=== PATIENT | female | born 1955 | race Caucasian/White ===

== ENCOUNTER → 2022-12-26 07:43 | Outpatient (REF) | payer MEDICARE, OTHER, SELFPAY | LOC: WOUND 07:43 | PROVIDERS: ATTENDING PHYSICIAN Surgery; REFERRING PHYSICIAN Student in an Organized Health Care Education/Training Program | DX: L97.822 Non-pressure chronic ulcer of other part of left lower leg with fat layer exposed (principal); I48.0 Paroxysmal atrial fibrillation; Z79.01 Long term (current) use of anticoagulants; F41.1 Generalized anxiety disorder; I10 Essential (primary) hypertension; I63.411 Cerebral infarction due to embolism of right middle cerebral artery; M17.0 Bilateral primary osteoarthritis of knee; J30.2 Other seasonal allergic rhinitis; K75.81 Nonalcoholic steatohepatitis (NASH) | CPT/HCPCS: 11042; 11045; 99204 ==

== ENCOUNTER → 2023-01-10 10:26 | Outpatient (REF) | payer MEDICARE, OTHER, SELFPAY | LOC: WOUND 10:26 | PROVIDERS: ATTENDING PHYSICIAN Surgery; REFERRING PHYSICIAN Student in an Organized Health Care Education/Training Program | DX: L97.822 Non-pressure chronic ulcer of other part of left lower leg with fat layer exposed (principal); I48.0 Paroxysmal atrial fibrillation; Z79.01 Long term (current) use of anticoagulants; F41.1 Generalized anxiety disorder; I10 Essential (primary) hypertension; I63.411 Cerebral infarction due to embolism of right middle cerebral artery; M17.0 Bilateral primary osteoarthritis of knee; J30.2 Other seasonal allergic rhinitis; K75.81 Nonalcoholic steatohepatitis (NASH) | CPT/HCPCS: 11042; 97597 ==

== ENCOUNTER 2023-02-06 12:35 | Outpatient (RCR) | payer MEDICARE, OTHER, SELFPAY | END 2023-02-06 23:59 | disposition home or self-care (01) | LOC: RPT 12:35 | PROVIDERS: ATTENDING PHYSICIAN Urology; PRIMARYCARE PHYSICIAN Student in an Organized Health Care Education/Training Program | DX: N30.10 Interstitial cystitis (chronic) without hematuria (principal); M62.89 Other specified disorders of muscle; N39.41 Urge incontinence; M62.838 Other muscle spasm; R10.2 Pelvic and perineal pain; M62.81 Muscle weakness (generalized) | CPT/HCPCS: 97140 ==

== ENCOUNTER 2023-03-29 09:29 | Outpatient (RCR) | payer MEDICARE, OTHER, SELFPAY | END 2023-03-29 23:59 | disposition home or self-care (01) | LOC: RPT 09:29 | PROVIDERS: ATTENDING PHYSICIAN Urology; PRIMARYCARE PHYSICIAN Student in an Organized Health Care Education/Training Program | DX: N30.10 Interstitial cystitis (chronic) without hematuria (principal); M62.89 Other specified disorders of muscle; N39.41 Urge incontinence; Z73.6 Limitation of activities due to disability; M62.838 Other muscle spasm; R10.2 Pelvic and perineal pain; M62.81 Muscle weakness (generalized) | CPT/HCPCS: 97140 ==

== ENCOUNTER 2023-04-30 09:35 | Outpatient (RCR) | payer MEDICARE, OTHER, SELFPAY | END 2023-04-30 23:59 | disposition home or self-care (01) | LOC: RPT 09:35 | PROVIDERS: ATTENDING PHYSICIAN Urology; PRIMARYCARE PHYSICIAN Student in an Organized Health Care Education/Training Program | DX: N30.10 Interstitial cystitis (chronic) without hematuria (principal); M62.89 Other specified disorders of muscle; N39.41 Urge incontinence; Z73.6 Limitation of activities due to disability; M62.838 Other muscle spasm; R10.2 Pelvic and perineal pain; M62.81 Muscle weakness (generalized) | CPT/HCPCS: 97140; 97530 ==

== ENCOUNTER → 2023-06-27 08:08 | Outpatient (REF) | payer MEDICARE, OTHER, SELFPAY ==
[2023-06-27 09:18] LABS: % Basophils 0.6 % (0-2); % Eosinophils 0.9 % (0-6); % Immature Granulocytes 0.2 % (0-0.5); % Lymphocytes 24.3 % (20.5-51.1); % Monocytes 9.9 % (1.7-9.3); % Neutrophils 64.1 % (42.2-75.2); Absolute Basophils 0.1 10^3/uL (0-0.2); Absolute Eosinophils 0.1 10^3/uL (0-0.7); Absolute Lymphocytes 2.3 10^3/uL (1.2-3.4); Absolute Monocytes 0.9 10^3/uL (0.1-0.6); Absolute Neutrophils 6.1 10^3/uL (1.4-6.5); Hematocrit 38.8 % (37.0-47.0); Hemoglobin 12.8 g/dL (12.0-16.0); Mean Corpuscular Hgb 28.4 pg (27.0-31.0); Nucleated Red Blood Cells % 0 %; Platelet Count 267 10^3/uL (130-400); Red Blood Cell Count 4.51 10^6/uL (4.20-5.40); Red Cell Dist. Width 17.3 % (11.5-14.5); White Blood Cell Count 9.5 10^3/uL (4.8-10.8)
[2023-06-27 09:27] LABS: INR 1.32; PT 16.4 Sec (11.4-14.6)
[2023-06-27 09:32] LABS: ALT (SGPT) 24 U/L (0-35); AST (SGOT) 27 U/L (14-36); Alkaline Phosphatase 87 U/L (38-126); Blood Urea Nitrogen 26 mg/dl (7-17); Calcium 9.4 mg/dl (8.4-10.2); Carbon Dioxide 29 mmol/L (22-30); Chloride 101 mmol/L (98-107); Glucose 118 mg/dl (70-99); Potassium 3.4 mmol/L (3.5-5.1); Sodium 137 mmol/L (135-145); Total Bilirubin 0.7 mg/dl (0.2-1.3); Total Protein 6.8 g/dl (6.3-8.2); eGFR 54.73
== END ==
LOC: SDSPAT 08:08
PROVIDERS: ATTENDING PHYSICIAN Internal Medicine Cardiovascular Disease; FAMILY PHYSICIAN Family Medicine; OTHER PHYSICIAN Internal Medicine Cardiovascular Disease
DX: Z01.818 Encounter for other preprocedural examination (principal); I48.19 Other persistent atrial fibrillation
CPT/HCPCS: 36415; 75572; 80053; 83735; 85025; 85610; 86850; 86900; 86901; 93005; Q9967

== ENCOUNTER 2023-07-05 05:54 | Day surgery (SDC) | payer MEDICARE, OTHER, SELFPAY ==
[2023-06-27 08:17] VITALS: BMI 39.4
--- NOTE | 2023-06-27 08:45 | W.SUR.PREOP ---
Pre-Operative Surgical Note
-
The pt was seen and examined pre-operatively on 06/27/2023.
While reviewing her medical history, the pt reported a recent UTI within the last 2 weeks.
The pt is a poor historian due to previous CVAs and known cognitive impairment.
Pt reported her UTI was being treated by Dr. Mtz of Urology.
I have reviewed Dr. Mtz's notes extensively from [facility].
The pt reported bloating and urinary burning on 06/17.
Dr. Mtz ordered a UA w/ culture and started the pt prophylactically on Cefuroxime 500 mg PO BID x5 days.
Her urine culture results were + for GBS. Dr. Mtz felt this was more of a contaminant rather than an indicator of infection.
The pt was advised to stop antibiotics, stay hydrated, and start AZO.
Pt requested Pyridium instead of AZO which Dr. Mtz was agreeable to.
She is no longer taking the Pyridium. She notes that her previous symptoms have significantly improved.
The pt was advised to call Dr. Florez's office should her symptoms return as her procedure may need to be postponed.
--- NOTE | 2023-06-27 09:15 | HPS.HSE ---
Family Physician
-
Family Physician: Lakisha William
Chief Complaint
-
Persistent atrial fibrillation.
History of Present Illness
The patient is a 68-year-old female presenting today for persistent atrial fibrillation. She notes significant fatigue and tiredness secondary to this diagnosis. The patient has undergone 4 failed cardioversions in the past for her
arrhythmia. She is on current pharmacological therapy with Amiodarone. She had a Watchman implantation in August [address] Shawn Florez due to an elevated HAS-BLED score. She has known ambulatory dysfunction with multiple previous falls for which
she uses a single point cane to walk. She also has previously experienced 3 strokes for which chronic anticoagulation was highly recommended. Eliquis for oral anticoagulation was initially stopped and switched to dual antiplatelet therapy after her
45 day post-procedural transesophageal echocardiogram in October 2022 demonstrated a well seated Watchman implant without leaks. She, however, was restarted on Eliquis per her primary section gang, Dr. Enrike Cabrera, after a April 2023
transesophageal echocardiogram noted a small leak. It is recommended she undergo pulmonary vein isolation at this time for further arrhythmia management. She denies any current complaints today such as chest pain, shortness of breath, palpitations,
nausea, vomiting, diarrhea, lightheadedness, dizziness, cough, sore throat, or fever.
Medical History
Past Medical History
Past Medical History: Reports Other
Additional Past Medical History:
1. Persistent atrial fibrillation, status post cardioversion x4 and Watchman implantation 08/15/2022; pharmacological therapy with Amiodarone, oral anticoagulation with Eliquis.
2. Hypertension.
3. Hyperlipidemia.
4. Chronic diastolic heart failure, preserved ejection fraction.
5. Mild mitral regurgitation.
6. Chronic lymphedema with venous insufficiency.
7. Obstructive sleep apnea, compliant with CPAP.
8. Chronic kidney disease stage 3.
9. Hiatal hernia.
10. Diverticulosis.
11. Hemorrhoids.
12. Nonalcoholic steatohepatitis with history of elevated transaminases.
13. 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
14. Remote migraines.
15. Mild cognitive impairment.
16. Ambulatory dysfunction with history of falls.
17. Interstitial cystitis with urinary frequency.
18. Neurogenic bladder.
19. Skin cancer, 11/2022, status post excision.
20. ADHD.
21. Anxiety.
22. Depression.
23. Claustrophobia.
24. Osteopenia.
25. History of recurrent COVID-19, last 11/30/2021.
26. Insomnia.
27. Obesity, BMI 39.4.
Past Surgical History: Reports Other
Additional Past Surgical History:
1. Watchman implantation.
2. Cardioversion x4.
3. Transesophageal echocardiogram x2.
4. Right knee arthroscopy.
5. Total abdominal hysterectomy and bilateral salpingo-oophorectomy.
6. Cholecystectomy.
7. .
8. Cysto-hydrodistention with bladder installation.
9. Breast augmentation.
10. Colonoscopy.
Social History
Tobacco: Non-smoker
Alcohol: None
Personal:
Living: Other (The patient lives in a one-story home with her .)
Family History
Family History: Not pertinent
Allergies / Home Medications
Allergy/Medication List:
MEDICATIONS:
1. Amiodarone 200 mg p.o. every evening.
2. Amitriptyline 50 mg p.o. at bedtime.
3. Aripiprazole 2 mg p.o. daily.
4. Hair, skin, nails 1 tablet p.o. daily.
5. Aspirin 81 mg p.o. daily.
6. Atorvastatin 40 mg p.o. at bedtime.
7. Cholecalciferol 50 mcg p.o. at bedtime.
8. Eliquis 5 mg p.o. twice a day.
9. Estradiol 1 application vaginal daily as needed.
10. Furosemide 40 mg p.o. twice a day.
11. Magnesium oxide 800 mg p.o. at bedtime.
12. Melatonin 20 mg p.o. at bedtime.
13. Myrbetriq 25 mg p.o. daily.
14. Prevagen 1 tablet p.o. daily.
15. Multivitamin 1 tablet p.o. daily.
16. Solifenacin 5 mg p.o. daily.
17. Zolpidem 7.5 mg p.o. at bedtime.
ALLERGIES: Nitrofurantoin. Sulfa.
Review of Systems
-
A 12 point ROS was completed and negative except as noted: Yes
Physical Exam
Vital Signs
Blood pressure 103/57. Heart rate 68. Respirations 18. Pulse ox 96% on room air.
Height 5 feet, 2 inches. BMI 97.6 kg. BMI 39.4.
Physical Exam
General: Well Developed, Well Nourished and No Apparent Distress
HEENT: NormoCephalic, Moist mucous membranes, Atraumatic and PERRLA
Respiratory: Clear
Cardiac: Irregular Rhythm
GI: Soft, Non Tender, Non Distended and Other (Obese. )
Musculoskeletal: Other (Patient walks with a single point cane. Chronic left sided weakness noted. )
Skin: Warm and Dry
Neuro: AO x 3 and Other (Mild cognitive deficits at baseline. )
Laboratory Results
-
DIAGNOSTIC STUDIES as of 06/27/2023: White blood cell count 9.5. Hemoglobin 12.8. Platelet count 267,000. PT 16.2. INR 1.34. Sodium 137. Potassium 3.4. BUN 26. Creatinine 1.1. Glucose 118. Calcium 9.4. AST 27. ALT 24. Albumin 4.0. Blood type A
positive.
EKG 06/27/2023: Atrial flutter with variable AV block.
Chest CT 06/27/2023: The left atrium is well opacified including the left atrial appendage with no evidence of left atrial thrombus.
Transesophageal echocardiogram 04/13/2023: Ejection fraction is 55-60%. There is a small area of likely flow around the MARI closure device but no thrombus was noted.
Impression/Plan
-
IMPRESSION/PLAN:
1. Persistent atrial fibrillation: The patient is in need of pulmonary vein isolation with Dr. Shawn Florez on 07/05/2023. The benefits and risks of the procedure have been explained to the patient. The patient understands these risks and wishes to
proceed. She is aware to hold her Eliquis the morning of her procedure unless she is otherwise directed by her surgeon. She will not take any of her medications the morning of her pulmonary vein isolation.
[2023-07-05] VITALS (13 sets, daily range): BP systolic 90–114; BP diastolic 48–82; BMI 38.3
[2023-07-05] MEDS: TYLENOL 1000 MG PO (07:06)
[2023-07-05 08:57] LABS: ACT-LR - POC 263 Seconds (116-155)
[2023-07-05 09:15] LABS: ACT-LR - POC 284 Seconds (116-155)
[2023-07-05 09:32] LABS: ACT-LR - POC 302 Seconds (116-155)
--- NOTE | 2023-07-05 10:24 | ITS.CL.ABL ---
Ground Control Approach Technician - Ablation
Ablation
Procedure Report:
ELECTROPHYSIOLOGY ABLATION STUDY
DATE:: July 05, 2023 REFERRING: Dr. Enrike Cabrera
INDICATION: Persistent supraventricular tachycardia in the form of atrial fibrillation. Prior watchman implantation
HISTORY: See H and P. As above
ANTIARRHYTHMIC DRUG: Amiodarone
PRE-PROCEDURE JUSTICE: No thrombus or leak noted on the Watchman device at intracardiac ultrasound prior to transseptal puncture
PRESENTING RHYTHM: Atrial fibrillation
'TIME-OUT': called and confirmed.
SEDATION/ANESTHESIA: provided via the anesthesia department using general anesthesia (LMA).
INTRAVENOUS/ARTERIAL ACCESS:
Right femoral venous - 8Fr
Left femoral venous - 8 Fr, 6 Fr
[id number] stitch was applied to each femoral vein
Ultrasound guidance for bilateral femoral vein access was utilized by me to obtain access with demonstration of normal anatomy
Inadvertent arterial puncture was noted on the right femoral artery x 1 and pressure was held for the duration of the case. The artery and vein were overlying with the RV underfilled. We did infuse 500 cc of normal saline and venous access was
accomplished in both left and right femoral veins.
CHADS-VASC Score:
HAS-Bled Score
PROCEDURE:
1. A decapolar CS catheter was placed within the CS for mapping and pacing. This was also used as the reference catheter for the 3-D map.
2. The intracardiac ultrasound catheter was positioned in the RA to identify the FO for targeting of transseptal puncture, assist in identification of the pulmonary vein ostia, monitoring pre and post ablation pulmonary vein flow velocities,
monitoring for 'bubble' formation during RF application as a sign of thermal injury, and to monitor for pericardial effusion during mapping and ablation procedure. Left atrial size, LV ejection fraction, and pulmonary vein flows were monitored
pre and post ablation procedure. The other valves were inspected and found to be free of significant regurgitation or stenosis. Direct imaging of the left atrial appendage closure device�watchman demonstrated no left atrial appendage leak or device
related thrombus
3. Half of the calculated heparin bolus was administered prior to the first transeptal puncture. The wire could easily cross in the left atrium across a PFO and this was not utilized for transseptal puncture given the high and anterior position.
We performed transseptal puncture more posterior and inferior for left atrial access. Transseptal puncture was performed to diagnose RA and LA pressure so that safety of LA mapping and ablation could be further assessed, and to access the left
atrium and pulmonary veins for mapping and ablation. This entailed advancing an 8 Fr SL-1 sheath with dilator into the superior vena cava and withdrawing both (monitoring intracardiac ultrasound, fluoroscopy and tip pressure) with the tip oriented
toward the atrial septum. The fossa ovalis was engaged (indicated by sudden displacement of the sheath tip as well as tenting of the fossa seen on intracardiac ultrasound). Left atrial access required a pass with the Brockenbrough needle extended.
Left atrial catheter position was confirmed by pressure monitoring (RA mean pressure 8 mm Hg and LA mean presure 14 mm Hg), LA saturation (99%), as well as fluoroscopy. The sheath was advanced over the dilator and positioned in the left atrium.
This procedure was repeated for the Agilis sheath. The remainder of the calculated heparin bolus was administered and heparin was
infused to maintain ACT at 300 -350 seconds throughout the case.
4. RA pacing was performed via the proximal decapolar poles and LA pacing was performed via the distal decapolar poles.
5. A quadrapolar catheter was first positioned at the His position for His Bundle recording which was tagged via the 3-D Navex sytem, and then passed to the RVA for RV pacing and recording.
6. The 28 mm cryoballoon and 15 mm octapolar G recording catheter placed in each of the LIPV, LSPV, RSPV and the RIPV.
7. Next, a 3-D map was created using Navex. A 3-D reconstructed CT image was compared to the 3-D Navex map to assist in anatomic interpretation, mapping and ablation. The CT image and the NavX image were fused.
8. Pulmonary vein and extrapulmonary vein lesions were given with a 2-minute extrapulmonary vein lesion to the posterior wall outside the left superior pulmonary vein and a 3-minute lesion given to the posterior wall and rafy outside the left
inferior pulmonary vein. Pulmonary vein lesions were 1 distinct unit freezing application to the left superior left inferior and right superior and 1 distinct 3 and 1 distinct 2-minute freezing application to the segmental faction to the right
inferior pulmonary vein. The patient was cardioverted to sinus rhythm and entrance next block was confirmed in all 4 pulm veins and the esophagus cooled down to 30.0 �C with ablation of the left and no loss of phrenic nerve capture was noted.
9. Normal sinus node and AV node function were noted.
TOTAL FLOURO TIME: 12.5 minutes 170 mGy
TOTAL RF DURATION: 0 minutes
REVERSAL OF HEPARIN: 35 mg of protamine, slow IV administration
COMPLICATIONS:
None
Intracardiac US shows no pericardial effusion post ablation.
SUMMARY:
Complex left atrial mapping and ablation.
Isolation of all 4 pulmonary veins as above and extrapulmonary lesions given to the roof and posterior wall outside the left veins.
RECOMMENDATIONS:
1. Admit to monitored bed.
2. Resume anticoagulation for minimum 3 months and given the left atrial appendage appears occluded without leak on today's intracardiac ultrasound if she remains in sinus rhythm we could consider discontinuation of oral anticoagulation at 3 months
3. Out of bed 4 hours
4. Consider discontinuing amiodarone in 1 month
Copy to: Dr. Enrike Cabrera
--- NOTE | 2023-07-05 13:41 | W.PN.UPDATE ---
Update Note
Progress Note Update
68 yo WF s/p PVI (same day). She feels good, no cp, sob, christiana diet, groins stable, EKG SR 1deg AVB. She will continue Eliquis for at least 3 mo, dose at 4pm at home. Continue Amiodarone and metoprolol. Activity restrictions reviewed. She will f/u
Rick in 2 mo. She did get Eliquis samples [address] Florez office prior to d/c. She is for d/c home after 230p.
SUMMARY:
Complex left atrial mapping and ablation.
Isolation of all 4 pulmonary veins as above and extrapulmonary lesions given to the roof and posterior wall outside the left veins.
RECOMMENDATIONS:
1. Admit to monitored bed.
2. Resume anticoagulation for minimum 3 months and given the left atrial appendage appears occluded without leak on today's intracardiac ultrasound if she remains in sinus rhythm we could consider discontinuation of oral anticoagulation at 3 months
3. Out of bed 4 hours
4. Consider discontinuing amiodarone in 1 month
Copy to: Dr. Enrike Cabrera
== END 2023-07-05 14:30 | disposition home or self-care (01) ==
LOC: CATH 05:54
PROVIDERS: ATTENDING PHYSICIAN Internal Medicine Cardiovascular Disease; FAMILY PHYSICIAN Family Medicine; OTHER PHYSICIAN Internal Medicine Cardiovascular Disease
DX: I48.19 Other persistent atrial fibrillation (principal); I13.0 Hypertensive heart and chronic kidney disease with heart failure and stage 1 through stage 4 chronic kidney disease, or unspecified chronic kidney disease; E78.5 Hyperlipidemia, unspecified; G47.33 Obstructive sleep apnea (adult) (pediatric); I34.0 Nonrheumatic mitral (valve) insufficiency; K44.9 Diaphragmatic hernia without obstruction or gangrene; K57.90 Diverticulosis of intestine, part unspecified, without perforation or abscess without bleeding; I89.0 Lymphedema, not elsewhere classified; I87.2 Venous insufficiency (chronic) (peripheral); Z87.19 Personal history of other diseases of the digestive system; K75.81 Nonalcoholic steatohepatitis (NASH); R74.01 Elevation of levels of liver transaminase levels; Z86.73 Personal history of transient ischemic attack (TIA), and cerebral infarction without residual deficits; G43.909 Migraine, unspecified, not intractable, without status migrainosus; G31.84 Mild cognitive impairment of uncertain or unknown etiology; R26.2 Difficulty in walking, not elsewhere classified; N30.10 Interstitial cystitis (chronic) without hematuria; R35.0 Frequency of micturition; N31.9 Neuromuscular dysfunction of bladder, unspecified; Z85.828 Personal history of other malignant neoplasm of skin; F41.9 Anxiety disorder, unspecified; F90.9 Attention-deficit hyperactivity disorder, unspecified type; F32.A Depression, unspecified; F40.240 Claustrophobia; M85.80 Other specified disorders of bone density and structure, unspecified site; Z86.16 Personal history of COVID-19; G47.00 Insomnia, unspecified; E66.9 Obesity, unspecified; Z68.39 Body mass index [BMI] 39.0-39.9, adult; Z79.82 Long term (current) use of aspirin; Z79.01 Long term (current) use of anticoagulants; Z79.899 Other long term (current) drug therapy; Z95.818 Presence of other cardiac implants and grafts
CPT/HCPCS: C1766; C1894; C1769; C1730; C1893; C1733; C1892; C1759; 85347; 93005; 93656; Q9967

== ENCOUNTER → 2024-01-09 10:27 | Outpatient (REF) | payer MEDICARE, OTHER, SELFPAY | LOC: HWRAD 10:27 | PROVIDERS: ATTENDING PHYSICIAN Nurse Practitioner; FAMILY PHYSICIAN Nurse Practitioner Family | DX: R05.1 Acute cough (principal); K59.00 Constipation, unspecified | CPT/HCPCS: 71046; 74018 ==

== ENCOUNTER 2024-01-28 06:51 | Inpatient (IN) | payer MEDICARE, OTHER, SELFPAY ==
[2024-01-03 10:16] VITALS: BMI 39.3
[2024-01-03 10:46] LABS: Hematocrit 40.2 % (37.0-47.0); Hemoglobin 13.2 g/dL (12.0-16.0); Mean Corp Hgb Conc. 32.8 g/dL (33.0-37.0); Mean Corpuscular Hgb 29.1 pg (27.0-31.0); Mean Corpuscular Volume 88.5 fL (81.0-99.0); Mean Platelet Volume 9.7 fL (7.4-10.4); Platelet Count 250 10^3/uL (130-400); Red Blood Cell Count 4.54 10^6/uL (4.20-5.40); Red Cell Dist. Width 13.8 % (11.5-14.5); White Blood Cell Count 6.2 10^3/uL (4.8-10.8)
[2024-01-03 11:11] LABS: ALT (SGPT) 29 U/L (0-35); AST (SGOT) 28 U/L (14-36); Albumin 3.8 g/dl (3.5-5.0); Alkaline Phosphatase 93 U/L (38-126); Blood Urea Nitrogen 16 mg/dl (7-17); Calcium 8.9 mg/dl (8.4-10.2); Carbon Dioxide 33 mmol/L (22-30); Chloride 98 mmol/L (98-107); Estimated Creatinine Clearance 65 ml/min; Glucose 91 mg/dl (70-99); Potassium 3.4 mmol/L (3.5-5.1); Sodium 143 mmol/L (135-145); Total Bilirubin 0.5 mg/dl (0.2-1.3); Total Protein 6.5 g/dl (6.3-8.2); eGFR > 60.00
[2024-01-03 13:13] LABS: Glycohemoglobin (HgbA1c) 5.9 % (4.0-5.6)
[2024-01-22 11:37] VITALS: BMI 39.3
--- NOTE | 2024-01-23 08:54 | PTCARENOTE ---
Jeniffer Bean made aware of CXR report from 01/09/24.
[2024-01-28] VITALS (15 sets, daily range): BP systolic 98–130; BP diastolic 53–90; PULSE 86; O2SAT 95; BMI 39.3
[2024-01-28] MEDS: TYLENOL 650 MG PO ×4 (07:45→20:46)
[2024-01-28] MEDS: MOBIC 15 MG PO (07:45)
[2024-01-28] MEDS: NORMOSOL-R/PLASMALYTE-A 1000 IV (11:43)
[2024-01-28] MEDS: ROXICODONE 5 MG PO ×2 (11:47→17:22)
--- NOTE | 2024-01-28 13:34 | W.PN.ORTHO ---
Today's Communication / Plan
-
D/c when medically stable.
Assessment
.
Distal Motor Intact: Yes
Dressing:
Small areas of bleeding along incision line.
Assessment:
R knee OA s/p R TKA w/ Dr Eisenberg 01/28/24
DVT prophylaxis - Eliquis at modified dosing, b/l venous foot pumps
- Will resume home Eliquis dosing POD 3 if hemodynamically stable
HTN - + parameters - monitor BP
Persistent atrial fibrillation, status post cardioversion x4, ablation 07/2023, and Watchman implantation 08/2022 - monitor on tele
- Continue Amiodarone, Metoprolol
- Eliquis as stated above
Chronic diastolic heart failure, preserved ejection fraction - reduce hourly IVF rate to prevent fluid overload
- Resume Lasix w/ BP parameters to prevent hypotension
Obstructive sleep apnea, compliant with CPAP - monitor O2
- IS
- Continue CPAP HS
CKD stage 3 - minimize nephrotoxins
Hiatal hernia - add Pepcid HS
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
Ambulatory dysfunction with history of falls
- On fall precautions
Mild cognitive impairment - minimize opioids as able
Obesity, BMI 39.2 - would benefit from prophylactic Cefadroxil upon d/c
HLD
Mild mitral regurgitation
Chronic lymphedema with venous insufficiency
Diverticulosis
Hemorrhoids
Nonalcoholic steatohepatitis with history of elevated transaminases
Remote migraines
Interstitial cystitis with urinary frequency
Neurogenic bladder
Skin cancer, 11/2022, status post excision
ADHD
Anxiety
Depression
Claustrophobia
Osteopenia
History of recurrent COVID-19, last 11/30/2021
Insomnia
Mild hypokalemia
Prediabetes, A1c 5.9
Plan
.
Surgery / Date: R TKA w/ Dr Eisenberg 01/28/24
DVT Prophylaxis: Other (Eliquis )
Activity:
Out of bed.
PT/OT
Discharge Plan: Home w/ Outpatient PT
Subjective
.
.:
Patient examined resting in bed.
R knee pain 'creeping up' - pain medications adjusted.
Denies any other new significant complaints.
Vital Signs and Labs
.
Vital Signs and Labs:
Lab Results
01/03/24 10:13
01/03/24 10:13
Temp Pulse Resp BP Pulse Ox
98.2 F 90 18 130/90 98
01/28/24 07:19 01/28/24 07:19 01/28/24 07:19 01/28/24 07:19 01/28/24 07:19
Physical Exam
-
HEENT: No pallor, cyanosis, or jaundice. Throat clear.
NECK: Supple. No JVD.
RESPIRATORY: Lungs clear to auscultation.
CVS: S1, S2 normal. RRR.�
ABDOMEN: Soft, non-tender. No distension. Obese.
EXTREMITIES: Strength equal, no calf pain with palpation/dorsiflexion. Calves soft.
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 Mild cognitive deficits at baseline. gunner's mate g grossly intact
[2024-01-28] MEDS: ROXICODONE 2.5 MG PO (13:59)
[2024-01-28] MEDS: NEURONTIN 200 MG PO ×2 (14:00→20:47)
--- NOTE | 2024-01-28 15:07 | RESPNOTE ---
Patient refused CPAP for HS at this time. States she doesn't use it at home either.
[2024-01-28] MEDS: ANCEF 5 IV (17:20)
[2024-01-28] MEDS: SENOKOT PO (20:14)
[2024-01-28] MEDS: TOPROL XL 50 MG PO (20:44)
[2024-01-28] MEDS: ELAVIL 50 MG PO (20:45)
[2024-01-28] MEDS: VITAMIN D3 (cholecalciferol) 50 MCG PO (20:45)
[2024-01-28] MEDS: SENOKOT 17.2 MG PO (20:45)
[2024-01-28] MEDS: PACERONE 200 MG PO (20:45)
[2024-01-28] MEDS: DECADRON 4 MG PO (20:46)
[2024-01-28] MEDS: PEPCID 20 MG PO (20:46)
[2024-01-28] MEDS: COLACE 100 MG PO (20:47)
[2024-01-28] MEDS: BACTROBAN 2% OINTMENT 1 APPLIC NASAL (20:47)
[2024-01-28] MEDS: AMBIEN 7.5 MG PO (20:47)
[2024-01-28] MEDS: ELIQUIS 2.5 MG PO (20:47)
[2024-01-28] MEDS: MELATONIN 5 MG PO (20:48)
[2024-01-28] MEDS: LIPITOR 40 MG PO (20:49)
[2024-01-28] MEDS: ROXICODONE 10 MG PO (21:54)
[2024-01-29] VITALS (8 sets, daily range): BP systolic 72–122; BP diastolic 51–77; PULSE 65–111; O2SAT 88–95; BMI 41.1
[2024-01-29] MEDS: TYLENOL PO (01:39)
[2024-01-29] MEDS: ANCEF 5 IV (01:45)
[2024-01-29] MEDS: TYLENOL 650 MG PO ×6 (03:19→23:35)
[2024-01-29] MEDS: ROXICODONE 10 MG PO ×2 (03:19→08:03)
[2024-01-29 05:37] LABS: Hematocrit 34.2 % (37.0-47.0); Hemoglobin 10.8 g/dL (12.0-16.0)
[2024-01-29 06:51] LABS: Hepatitis C Antibody Negative (Negative)
[2024-01-29] MEDS: VESICARE 10 MG PO (07:57)
[2024-01-29] MEDS: TOPROL XL 50 MG PO ×2 (07:58→20:51)
[2024-01-29] MEDS: COLACE 100 MG PO ×2 (07:58→20:52)
[2024-01-29] MEDS: ABILIFY 2 MG PO (07:59)
[2024-01-29] MEDS: ASPIR LOW (ENTERIC COATED) 81 MG PO (07:59)
[2024-01-29] MEDS: BACTROBAN 2% OINTMENT 1 APPLIC NASAL ×2 (07:59→20:50)
[2024-01-29] MEDS: DECADRON 4 MG PO ×2 (07:59→20:53)
[2024-01-29] MEDS: PACERONE 200 MG PO ×2 (07:59→20:53)
[2024-01-29] MEDS: NEURONTIN 200 MG PO ×2 (07:59→20:52)
[2024-01-29] MEDS: ELIQUIS 2.5 MG PO ×2 (08:00→20:53)
[2024-01-29] MEDS: SENOKOT 17.2 MG PO ×2 (08:00→20:53)
[2024-01-29] MEDS: ProAmatine 2.5 MG PO ×2 (09:40→17:15)
[2024-01-29] MEDS: NSS 250 IV (09:40)
--- NOTE | 2024-01-29 10:11 | CM ---
Patient seen at bedside with Loco KENT explained & signed.
IA completed. Case management consult completed.
Lives in a rancher with , 1 step to enter
DME: cane, walker, shower chair, commode, handrails toilet, grab bars, cpap
PLOF: ambulate with walker, was driving
Patient has outpatient PT set up for tomorrow at [facility]
therapy to re-eval as patient - patient low b/p, rec bolus fluid, dose midodrine
PCP: Lakisha Lane
Pharmacy: [facility], [facility], [place]
PLAN: Discharge when stable, outpatient therapy tomorrow
--- NOTE | 2024-01-29 11:09 | W.PN.ORTHO ---
Today's Communication / Plan
-
Monitor orthostatics and drowsiness.
Work w/ PT and OT as able.
Can d/c later today if clinically stable.
Assessment
.
Distal Motor Intact: Yes
Dressing:
Small areas of old bleeding along incision line. Larger area noted towards inferior portion of dressing.
Assessment:
R knee OA s/p R TKA w/ Dr Eisenberg 01/28/24
DVT prophylaxis - Eliquis at modified dosing, b/l venous foot pumps
- Will resume home Eliquis dosing POD 3 if remaining hemodynamically stable
Drowsiness POD 1 - likely 2* Oxycodone 10 mg today and underlying untreated KERI - reduce Oxycodone dosing (tolerated 5 mg yesterday), STRONGLY encouraged CPAP HS use
Symptomatic orthostasis w/ OT - IVF bolus, PO fluids encouraged, Midodrine, minimize opioids as able - will reassess orthostatic VS after bolus
HTN - + parameters - monitor BP
Persistent atrial fibrillation, status post cardioversion x4, ablation 07/2023, and Watchman implantation 08/2022 - maintaining rate controlled a fib on tele
- Continue Amiodarone, Metoprolol w/ SBP and HR parameters
- Eliquis as stated above
Chronic diastolic heart failure, preserved ejection fraction - reduced hourly IVF rate to prevent fluid overload
- Resumed Lasix w/ BP parameters to prevent hypotension
KERI, recent non-compliance w/ CPAP - encouraged CPAP HS use given low SpO2 overnight and current daytime somnolence
- IS
CKD stage 3 - minimized nephrotoxins
Hiatal hernia - added Pepcid HS
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
Ambulatory dysfunction with history of falls
- On fall precautions
Mild cognitive impairment - minimize opioids as able
Obesity, BMI 39.2 - would benefit from prophylactic Cefadroxil upon d/c
HLD
Mild mitral regurgitation
Chronic lymphedema with venous insufficiency
Diverticulosis
Hemorrhoids
Nonalcoholic steatohepatitis with history of elevated transaminases
Remote migraines
Interstitial cystitis with urinary frequency
Neurogenic bladder
Skin cancer, 11/2022, status post excision
ADHD
Anxiety
Depression
Claustrophobia
Osteopenia
History of recurrent COVID-19, last 11/30/2021
Insomnia
Mild hypokalemia
Prediabetes, A1c 5.9
Plan
.
Surgery / Date: R TKA w/ Dr Eisenberg 01/28/24
DVT Prophylaxis: Other (Eliquis )
Activity:
Out of bed.
PT/OT
Discharge Plan: Home w/ Outpatient PT
Subjective
.
.:
Patient examined resting in bed today.
Drowsiness noted, likely multifactorial.
Symptomatic orthostasis w/ OT this AM.
Vital Signs and Labs
.
Vital Signs and Labs:
Lab Results
01/29/24 05:24
01/03/24 10:13
Temp Pulse Resp BP Pulse Ox
98.3 F 94 20 101/55 93
01/29/24 03:05 01/29/24 07:58 01/29/24 03:05 01/29/24 07:58 01/29/24 03:18
Non-invasive Hgb result: 8.9
Physical Exam
-
HEENT: No pallor, cyanosis, or jaundice. Throat clear.
NECK: Supple. No JVD.
RESPIRATORY: Faint crackles in b/l bases.
CVS: Irregular irregular.
ABDOMEN: Soft, non-tender. No distension. Obese.
EXTREMITIES: Strength equal, no calf pain with palpation/dorsiflexion. Calves soft.
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 No focal deficits. mva operator grossly intact
--- NOTE | 2024-01-29 12:03 | PTCARENOTE ---
Addendum entered by Yady Marcial RN 01/29/24 12:49:
Bed alarm engaged. Care remains ongoing.
Original Note:
RN informed by Reginald Bean Pa-c that she heard a rolling walker being used within the room. When she went to check on the pt the pt was sitting up in the chair. Per the pt and the woke the pt from sleep and assisted her into the chair
to eat lunch, pt denying dizziness to Vanessa at that time. RN into room and found pt sitting the chair with no socks and the telemetry box hanging between her legs. RN applied blood pressure cuff and asked pt ' how are you feeling' pt responded ' I
almost fell getting out of bed, I am very unsteady and kept losing my balance'. Pt at this time c/o dizziness, drowsiness and pain, requesting to get back into bed due to not liking her lunch. BP 95/64. Reginald Bean made aware and BP re-cycled 87/51 pt
continuing to c/o dizziness, drowsiness and pain. Reginald Bean updated. Pt denies CP, SOB, nausea. Pt and instructed on calling for assistance, safe ambulation, and ongoing hypotension affecting safe ambulation. verbalized
understanding, pt with concerns regarding pain and need for pain medication as well as dissatisfaction with lunch. Zee from PT to bedside to evaluate pt. Care ongoing at this time.
--- NOTE | 2024-01-29 15:32 | W.PN.UPDATE ---
Update Note
Progress Note Update
Pt noted to be overly drowsy while working w/ OT this AM.
Of note, pt did receive multiple doses of Oxycodone 10 mg overnight and had one shortly before her OT session.
AM OT session further complicated by symptomatic orthostasis - IVF bolus, Midodrine ordered.
Per PT and OT, BPs now relatively stable during afternoon session.
Drowsiness and slow processing, however, still continue to be issues. She does have mild cognitive issues at baseline. Symptoms reportedly better than this AM but still limiting her progression with therapy.
I have decreased Oxycodone as follows: 2.5 mg PO q4hprn for moderate pain, 5 mg PO q4hprn for severe pain.
Will continue with Tylenol, Decadron, and Gabapentin for post-surgical pain.
Did also advise strict CPAP compliance as untreated KERI can also be attributing to her daytime somnolence.
Will monitor further overnight. Hopeful things will continue to improve w/ time.
[2024-01-29] MEDS: ELAVIL 50 MG PO (22:30)
[2024-01-29] MEDS: AMBIEN PO (22:30)
[2024-01-29] MEDS: VITAMIN D3 (cholecalciferol) 50 MCG PO (22:30)
[2024-01-29] MEDS: LIPITOR 40 MG PO (22:30)
[2024-01-29] MEDS: PEPCID 20 MG PO (22:30)
[2024-01-30 02:55] VITALS: BP 119/80
[2024-01-30] MEDS: TYLENOL 650 MG PO ×3 (04:49→11:54)
--- NOTE | 2024-01-30 05:28 | DOWNTIME ---
There was a [employer] Client [employer] Downtime on 01/30/2024 from 0100 to 01/30/2024 at 0350. Downtime documentation of patient's care, including medication administrations, has been reconciled in the electronic record per guidelines. Refer to the
patient's paper chart under the miscellaneous tab to see printed paper medication records and downtime forms.
[2024-01-30 06:00] VITALS: BMI 41.3
[2024-01-30 08:11] VITALS: BP 124/75
[2024-01-30] MEDS: ABILIFY 2 MG PO (08:12)
[2024-01-30] MEDS: VESICARE 10 MG PO (08:12)
[2024-01-30] MEDS: TOPROL XL 50 MG PO (08:13)
[2024-01-30] MEDS: ELIQUIS 2.5 MG PO (08:13)
[2024-01-30] MEDS: ASPIR LOW (ENTERIC COATED) 81 MG PO (08:13)
[2024-01-30] MEDS: NEURONTIN 200 MG PO (08:13)
[2024-01-30] MEDS: PACERONE 200 MG PO (08:14)
[2024-01-30] MEDS: DECADRON 4 MG PO (08:14)
[2024-01-30] MEDS: ProAmatine PO (08:14)
[2024-01-30] MEDS: SENOKOT 17.2 MG PO (08:15)
[2024-01-30] MEDS: COLACE 100 MG PO (08:15)
[2024-01-30 09:00] VITALS: BP 116/77; BP 128/94; PULSE 73; O2SAT 94
--- NOTE | 2024-01-30 09:02 | W.PN.ORTHO ---
Addendum entered and electronically signed by Jeniffer Bean PA-C 01/30/24 11:02:
BMI incorrect. BMI 41.3.
Original Note:
Today's Communication / Plan
-
Await PT recs. Pt did well w/ OT this AM.
D/c later today if remaining clinically stable.
Assessment
.
Distal Motor Intact: Yes
Dressing:
Small areas of old bleeding along incision line. Larger area noted towards inferior portion of dressing. Unchanged since yesterday but will change prior to d/c.
Assessment:
R knee OA s/p R TKA w/ Dr Eisenberg 01/28/24
DVT prophylaxis - Eliquis at modified dosing, b/l venous foot pumps
- Will resume home Eliquis dosing POD 3 since hemodynamically stable
Drowsiness POD 1 2* Oxycodone (revealed POD 2 shes had problems with this previously) and underlying untreated KERI
- Stop Oxycodone altogether in favor of Tylenol #3; pt has tolerated well previously.
- Advised strict CPAP compliance
- Hold Melatonin while on Ambien and post-surgical narcotic
- Drowsiness improved by POD 2
Symptomatic orthostasis w/ OT POD 1- s/p IVF bolus, encouraged PO fluids, Midodrine x2, minimized opioids as able
- Orthostatic VS improved
HTN - + parameters - BPs now stable
Persistent atrial fibrillation, status post cardioversion x4, ablation 07/2023, and Watchman implantation 08/2022 - maintaining rate controlled a fib/flutter on tele
- Continue Amiodarone, Metoprolol w/ SBP and HR parameters
- Eliquis as stated above
Chronic diastolic heart failure, preserved ejection fraction - reduced hourly IVF rate to prevent fluid overload
- Weight up in comparison to yesterday -> Normal weight around 220 lbs per cardio clearance. Will give IV Lasix 20 mg this morning. Can resume home PO Lasix BID tonight w/ smaller BP parameters. Was held initially due to orthostasis yesterday.
Apparently pt also held Lasix prior to surgery as well. Pt denies SOB and lungs overall CTA. VSS. Is aware to follow low sodium diet, fluid restriction, and to weigh herself daily. Aware to contact her poultry cutter for further concerning weight
gains. Advised to f/u w/ cardio in near future given CV hx
KERI, recent non-compliance w/ CPAP - advised restarting CPAP
- IS
CKD stage 3 - minimized nephrotoxins
Hiatal hernia - added Pepcid HS
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
Ambulatory dysfunction with history of falls
- On fall precautions
Mild cognitive impairment - continue to minimize opioids as able
Anemia 2* acute blood loss - pt asymptomatic, hemodynamically stable
Obesity, BMI 39.2 - would benefit from prophylactic Cefadroxil upon d/c
HLD
Mild mitral regurgitation
Chronic lymphedema with venous insufficiency
Diverticulosis
Hemorrhoids
Nonalcoholic steatohepatitis with history of elevated transaminases
Remote migraines
Interstitial cystitis with urinary frequency
Neurogenic bladder
Skin cancer, 11/2022, status post excision
ADHD
Anxiety
Depression
Claustrophobia
Osteopenia
History of recurrent COVID-19, last 11/30/2021
Insomnia
Mild hypokalemia - will supplement today w/ reintroduction of Lasix
Prediabetes, A1c 5.9
Plan
.
Surgery / Date: R TKA w/ Dr Eisenberg 01/28/24
DVT Prophylaxis: Other (Eliquis )
Activity:
Out of bed.
PT/OT
Discharge Plan: Home w/ Outpatient PT
Subjective
.
.:
Patient resting comfortably in her bed.
Pt appears less drowsy then yesterday. Conversant and reportedly feeling well.
Denies any new significant complaints.
Eager for potential d/c today.
Vital Signs and Labs
.
Vital Signs and Labs:
Lab Results
01/29/24 05:24
01/03/24 10:13
Temp Pulse Resp BP Pulse Ox
98 F 98 20 124/75 94
01/30/24 08:11 01/30/24 08:13 01/30/24 08:11 01/30/24 08:14 01/30/24 08:11
Non-invasive Hgb result: 9.7
Physical Exam
-
HEENT: No pallor, cyanosis, or jaundice. Throat clear.
NECK: Supple. No JVD.
RESPIRATORY: Lungs clear to auscultation.
CVS: Irregular irregular.
ABDOMEN: Soft, non-tender. Obese.
EXTREMITIES: Post-surgical R knee edema. Strength equal, no calf pain with palpation/dorsiflexion. Calves soft.
CASH CONTROL SPECIALIST: AOx3. No focal deficits. blockmason grossly intact
[2024-01-30] MEDS: KCL 20 MEQ PO (09:25)
[2024-01-30] MEDS: LASIX 20 MG IV (09:25)
[2024-01-30 10:37] VITALS: BP 114/87; BP 126/70; PULSE 98
--- NOTE | 2024-01-30 10:50 | W.DS.TRANS ---
DC Summary - Layout Designer
-
Discharge Instructions:
Discharge Diagnosis/Procedures R knee OA s/p R TKA w/ Dr Eisenberg 01/28/24
Diet 2 Gram Sodium,Restrict fluids to 48 oz
Activity As tolerated,With Walker
Driving Restrictions Not until seen by your Dr
Bathing Restrictions OK to Shower
Other Services PT
Wound Care Dressing to be removed 1 week post-surgery.
Specialty Instructions Weigh Daily
Instructions:
Stand-Alone Forms: Total Hip/Knee Replacement D/C
Changes to Home Medications: Yes
Discharge Medications:
DC Medications w/original date entered in [employer]
amiodarone 200 mg tablet (Pacerone) 200 mg PO BID Arrhythmia 06/04/20
estradiol 0.01% (0.1 mg/gram) vaginal cream 1 applic vaginal DIRECTED HORMONE 06/04/20
aripiprazole 2 mg tablet 2 mg PO DAILY Mental Health/Anxiety 03/29/22
cholecalciferol (vitamin D3) 25 mcg (1,000 unit) capsule (Vitamin D3) 50 mcg PO HS Supplement 03/29/22
atorvastatin 40 mg tablet 40 mg PO HS High Cholesterol 04/03/22
zolpidem 10 mg tablet (Ambien) 7.5 mg PO HS Sleep 04/03/22
amitriptyline 50 mg tablet 50 mg PO HS Mental Health/Anxiety 08/01/22
Prevagen 1 tab PO DAILY Supplement 08/15/22
aspirin 81 mg tablet,delayed release 81 mg PO DAILY #1 tab 08/15/22
solifenacin 5 mg tablet 10 mg PO DAILY OAB 08/15/22
Hair, Skin and Nails (biotin) 1 tab PO HS Supplement 06/25/23
apixaban 5 mg tablet (Eliquis) 5 mg PO BID Blood Clot Prevention/Tx 06/25/23
multivitamin 1 tab PO DAILY Supplement 06/25/23
metoprolol succinate 25 mg tablet,extended release 24 hr 50 mg PO BID Blood Pressure 07/05/23
magnesium 200 mg tablet 400 mg PO HS Supplement 01/22/24
Saccharomyces boulardii 250 mg capsule (Florastor) 250 mg PO BID #14 caps 01/28/24
apixaban 2.5 mg tablet (Eliquis) 2.5 mg PO ONCE@1999 #1 tab 01/28/24
cefadroxil 500 mg capsule 500 mg PO BID #14 caps 01/28/24
dexamethasone 4 mg tablet 4 mg PO Q12H Anti-inflammatory #6 tabs 01/28/24
docusate sodium 100 mg capsule 100 mg PO BID #30 caps 01/28/24
gabapentin 100 mg capsule 200 mg (2 x 100 mg) PO BID neuropathic pain #20 caps 01/28/24
mupirocin 2 % topical ointment 1 applic topical BID Infection 01/28/24
ondansetron HCl 4 mg tablet 4 mg PO Q6H PRN nausea and vomiting #30 tabs 01/28/24
sennosides 8.6 mg tablet (Senna Laxative) 17.2 mg (2 x 8.6 mg) PO BID #30 tabs 01/28/24
acetaminophen 300 mg-codeine 30 mg tablet 1 - 2 tab PO Q6H PRN moderate-severe pain #30 tabs 01/30/24
acetaminophen 325 mg tablet (Tylenol) 650 mg (2 x 325 mg) PO Q6H PRN mild pain #60 tabs 01/30/24
furosemide 20 mg tablet 40 mg (2 x 20 mg) PO BID Fluid retention/Swelling #1 tab 01/30/24
polyethylene glycol 3350 17 gram oral powder packet (Miralax) 17 g PO DAILY #14 ea 01/30/24
Home Medication Changes
Saccharomyces boulardii 250 mg capsule (Florastor) 250 mg PO BID #14 caps 01/28/24
apixaban 2.5 mg tablet (Eliquis) 2.5 mg PO ONCE@1999 #1 tab 01/28/24
cefadroxil 500 mg capsule 500 mg PO BID #14 caps 01/28/24
dexamethasone 4 mg tablet 4 mg PO Q12H Anti-inflammatory #6 tabs 01/28/24
docusate sodium 100 mg capsule 100 mg PO BID #30 caps 01/28/24
gabapentin 100 mg capsule 200 mg (2 x 100 mg) PO BID neuropathic pain #20 caps 01/28/24
mupirocin 2 % topical ointment 1 applic topical BID Infection 01/28/24
ondansetron HCl 4 mg tablet 4 mg PO Q6H PRN nausea and vomiting #30 tabs 01/28/24
sennosides 8.6 mg tablet (Senna Laxative) 17.2 mg (2 x 8.6 mg) PO BID #30 tabs 01/28/24
acetaminophen 300 mg-codeine 30 mg tablet 1 - 2 tab PO Q6H PRN moderate-severe pain #30 tabs 01/30/24
acetaminophen 325 mg tablet (Tylenol) 650 mg (2 x 325 mg) PO Q6H PRN mild pain #60 tabs 01/30/24
polyethylene glycol 3350 17 gram oral powder packet (Miralax) 17 g PO DAILY #14 ea 01/30/24
Pending Results: No
--- NOTE | 2024-01-30 11:16 | CM ---
Patient seen at bedside with .
IMM explained & signed. In chart.
Has outpatient PT scheduled with [facility] on Sunday
PLAN: Home, outpatient therapy set up
to transport
[2024-01-30] MEDS: PREVNAR 20 0.5 ML IM (11:54)
[2024-01-30] MEDS: FLUAD (65 yr+) 2024-2025 FORMULA 0.5 ML IM (11:55)
[2024-01-30 12:10] VITALS: BP 108/60
== END 2024-01-30 12:53 | disposition home or self-care (01) | DRG 470 ==
LOC: 2 SOUTH 06:51
PROVIDERS: Internal Medicine Cardiovascular Disease; ADMITTING PHYSICIAN Specialist; FAMILY PHYSICIAN Family Medicine; REFERRING PHYSICIAN Internal Medicine Cardiovascular Disease
PROC: 0SRC069 Replacement of Right Knee Joint with Oxidized Zirconium on Polyethylene Synthetic Substitute, Cemented, Open Approach (ICD-10-PCS; 2024-01-28)
DX: M17.11 Unilateral primary osteoarthritis, right knee (principal); I48.19 Other persistent atrial fibrillation; Z68.41 Body mass index [BMI] 40.0-44.9, adult; I13.0 Hypertensive heart and chronic kidney disease with heart failure and stage 1 through stage 4 chronic kidney disease, or unspecified chronic kidney disease; I50.32 Chronic diastolic (congestive) heart failure; D62 Acute posthemorrhagic anemia; E66.9 Obesity, unspecified; N18.30 Chronic kidney disease, stage 3 unspecified
CPT/HCPCS: 36415; 73560; 80053; 83036; 85014; 85018; 85027; 86803; 87070; 90662; 90677; 97110; 97116; 97162; 97166; 97530; 97535; C1713; C1776; G0008; G0009

== ENCOUNTER 2024-04-07 07:52 | Inpatient (IN) | payer MEDICARE, OTHER, SELFPAY ==
[2024-04-01 13:30] VITALS: BMI 36.1
[2024-04-01 14:08] LABS: Hematocrit 39.2 % (37.0-47.0); Hemoglobin 12.4 g/dL (12.0-16.0); Mean Corp Hgb Conc. 31.6 g/dL (33.0-37.0); Mean Corpuscular Hgb 29.3 pg (27.0-31.0); Mean Corpuscular Volume 92.7 fL (81.0-99.0); Mean Platelet Volume 10.5 fL (7.4-10.4); Platelet Count 261 10^3/uL (130-400); Red Blood Cell Count 4.23 10^6/uL (4.20-5.40); Red Cell Dist. Width 14.6 % (11.5-14.5); White Blood Cell Count 6.8 10^3/uL (4.8-10.8)
[2024-04-01 14:33] LABS: Glycohemoglobin (HgbA1c) 5.6 % (4.0-5.6)
[2024-04-01 14:34] LABS: ALT (SGPT) 17 U/L (0-35); AST (SGOT) 22 U/L (14-36); Albumin 3.8 g/dl (3.5-5.0); Alkaline Phosphatase 96 U/L (38-126); Blood Urea Nitrogen 16 mg/dl (7-17); Calcium 8.9 mg/dl (8.4-10.2); Carbon Dioxide 34 mmol/L (22-30); Chloride 96 mmol/L (98-107); Estimated Creatinine Clearance 66 ml/min; Glucose 99 mg/dl (70-99); Potassium 3.9 mmol/L (3.5-5.1); Sodium 138 mmol/L (135-145); Total Bilirubin 0.4 mg/dl (0.2-1.3); Total Protein 6.5 g/dl (6.3-8.2); eGFR > 60.00
[2024-04-02 14:45] VITALS: BMI 36.1
[2024-04-07] VITALS (18 sets, daily range): BP systolic 83–132; BP diastolic 48–96; PULSE 91–121; BMI 36.1
[2024-04-07] MEDS: TYLENOL 650 MG PO (08:35)
[2024-04-07] MEDS: NORMOSOL-R/PLASMALYTE-A 1000 IV ×2 (08:36→15:58)
[2024-04-07] MEDS: MOBIC 15 MG PO (08:36)
[2024-04-07] MEDS: TYLENOL #3 1 TABLET PO (12:31)
[2024-04-07] MEDS: NEURONTIN 200 MG PO ×2 (13:49→20:52)
[2024-04-07] MEDS: SUBLIMAZE 50 MCG IV (13:52)
--- NOTE | 2024-04-07 14:40 | W.PN.UPDATE ---
Update Note
Progress Note Update
L knee OA s/p L TKA w/ Dr Eisenberg 04/07/24
- s/p R TKA w/ Dr Eisenberg 01/28/24
DVT prophylaxis - Aspirin at 325 mg dosing x4 weeks, b/l venous foot pumps
HTN - + parameters - monitor BP
Orthostasis after R TKA - monitor orthostatic VS q8h
- BP meds w/ added SBP parameters
- IVF running
- Midodrine as indicated
Persistent atrial fibrillation, status post cardioversion x4, ablation 07/2023, and Watchman implantation 08/2022 - monitor on tele
- Continue Amiodarone, Metoprolol w/ SBP and HR parameters
- Previous Eliquis d/c due to Watchman. On ASA indefinitely.
Chronic diastolic heart failure, preserved ejection fraction - reduced hourly IVF rate to prevent fluid overload
- Monitor weights, I&Os
- 2 gram sodium diet
- Resume Lasix but w/ SBP parameters
KERI - continue CPAP HS
- IS
- Monitor O2
CKD stage 3 - minimize nephrotoxins
Hiatal hernia - add Pepcid HS
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
Ambulatory dysfunction with history of falls
- On fall precautions
- Monitor BP closely
Mild cognitive impairment - minimize opioids as able
Obesity, BMI 36.1 - would benefit from prophylactic Cefadroxil upon d/c
HLD
Mild mitral regurgitation
Chronic lymphedema with venous insufficiency
Diverticulosis
Hemorrhoids
Nonalcoholic steatohepatitis with history of elevated transaminases
Remote migraines
Interstitial cystitis with urinary frequency
Neurogenic bladder
Skin cancer, 11/2022, status post excision
ADHD
Anxiety
Depression
Claustrophobia
Osteopenia
History of recurrent COVID-19, last 11/30/2021
Insomnia
[2024-04-07] MEDS: PACERONE 200 MG PO ×2 (15:11→20:52)
[2024-04-07] MEDS: PACERONE PO (15:13)
[2024-04-07] MEDS: ProAmatine 2.5 MG PO ×2 (15:15→17:14)
[2024-04-07] MEDS: TYLENOL #3 2 TABLET PO (16:00)
--- NOTE | 2024-04-07 16:12 | RESPNOTE ---
04/07/24 1600 Pt is ordered for CPAP HS, she did not bring in her own unit and states she has not worn it 'for months'. I asked her if she would like to use one of ours and she said she would not wear it. Message sent to PA and RN aware.
--- NOTE | 2024-04-07 16:30 | PTCARENOTE ---
pt admitted to room 2117 at 1600 from PACU. pt arrived awake and alert. admission database and assessment completed as documented. pt oriented to room, bed controls and plan of care with verbalized understanding. telemetry placed and reading
Atrial fib 100's. pt c/o pain and medicated per MAY. care ongoing.
[2024-04-07] MEDS: ANCEF 5 IV (17:14)
[2024-04-07] MEDS: ASPIRIN 325 MG PO (17:14)
[2024-04-07] MEDS: COLACE 100 MG PO (20:52)
[2024-04-07] MEDS: SENOKOT 17.2 MG PO (20:52)
[2024-04-07] MEDS: TOPROL XL 100 MG PO (20:55)
[2024-04-07] MEDS: DECADRON 4 MG PO (20:55)
[2024-04-07] MEDS: BACTROBAN 2% OINTMENT 1 APPLIC NASAL (20:55)
[2024-04-07] MEDS: MELATONIN 5 MG PO (21:05)
[2024-04-07] MEDS: LIPITOR 40 MG PO (21:05)
[2024-04-07] MEDS: AMBIEN 7.5 MG PO (21:17)
[2024-04-07] MEDS: ELAVIL 50 MG PO (21:18)
[2024-04-07] MEDS: PEPCID 20 MG PO (21:38)
[2024-04-07] MEDS: VITAMIN D3 (cholecalciferol) 50 MCG PO (21:39)
[2024-04-08] VITALS (11 sets, daily range): BP systolic 91–116; BP diastolic 58–78; PULSE 67–119; O2SAT 94–99; BMI 34.2
[2024-04-08] MEDS: ANCEF 5 IV (01:23)
[2024-04-08] MEDS: TYLENOL #3 2 TABLET PO ×2 (06:13→13:08)
[2024-04-08] MEDS: SENOKOT 17.2 MG PO ×2 (09:28→21:11)
[2024-04-08] MEDS: ASPIRIN 325 MG PO (09:28)
[2024-04-08] MEDS: NEURONTIN 200 MG PO ×2 (09:28→21:10)
[2024-04-08] MEDS: ProAmatine 2.5 MG PO ×3 (09:28→21:11)
[2024-04-08] MEDS: VESICARE 10 MG PO (09:28)
[2024-04-08] MEDS: ABILIFY 2 MG PO (09:28)
[2024-04-08] MEDS: PACERONE 200 MG PO ×2 (09:29→21:11)
[2024-04-08] MEDS: BACTROBAN 2% OINTMENT 1 APPLIC NASAL ×2 (09:30→21:09)
[2024-04-08] MEDS: COLACE 100 MG PO ×2 (09:30→21:11)
[2024-04-08] MEDS: TOPROL XL PO ×2 (09:33→23:33)
[2024-04-08] MEDS: DECADRON 4 MG PO ×2 (09:34→21:11)
[2024-04-08] MEDS: TORADOL 15 MG IV (10:30)
[2024-04-08] MEDS: TOPROL XL 100 MG PO (10:33)
--- NOTE | 2024-04-08 11:32 | CM ---
Reviewed the chart notes and spoke with the patient at the bedside. Patient is s/p Left Total Knee Arthroplasty 2. The patient resides with her spouse in a one story home with a ramp to enter. The patient has in home a rolling walker, shower
chair, toilet rails, shower rails, bsc, and CPAP. The patient has had VN in the past, but could not recall the name of the agency. No SNF. The patient confirmed her pharmacy of choice is the [facility] [address] [facility] and PCP is Lakisha William. Patient
is to start outpatient PT at [facility] on . CM continues to be available to patient/family and is monitoring medical plan for needs at discharge.
Plan: Discharge to home when medically stable.
--- NOTE | 2024-04-08 11:57 | W.PN.ORTHO ---
Today's Communication / Plan
-
Await therapy recs.
Continue to monitor BP.
D/c later today if clinically stable.
Assessment
.
Distal Motor Intact: Yes
Dressing:
Scant incisional bleeding on ABDs. ABDs in place w/ supportive LILY hose stocking.
Assessment:
L knee OA s/p L TKA w/ Dr Eisenberg 04/07/24
- s/p R TKA w/ Dr Eisenberg 01/28/24
DVT prophylaxis - Aspirin at 325 mg dosing x4 weeks, b/l venous foot pumps
HTN - + parameters - BP currently stable
Orthostasis after R TKA - orthostatic VS q8h
- BP meds w/ added SBP parameters
- s/p IVF
- Midodrine as indicated
- Orthostatics stable w/ measures above
Persistent atrial fibrillation, status post cardioversion x4, ablation 07/2023, and Watchman implantation 08/2022 - a fib on tele w/ HRs in low 100s (stable)
- Continue Amiodarone, Metoprolol w/ SBP and HR parameters
- Previous Eliquis d/c due to Watchman. On ASA indefinitely.
Chronic diastolic heart failure, preserved ejection fraction - reduced hourly IVF rate to prevent fluid overload
- 2 gram sodium diet
- Resumed Lasix but w/ SBP parameters
- Daily weight, I&Os stable
KERI, non-compliant w/ CPAP - stressed CPAP compliance arrhythmia/CVA hx
- O2 currently stable on RA
CKD stage 3; BUN/Cr stable pre-op however - minimize nephrotoxins as able
Hiatal hernia - added Pepcid HS
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
Ambulatory dysfunction with history of falls
- On fall precautions
- BPs stable currently
Mild cognitive impairment - minimize opioids as able
Obesity, BMI 36.1 - would benefit from prophylactic Cefadroxil upon d/c
HLD
Mild mitral regurgitation
Chronic lymphedema with venous insufficiency
Diverticulosis
Hemorrhoids
Nonalcoholic steatohepatitis with history of elevated transaminases
Remote migraines
Interstitial cystitis with urinary frequency
Neurogenic bladder
Skin cancer, 11/2022, status post excision
ADHD
Anxiety
Depression
Claustrophobia
Osteopenia
History of recurrent COVID-19, last 11/30/2021
Insomnia
Plan
.
Surgery / Date: L TKA w/ Dr Eisenberg 04/07/24
DVT Prophylaxis: Aspirin
Activity:
Out of bed.
PT/OT
Subjective
.
.:
Patient examined early this AM w/o significant complaints.
Orthostatic VS stable w/ therapy.
L knee pain reported during therapy; however, pt was due for Tylenol #3.
Vital Signs and Labs
.
Vital Signs and Labs:
Lab Results
04/01/24 12:46
04/01/24 12:46
Temp Pulse Resp BP Pulse Ox
99.6 F 115 20 91/69 92
04/08/24 07:15 04/08/24 07:15 04/08/24 07:15 04/08/24 07:15 04/08/24 07:15
Non-invasive Hgb result: 12.6
Physical Exam
-
HEENT: No pallor, cyanosis, or jaundice. Throat clear.
NECK: Supple. No JVD.
RESPIRATORY: Lungs clear to auscultation.
CVS: Irregular irregular. �
ABDOMEN: Soft, non-tender. No distension. Obese.
EXTREMITIES: Expected post-surgical L knee edema. Strength equal, no calf pain with palpation/dorsiflexion. Calves soft.
MANIPULATOR OPERATOR: AOx3. No focal deficits. cook house laborer grossly intact
[2024-04-08] MEDS: NEURONTIN PO (19:32)
[2024-04-08] MEDS: LIPITOR 40 MG PO (21:10)
[2024-04-08] MEDS: ELAVIL 50 MG PO (21:11)
[2024-04-08] MEDS: VITAMIN D3 (cholecalciferol) 50 MCG PO (21:12)
[2024-04-08] MEDS: PEPCID 20 MG PO (21:12)
[2024-04-08] MEDS: MELATONIN 5 MG PO (21:16)
[2024-04-08] MEDS: AMBIEN 7.5 MG PO (21:16)
[2024-04-09 02:30] VITALS: BP 129/90
[2024-04-09 05:58] VITALS: BMI 36.7
[2024-04-09 06:46] LABS: Hematocrit 28.8 % (37.0-47.0); Hemoglobin 9.5 g/dL (12.0-16.0); Mean Corpuscular Hgb 29.1 pg (27.0-31.0); Mean Corpuscular Volume 88.1 fL (81.0-99.0); Mean Platelet Volume 10.3 fL (7.4-10.4); Platelet Count 194 10^3/uL (130-400); Red Blood Cell Count 3.27 10^6/uL (4.20-5.40); Red Cell Dist. Width 14.1 % (11.5-14.5); White Blood Cell Count 10.8 10^3/uL (4.8-10.8)
[2024-04-09 07:11] LABS: Blood Urea Nitrogen 13 mg/dl (7-17); Calcium 8.3 mg/dl (8.4-10.2); Carbon Dioxide 30 mmol/L (22-30); Chloride 93 mmol/L (98-107); Estimated Creatinine Clearance 86 ml/min; Glucose 123 mg/dl (70-99); Magnesium 2.3 mg/dl (1.6-2.3); Potassium 3.8 mmol/L (3.5-5.1); Sodium 132 mmol/L (135-145); eGFR > 60.00
[2024-04-09 07:50] VITALS: BP 90/57
[2024-04-09] MEDS: TYLENOL #3 1 TABLET PO ×2 (09:09→13:06)
[2024-04-09] MEDS: VESICARE 10 MG PO (09:10)
[2024-04-09] MEDS: NEURONTIN 200 MG PO (09:10)
[2024-04-09] MEDS: SENOKOT 17.2 MG PO (09:10)
[2024-04-09] MEDS: ABILIFY 2 MG PO (09:10)
[2024-04-09] MEDS: MOBIC 7.5 MG PO (09:10)
[2024-04-09] MEDS: ProAmatine 2.5 MG PO ×2 (09:11→13:06)
[2024-04-09] MEDS: COLACE 100 MG PO (09:11)
[2024-04-09] MEDS: PACERONE 200 MG PO (09:11)
[2024-04-09] MEDS: DECADRON 4 MG PO (09:11)
[2024-04-09] MEDS: TOPROL XL PO ×2 (09:11→09:17)
[2024-04-09] MEDS: ASPIRIN 325 MG PO (09:11)
[2024-04-09 09:30] VITALS: BMI 34.7
--- NOTE | 2024-04-09 09:59 | W.PN.ORTHO ---
Today's Communication / Plan
-
Await further PT/OT recs.
Continue to monitor BP/orthostatics while inpatient.
D/c today if remaining clinically stable.
Assessment
.
Distal Motor Intact: Yes
Dressing:
Scant old incisional bleeding on ABDs w/ LILY hose - unchanged since yesterday.
Assessment:
L knee OA s/p L TKA w/ Dr Eisenberg 04/07/24
- s/p R TKA w/ Dr Eisenberg 01/28/24
DVT prophylaxis - Aspirin at 325 mg dosing x4 weeks, b/l venous foot pumps
Drowsiness, fogginess POD 1 - improved w/ adjustment of Tylenol w/ Codeine from 1-2 to 1 tab q4hprn
- Pt highly sensative to opioids
HTN - + parameters - hypotensive but reportedly asymptomatic this AM
- Encouraged oral hydration
Orthostasis after R TKA - orthostatic VS q8h
- BP meds w/ added SBP parameters
- s/p IVF
- Midodrine as indicated
- Orthostatics stable w/ measures above
Persistent atrial fibrillation, status post cardioversion x4, ablation 07/2023, and Watchman implantation 08/2022 - a fib on tele w/ HRs in low 100s (stable)
- Continue Amiodarone, Metoprolol w/ SBP and HR parameters
- Previous Eliquis d/c due to Watchman. On ASA indefinitely.
Chronic diastolic heart failure, preserved ejection fraction - reduced hourly IVF rate to prevent fluid overload
- 2 gram sodium diet
- Resumed Lasix but w/ SBP parameters
- Corrected daily weight (see documentation), I&Os stable
KERI, non-compliant w/ CPAP - stressed CPAP compliance arrhythmia/CVA hx
- O2 currently stable on RA
CKD stage 3; BUN/Cr stable pre- and post-op however - will add low dose Meloxicam x1 week to accommodate for pain
Hiatal hernia - added Pepcid HS
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
Ambulatory dysfunction with history of falls
- On fall precautions
- BPs stable currently
Mild cognitive impairment - minimize opioids as able
Obesity, BMI 36.1 - would benefit from prophylactic Cefadroxil upon d/c
HLD
Mild mitral regurgitation
Chronic lymphedema with venous insufficiency
Diverticulosis
Hemorrhoids
Nonalcoholic steatohepatitis with history of elevated transaminases
Remote migraines
Interstitial cystitis with urinary frequency
Neurogenic bladder
Skin cancer, 11/2022, status post excision
ADHD
Anxiety
Depression
Claustrophobia
Osteopenia
History of recurrent COVID-19, last 11/30/2021
Insomnia
Mild hyponatremia - asymptomatic
Plan
.
Surgery / Date: L TKA w/ Dr Eisenberg 04/07/24
DVT Prophylaxis: Aspirin
Activity:
Out of bed.
PT/OT
Discharge Plan: Home w/ Outpatient PT (vs home w/ VN)
Subjective
.
.:
Patient examined resting in bed this AM.
6/10 L knee pain but was getting pain meds.
Drowsiness, fogginess reported yesterday - pain meds adjusted further.
Vital Signs and Labs
.
Vital Signs and Labs:
Lab Results
04/09/24 05:45
04/09/24 05:45
Temp Pulse Resp BP Pulse Ox
98.5 F 113 18 90/57 91
04/09/24 07:50 04/09/24 07:50 04/09/24 07:50 04/09/24 07:50 04/09/24 07:50
Non-invasive Hgb result: 12.6
Physical Exam
-
HEENT: No pallor, cyanosis, or jaundice. Throat clear.
NECK: Supple. No JVD.
RESPIRATORY: Lungs clear to auscultation.
CVS: Irregular irregular.
ABDOMEN: Soft, non-tender. No distension. Obese.
EXTREMITIES: Expected post-surgical L knee edema. Strength equal, no calf pain with palpation/dorsiflexion. Calves soft.
CONSTRUCTION ADMINISTRATOR: AOx3. No focal deficits. care management assistant grossly intact
[2024-04-09] MEDS: DULCOLAX 5 MG PO (10:00)
[2024-04-09 10:36] VITALS: BP 107/70; PULSE 111; O2SAT 97
[2024-04-09 11:03] VITALS: BP 100/67
--- NOTE | 2024-04-09 12:02 | W.DS.TRANS ---
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
-
Discharge Instructions:
Discharge Diagnosis/Procedures L knee OA s/p L TKA w/ Dr Eisenberg 04/07/24
Diet Low Sodium,Low Cholesterol
Activity As tolerated,With Walker
Driving Restrictions Not until seen by your Dr
Bathing Restrictions After seen by .
Other Services PT
Wound Care Leave surgical dressing on until seen by surgeon
's office for follow--up.
Abimbola to be removed at 2 week follow-up
appointment with surgeon's office.
Specialty Instructions Weigh Daily
Instructions:
Stand-Alone Forms: Total Hip/Knee Replacement D/C
Changes to Home Medications: Yes
Discharge Medications:
DC Medications w/original date entered in [employer]
amiodarone 200 mg tablet (Pacerone) 200 mg PO BID Arrhythmia 06/04/20
aripiprazole 2 mg tablet 2 mg PO DAILY Mental Health/Anxiety 03/29/22
cholecalciferol (vitamin D3) 25 mcg (1,000 unit) capsule (Vitamin D3) 50 mcg PO HS Supplement 03/29/22
atorvastatin 40 mg tablet 40 mg PO HS High Cholesterol 04/03/22
zolpidem 10 mg tablet (Ambien) 7.5 mg PO HS Sleep 04/03/22
amitriptyline 50 mg tablet 50 mg PO HS Mental Health/Anxiety 08/01/22
Prevagen 1 tab PO DAILY Supplement 08/15/22
solifenacin 5 mg tablet 10 mg PO DAILY OAB 08/15/22
multivitamin 1 tab PO DAILY Supplement 06/25/23
magnesium 200 mg tablet 400 mg PO HS Supplement 01/22/24
biotin 10,000 mcg chewable tablet (Hair, Skin and Nails (biotin)) 10,000 mcg PO HS Supplement 03/31/24
mupirocin 2 % topical ointment 1 applic topical BID infection prevention #1 tube 04/01/24
Saccharomyces boulardii 250 mg capsule (Florastor) 250 mg PO BID #14 caps 04/08/24
acetaminophen 300 mg-codeine 30 mg tablet 1 - 2 tab PO Q6H PRN moderate-severe pain #30 tabs 04/08/24
acetaminophen 325 mg tablet 650 mg (2 x 325 mg) PO Q4HPRN PRN mild pain #60 tabs 04/08/24
aspirin 325 mg tablet 325 mg PO DAILY #30 tabs 04/08/24
cefadroxil 500 mg capsule 500 mg PO BID #14 caps 04/08/24
dexamethasone 4 mg tablet 4 mg PO BID Anti-inflammatory #5 tabs 04/08/24
docusate sodium 100 mg capsule 100 mg PO BID #30 caps 04/08/24
famotidine 20 mg tablet 20 mg PO HS #30 tabs 04/08/24
furosemide 40 mg tablet 40 mg PO DAILY Fluid Retention/Swelling #0 tabs 04/08/24
gabapentin 100 mg capsule 200 mg (2 x 100 mg) PO BID neuropathic pain #14 caps 04/08/24
melatonin 10 mg tablet 10 mg PO HS Sleep #0 tabs 04/08/24
meloxicam 7.5 mg tablet 7.5 mg PO DAILY PRN breakthrough pain #7 tabs 04/08/24
ondansetron HCl 4 mg tablet 4 mg PO Q6H PRN nausea and vomiting #30 tabs 04/08/24
sennosides 8.6 mg tablet (Neva-giorgi) 17.2 mg (2 x 8.6 mg) PO BID #30 tabs 04/08/24
magnesium hydroxide 400 mg/5 mL oral suspension (Dulcolax (magnesium hydroxide)) 5 ml PO DAILY PRN constipation #355 mL 04/09/24
metoprolol succinate 25 mg tablet,extended release 24 hr 100 mg (4 x 25 mg) PO BID Blood Pressure #1 tab 04/09/24
Home Medication Changes
Saccharomyces boulardii 250 mg capsule (Florastor) 250 mg PO BID #14 caps 04/08/24
acetaminophen 300 mg-codeine 30 mg tablet 1 - 2 tab PO Q6H PRN moderate-severe pain #30 tabs 04/08/24
acetaminophen 325 mg tablet 650 mg (2 x 325 mg) PO Q4HPRN PRN mild pain #60 tabs 04/08/24
aspirin 325 mg tablet 325 mg PO DAILY #30 tabs 04/08/24
cefadroxil 500 mg capsule 500 mg PO BID #14 caps 04/08/24
dexamethasone 4 mg tablet 4 mg PO BID Anti-inflammatory #5 tabs 04/08/24
docusate sodium 100 mg capsule 100 mg PO BID #30 caps 04/08/24
famotidine 20 mg tablet 20 mg PO HS #30 tabs 04/08/24
gabapentin 100 mg capsule 200 mg (2 x 100 mg) PO BID neuropathic pain #14 caps 04/08/24
melatonin 10 mg tablet 10 mg PO HS Sleep #0 tabs 04/08/24
meloxicam 7.5 mg tablet 7.5 mg PO DAILY PRN breakthrough pain #7 tabs 04/08/24
ondansetron HCl 4 mg tablet 4 mg PO Q6H PRN nausea and vomiting #30 tabs 04/08/24
sennosides 8.6 mg tablet (Neva-giorgi) 17.2 mg (2 x 8.6 mg) PO BID #30 tabs 04/08/24
magnesium hydroxide 400 mg/5 mL oral suspension (Dulcolax (magnesium hydroxide)) 5 ml PO DAILY PRN constipation #355 mL 04/09/24
Pending Results: No
[2024-04-09 13:10] VITALS: BP 113/69
--- NOTE | 2024-04-09 13:14 | CM ---
JESSE met with Idania to confirm discharge plan. She will return home and resume outpatient therapy at [facility] which she utilized when she had her Right TKA.
Plan: Discharge to home with outpatient therapy.
== END 2024-04-09 15:50 | disposition home or self-care (01) | DRG 470 ==
LOC: 2 SOUTH 07:52
PROVIDERS: Nurse Practitioner Family; ADMITTING PHYSICIAN Specialist; FAMILY PHYSICIAN Family Medicine
PROC: 0SRD0J9 Replacement of Left Knee Joint with Synthetic Substitute, Cemented, Open Approach (ICD-10-PCS; 2024-04-07)
DX: M17.12 Unilateral primary osteoarthritis, left knee (principal); I48.19 Other persistent atrial fibrillation; I69.354 Hemiplegia and hemiparesis following cerebral infarction affecting left non-dominant side; I50.32 Chronic diastolic (congestive) heart failure; I13.0 Hypertensive heart and chronic kidney disease with heart failure and stage 1 through stage 4 chronic kidney disease, or unspecified chronic kidney disease; R47.01 Aphasia; E66.9 Obesity, unspecified; Z68.34 Body mass index [BMI] 34.0-34.9, adult; Z79.01 Long term (current) use of anticoagulants; F32.A Depression, unspecified; F40.240 Claustrophobia; K59.1 Functional diarrhea; F90.9 Attention-deficit hyperactivity disorder, unspecified type; N30.10 Interstitial cystitis (chronic) without hematuria; N31.9 Neuromuscular dysfunction of bladder, unspecified; M85.80 Other specified disorders of bone density and structure, unspecified site; I89.0 Lymphedema, not elsewhere classified; N18.30 Chronic kidney disease, stage 3 unspecified; E78.5 Hyperlipidemia, unspecified; I87.2 Venous insufficiency (chronic) (peripheral); G47.33 Obstructive sleep apnea (adult) (pediatric); Z91.81 History of falling; G47.00 Insomnia, unspecified; Z90.710 Acquired absence of both cervix and uterus; Z91.199 Patient's noncompliance with other medical treatment and regimen due to unspecified reason; Z95.818 Presence of other cardiac implants and grafts; Z96.651 Presence of right artificial knee joint; K46.9 Unspecified abdominal hernia without obstruction or gangrene; K57.90 Diverticulosis of intestine, part unspecified, without perforation or abscess without bleeding; I34.0 Nonrheumatic mitral (valve) insufficiency; K75.81 Nonalcoholic steatohepatitis (NASH); Z86.16 Personal history of COVID-19
CPT/HCPCS: 36415; 73560; 80048; 80053; 83036; 83735; 85027; 87070; 97110; 97116; 97162; 97166; 97530; 97535; C1713; C1776

== ENCOUNTER → 2024-11-07 09:22 | Outpatient (REF) | payer MEDICARE, OTHER, SELFPAY ==
[2024-11-07 11:50] LABS: INR 1.21; PT 15.6 Sec (11.4-14.6)
[2024-11-07 11:59] LABS: ALT (SGPT) 45 U/L (0-35); AST (SGOT) 35 U/L (14-36); Albumin 3.8 g/dl (3.5-5.0); Alkaline Phosphatase 112 U/L (38-126); Blood Urea Nitrogen 18 mg/dl (7-17); Calcium 9.0 mg/dl (8.4-10.2); Carbon Dioxide 32 mmol/L (22-30); Chloride 101 mmol/L (98-107); Glucose 98 mg/dl (70-99); Magnesium 2.0 mg/dl (1.6-2.3); Potassium 4.0 mmol/L (3.5-5.1); Sodium 137 mmol/L (135-145); Total Protein 6.5 g/dl (6.3-8.2); eGFR > 60.00
== END ==
LOC: SDSPAT 09:22
PROVIDERS: ATTENDING PHYSICIAN Internal Medicine Cardiovascular Disease; FAMILY PHYSICIAN Family Medicine; OTHER PHYSICIAN Internal Medicine Cardiovascular Disease
DX: I48.19 Other persistent atrial fibrillation (principal)
CPT/HCPCS: 36415; 80053; 83735; 85610; 86850; 86900; 86901; 93005

== ENCOUNTER 2024-11-17 06:51 | Day surgery (SDC) | payer MEDICARE, OTHER, SELFPAY ==
--- NOTE | 2024-11-10 13:07 | HPS.HSE ---
Family Physician
-
Family Physician: NO INTERVIEW UNKNOWN
Chief Complaint
-
Persistent atrial fibrillation. Atypical atrial flutter.
History of Present Illness
The patient is a 69 year old female presenting today for persistent atrial fibrillation and atypical atrial flutter. She reports a history of minor chest discomfort, fatigue, and lightheadedness associated with her atrial arrhythmias. She
has previously undergone 4 cardioversions and pulmonary vein isolation in July 2023. She is on current pharmacological therapy with Amiodarone and Metoprolol Succinate. Oral anticoagulation was discontinued months after her Watchman implant in August
2022. She notes that her current symptoms associated with her atrial arrhythmias greatly interfere with her activities of daily living and overall impact her quality of life. She is interested in pursuing with pulmonary vein isolation and atrial
flutter ablation for more definitive arrhythmia management. In preparation for her procedure, she has been restarted on Eliquis 1 month prior. She will continue this medication for 2 months post-ablation. She will also undergo a transesophageal
echocardiogram prior to definitively rule out a left atrial appendage thrombus. She denies any current complaints today such as chest pain, shortness of breath at rest, nausea, vomiting, diarrhea, dizziness, cough, sore throat, or fever.
Medical History
Past Medical History
Past Medical History: Reports Other
Additional Past Medical History:
1. Persistent atrial fibrillation and atypical atrial flutter, status post cardioversion x4, pulmonary vein isolation 07/2023, and Watchman implant 08/2022; pharmacological therapy with Amiodarone and Metoprolol Succinate, oral anticoagulation with
Eliquis.
2. Hypertension.
3. Hyperlipidemia.
4. Chronic diastolic heart failure, preserved ejection fraction.
5. Chronic lymphedema with venous insufficiency.
6. Obstructive sleep apnea, compliant with CPAP.
7. Chronic kidney disease stage 3.
8. Hiatal hernia.
9. Diverticulosis.
10. Hemorrhoids.
11. Nonalcoholic steatohepatitis with mildly elevated transaminases.
12. 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
13. Remote migraines.
14. Mild cognitive impairment.
15. Ambulatory dysfunction with history of falls.
16. Osteoarthritis, status post bilateral total knee arthroplasty.
17. Interstitial cystitis with urinary frequency.
18. Neurogenic bladder.
19. Skin cancer, 11/2022, status post excision.
20. TMJ dysfunction.
21. 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
22. ADHD.
23. Anxiety.
24. Depression.
25. Claustrophobia.
26. Osteopenia.
27. Alopecia.
28. Insomnia.
29. Obesity, BMI 39.6.
Past Surgical History: Reports Other
Additional Past Surgical History:
1. Pulmonary vein isolation.
2. Watchman implantation.
3. Cardioversion x4.
4. Transesophageal echocardiogram x2.
5. Left total knee arthroplasty.
6. Right total knee arthroplasty.
7. Right knee arthroscopy.
8. Total abdominal hysterectomy and bilateral salpingo-oophorectomy.
9. Cholecystectomy.
10. .
11. Cysto-hydrodistention with bladder installation.
12. Breast augmentation.
13. Colonoscopy.
Social History
Tobacco: Non-smoker
Alcohol: None
Personal:
Living: Other (She lives with her in a ranch style home. )
Family History
Family History: Not pertinent
Allergies / Home Medications
Allergy/Medication List:
MEDICATIONS:
1. Amiodarone 200 mg p.o. twice a day.
2. Amitriptyline 50 mg p.o. at bedtime.
3. Aripiprazole 2 mg p.o. daily.
4. Eliquis 5 mg p.o. twice a day.
5. Atorvastatin 40 mg p.o. at bedtime.
6. Cholecalciferol 250 mcg p.o. daily.
7. Prozac 10 mg p.o. daily.
8. Furosemide 40 mg p.o. daily.
9. Furosemide 40 mg p.o. daily as needed.
10. Magnesium oxide 500 mg p.o. at bedtime.
11. Melatonin 20 mg p.o. at bedtime.
12. Iron 28 mg p.o. Sundays, Wednesdays, and Fridays.
13. Metoprolol Succinate 100 mg p.o. twice a day.
14. Multivitamin 1 tablet p.o. daily.
15. Solifenacin 10 mg p.o. daily.
16. Zolpidem 10 mg p.o. at bedtime.
ALLERGIES: Nitrofurantoin. Sulfa. Oxycodone. Adhesive.
Review of Systems
-
A 12 point ROS was completed and negative except as noted: Yes
Physical Exam
Vital Signs
Blood pressure 135/71. Heart rate 98. Respirations 18. Pulse ox 95% on room air.
Height 5 feet, 2.5 inches. Weight 99.9 kg. BMI 39.6.
Physical Exam
General: Well Developed, Well Nourished and No Apparent Distress
HEENT: NormoCephalic, Moist mucous membranes, Atraumatic and PERRLA
Respiratory: Clear
Cardiac: Irregular Rhythm
GI: Soft, Non Tender, Non Distended and Other (Obese. )
Musculoskeletal: Edema, Left Lower Extremity, Edema, Right Lower Extremity and Other (The patient ambulates with a single point cane. Mild right sided weakness noted.)
Skin: Warm and Dry
Neuro: AO x 3 and Other (Expressive aphasia noted.)
Laboratory Results
-
DIAGNOSTIC STUDIES as of 11/07/2024: PT 15.6. INR 1.21. Sodium 137. Potassium 4.0. BUN 18. Creatinine 0.9. Glucose 98. Calcium 9.0. Magnesium 2.0. AST 35. ALT 45. Albumin 3.8. Type and screen A positive.
EKG 11/07/2024: Atrial flutter with variable AV block. Can not rule out anterior infarct, age undetermined.
Transesophageal echocardiogram 10/04/2022: Normal left ventricular systolic function. Left ventricular ejection fraction is 55%. No significant valve abnormalities. Normal 24 mm Watchman FLX.
Impression/Plan
-
IMPRESSION/PLAN:
1. Persistent atrial fibrillation and atypical atrial flutter: The patient is in need of pulmonary vein isolation and an atrial flutter ablation. Prior to undergoing this, however, she will proceed with a transesophageal echocardiogram on 11/17/[address] Anum Kumar to definitively rule out a left atrial appendage thrombus. The benefits and risks of the procedure have been explained to the patient. The patient understands these risks and wishes to proceed. She is aware to continue her
Eliquis uninterrupted prior to her procedure.
2. CBC testing: The patient will under a CBC prior to her procedures. Should her results be relatively stable, she can proceed as planned.
== END 2024-11-17 09:44 | disposition home or self-care (01) ==
LOC: CATH 06:51
PROVIDERS: ATTENDING PHYSICIAN Internal Medicine Cardiovascular Disease; FAMILY PHYSICIAN Family Medicine; OTHER PHYSICIAN Internal Medicine Cardiovascular Disease
DX: I48.4 Atypical atrial flutter (principal); I08.3 Combined rheumatic disorders of mitral, aortic and tricuspid valves; Q24.8 Other specified congenital malformations of heart; E66.9 Obesity, unspecified; E78.5 Hyperlipidemia, unspecified; F32.A Depression, unspecified; F40.240 Claustrophobia; G47.33 Obstructive sleep apnea (adult) (pediatric); I13.0 Hypertensive heart and chronic kidney disease with heart failure and stage 1 through stage 4 chronic kidney disease, or unspecified chronic kidney disease; I48.19 Other persistent atrial fibrillation; I50.32 Chronic diastolic (congestive) heart failure; I87.2 Venous insufficiency (chronic) (peripheral); K75.81 Nonalcoholic steatohepatitis (NASH); M19.90 Unspecified osteoarthritis, unspecified site; M85.80 Other specified disorders of bone density and structure, unspecified site; N18.30 Chronic kidney disease, stage 3 unspecified; N30.10 Interstitial cystitis (chronic) without hematuria; N31.9 Neuromuscular dysfunction of bladder, unspecified; I69.320 Aphasia following cerebral infarction; I69.354 Hemiplegia and hemiparesis following cerebral infarction affecting left non-dominant side; Z68.39 Body mass index [BMI] 39.0-39.9, adult; Z79.01 Long term (current) use of anticoagulants; Z79.899 Other long term (current) drug therapy; Z85.828 Personal history of other malignant neoplasm of skin; Z87.19 Personal history of other diseases of the digestive system; Z88.1 Allergy status to other antibiotic agents; Z88.2 Allergy status to sulfonamides; Z88.5 Allergy status to narcotic agent; Z91.048 Other nonmedicinal substance allergy status; Z90.49 Acquired absence of other specified parts of digestive tract; Z90.710 Acquired absence of both cervix and uterus; Z90.722 Acquired absence of ovaries, bilateral; Z91.81 History of falling; Z96.653 Presence of artificial knee joint, bilateral
CPT/HCPCS: 93312; 93320; 93325

== ENCOUNTER 2024-11-26 06:05 | Day surgery (SDC) | payer MEDICARE, OTHER, SELFPAY ==
[2024-11-07 11:03] VITALS: BMI 39.7
--- NOTE | 2024-11-07 12:14 | HPS.HSE ---
Family Physician
-
Family Physician: NO INTERVIEW UNKNOWN
Chief Complaint
-
Persistent atrial fibrillation. Atypical atrial flutter.
History of Present Illness
The patient is a 69 year old female presenting today for persistent atrial fibrillation and atypical atrial flutter. She reports a history of minor chest discomfort, fatigue, and lightheadedness associated with her atrial arrhythmias. She
has previously undergone 4 cardioversions and pulmonary vein isolation in July 2023. She is on current pharmacological therapy with Amiodarone and Metoprolol Succinate. Oral anticoagulation was discontinued months after her Watchman implant in August
2022. She notes that her current symptoms associated with her atrial arrhythmias greatly interfere with her activities of daily living and overall impact her quality of life. She is interested in pursuing with pulmonary vein isolation and atrial
flutter ablation for more definitive arrhythmia management. In preparation for these procedures, she has been restarted on Eliquis 1 month prior. She will continue this medication for 2 months post-ablation. She denies any current complaints today
such as chest pain, shortness of breath at rest, nausea, vomiting, diarrhea, dizziness, cough, sore throat, or fever.
Medical History
Past Medical History
Past Medical History: Reports Other
Additional Past Medical History:
1. Persistent atrial fibrillation and atypical atrial flutter, status post cardioversion x4, pulmonary vein isolation 07/2023, and Watchman implant 08/2022; pharmacological therapy with Amiodarone and Metoprolol Succinate, oral anticoagulation with
Eliquis.
2. Hypertension.
3. Hyperlipidemia.
4. Chronic diastolic heart failure, preserved ejection fraction.
5. Chronic lymphedema with venous insufficiency.
6. Obstructive sleep apnea, compliant with CPAP.
7. Chronic kidney disease stage 3.
8. Hiatal hernia.
9. Diverticulosis.
10. Hemorrhoids.
11. Nonalcoholic steatohepatitis with mildly elevated transaminases.
12. 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
13. Remote migraines.
14. Mild cognitive impairment.
15. Ambulatory dysfunction with history of falls.
16. Osteoarthritis, status post bilateral total knee arthroplasty.
17. Interstitial cystitis with urinary frequency.
18. Neurogenic bladder.
19. Skin cancer, 11/2022, status post excision.
20. TMJ dysfunction.
21. 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
22. ADHD.
23. Anxiety.
24. Depression.
25. Claustrophobia.
26. Osteopenia.
27. Alopecia.
28. Insomnia.
29. Obesity, BMI 39.6.
Past Surgical History: Reports Other
Additional Past Surgical History:
1. Pulmonary vein isolation.
2. Watchman implantation.
3. Cardioversion x4.
4. Transesophageal echocardiogram x2.
5. Left total knee arthroplasty.
6. Right total knee arthroplasty.
7. Right knee arthroscopy.
8. Total abdominal hysterectomy and bilateral salpingo-oophorectomy.
9. Cholecystectomy.
10. .
11. Cysto-hydrodistention with bladder installation.
12. Breast augmentation.
13. Colonoscopy.
Social History
Tobacco: Non-smoker
Alcohol: None
Personal:
Living: Other (She lives with her in a ranch style home. )
Family History
Family History: Not pertinent
Allergies / Home Medications
Allergy/Medication List:
MEDICATIONS:
1. Amiodarone 200 mg p.o. twice a day.
2. Amitriptyline 50 mg p.o. at bedtime.
3. Aripiprazole 2 mg p.o. daily.
4. Eliquis 5 mg p.o. twice a day.
5. Atorvastatin 40 mg p.o. at bedtime.
6. Cholecalciferol 250 mcg p.o. daily.
7. Prozac 10 mg p.o. daily.
8. Furosemide 40 mg p.o. daily.
9. Furosemide 40 mg p.o. daily as needed.
10. Magnesium oxide 500 mg p.o. at bedtime.
11. Melatonin 20 mg p.o. at bedtime.
12. Iron 28 mg p.o. Sundays, Wednesdays, and Fridays.
13. Metoprolol Succinate 100 mg p.o. twice a day.
14. Multivitamin 1 tablet p.o. daily.
15. Solifenacin 10 mg p.o. daily.
16. Zolpidem 10 mg p.o. at bedtime.
ALLERGIES: Nitrofurantoin. Sulfa. Oxycodone. Adhesive.
Review of Systems
-
A 12 point ROS was completed and negative except as noted: Yes
Physical Exam
Vital Signs
Blood pressure 135/71. Heart rate 98. Respirations 18. Pulse ox 95% on room air.
Height 5 feet, 2.5 inches. Weight 99.9 kg. BMI 39.6.
Physical Exam
General: Well Developed, Well Nourished and No Apparent Distress
HEENT: NormoCephalic, Moist mucous membranes, Atraumatic and PERRLA
Respiratory: Clear
Cardiac: Irregular Rhythm
GI: Soft, Non Tender, Non Distended and Other (Obese. )
Musculoskeletal: Edema, Left Lower Extremity, Edema, Right Lower Extremity and Other (The patient ambulates with a single point cane. Mild right sided weakness noted. )
Skin: Warm and Dry
Neuro: AO x 3 and Other (Expressive aphasia noted. )
Laboratory Results
-
DIAGNOSTIC STUDIES as of 11/07/2024: PT 15.6. INR 1.21. Sodium 137. Potassium 4.0. BUN 18. Creatinine 0.9. Glucose 98. Calcium 9.0. Magnesium 2.0. AST 35. ALT 45. Albumin 3.8. Type and screen A positive.
EKG 11/07/2024: Atrial flutter with variable AV block. Can not rule out anterior infarct, age undetermined.
Transesophageal echocardiogram 10/04/2022: Normal left ventricular systolic function. Left ventricular ejection fraction is 55%. No significant valve abnormalities. Normal 24 mm Watchman FLX.
Impression/Plan
-
IMPRESSION/PLAN:
1. Persistent atrial fibrillation and atypical atrial flutter: The patient is in need of pulmonary vein isolation and atrial flutter ablation with Dr. Shawn Florez on 11/26/2024. The benefits and risks of the procedure have been explained to the
patient. The patient understands these risks and wishes to proceed. Given she has been newly started on Eliquis in preparation for this procedure, she will undergo a pre-procedural transesophageal echocardiogram first to definitively rule out a left
atrial appendage thrombus. This is scheduled for 11/17/[address] Anum Kumar. She is aware to continue her Eliquis uninterrupted prior to her procedure. She will take no medications the morning of her ablation.
2. CBC testing: The patient will under a CBC prior to her procedures. Should her results be relatively stable, she can proceed as planned.
[2024-11-26] VITALS (12 sets, daily range): BP systolic 105–125; BP diastolic 52–111
[2024-11-26] MEDS: TYLENOL 1000 MG PO (07:15)
[2024-11-26 08:44] LABS: ACT-LR - POC 311 Seconds (116-155)
[2024-11-26 09:00] LABS: ACT-LR - POC 274 Seconds (116-155)
[2024-11-26 09:18] LABS: ACT-LR - POC 289 Seconds (116-155)
--- NOTE | 2024-11-26 10:01 | ITS.CL.ABL ---
Filling Station Attendant - Ablation
Ablation
Procedure Report:
ELECTROPHYSIOLOGY ABLATION STUDY
DATE:: November 26, 2024�����������������������������REFERRING: Dr. Enrike Cabrera
INDICATION: Persistent supraventricular tachycardia in the form of atypical atrial flutter. Prior cryoballoon in July 2023 and watchman implantation now presents with a flutter waves which is positive across precordium and inferiorly directed
suggesting left atrial flutter.
HISTORY: See H and P.� As above
ANTIARRHYTHMIC DRUG: Amiodarone
PRE-PROCEDURE JUSTICE: No leak seen on intracardiac ultrasound from the Watchman
PRESENTING RHYTHM: Left atrial posterior wall atrial flutter 310 ms
'TIME-OUT':��called and confirmed.
SEDATION/ANESTHESIA:��provided via the anesthesia department using general anesthesia (LMA).
INTRAVENOUS/ARTERIAL ACCESS:
Right femoral venous - 8Fr
Left femoral venous - 8 Fr, 6 Fr
Ultrasound guidance for bilateral femoral vein access was utilized by me to obtain access with demonstration of normal anatomy
CHADS-VASC Score:
HAS-Bled Score
PROCEDURE:
1.��A decapolar CS catheter was placed within the CS for mapping and pacing.��This was also used as the reference catheter for the 3-D map. At baseline CS activation was eccentric. Distal to proximal CS activation cycle length 310 ms entrainment
demonstrating that the right atrium was out of the circuit. Transseptal puncture was performed as below which demonstrated a left atrial posterior wall macro reentrant atrial flutter 310 ms by activation mapping and entrainment mapping. The mitral
isthmus was activating passively with a 30 to 50 ms PPI greater than tachycardia cycle length and from the coronary sinus catheter and 90 ms PPI greater than tachycardia cycle length. The interatrial septum was also out of the circuit. Multiple
entrainment points from the floor posterior wall proper and roof of the left atrium demonstrated PPI equal to tachycardia cycle length. The pulmonary veins were isolated baseline except for the septal aspect of the right superior pulmonary vein
which was out of the circuit. Additionally the electroanatomic voltage map demonstrated patchy scarring in the roof and the posterior wall and areas which were not ablated at the prior procedure with the cryoballoon suggesting progressive
pathologic substrate remodeling and dilation of the left atrium. After 2 lesions with the Penta spline catheter in basket and flower pose the tachycardia transitioned and slowed. 360 ms with the posterior wall not out of the circuit and the mitral
isthmus now in the circuit suggesting transition to clockwise mitral annular flutter. Prior to addressing the mitral annular flutter we isolated the remainder of the posterior wall including a roofline and posterior wall line and floor line yet
tachycardia persisted. We also addressed the right side pulmonary vein septal aspect and flower pose leading to entrance block in the right superior pulmonary vein yet tachycardia persisted. We gave 300 mcg of nitroglycerin prior to ablation and
performing ablation from the posterior wall below the left inferior pulmonary vein down across the mitral isthmus down to approximately 3:00 on the mitral valve annulus the tachycardia then transitioned into multifocal and multi cycle length atrial
tachycardia ranging from 230 ms to 410 ms and as such we then cardioverted the patient. We then assessed our ablation lines demonstrating persistent bidirectional block across the mitral isthmus intra isthmus conduction time of 170 ms. Additional
lesions were given at the valve charting any electrograms available. Bidirectional block was then achieved and there was entrance and exit block confirmed at the roof posterior wall and floor of the left atrium. Entrance exit block was reconfirmed
in all 4 pulmonary veins. EP study postconversion demonstrated the patient was noninducible for any tach arrhythmias with burst pacing and atrial extrastimuli. There was no regional wall motion abnormality in the LV after ablation at the mitral
isthmus with the Penta spline catheter and flower post.
2. The intracardiac ultrasound catheter was positioned in the RA to identify the FO for targeting of transseptal puncture, assist��in identification of the pulmonary vein ostia, monitoring pre and post ablation pulmonary vein flow velocities,
monitoring for 'bubble' formation during RF application as a sign of thermal injury,��and to monitor for pericardial effusion during mapping and ablation procedure.���Left atrial size, LV ejection fraction, and pulmonary vein flows were monitored
pre and post ablation procedure. The other valves were inspected and found to be free of significant regurgitation or stenosis.
3.��Half of the calculated heparin bolus was administered prior to the first transeptal puncture.��Transseptal puncture was performed to diagnose RA and LA pressure so that safety of LA mapping and ablation could be further assessed, and to access
the left atrium and pulmonary veins for mapping and ablation.��This entailed advancing an 16.8 Brazilian sheath with dilator into the superior vena cava and withdrawing both (monitoring intracardiac ultrasound, fluoroscopy and tip pressure) with the
tip oriented toward the atrial septum.��The fossa ovalis was engaged (indicated by sudden displacement of the sheath tip as well as tenting of the fossa seen on intracardiac ultrasound).��Left atrial access required a pass with the [place]
needle extended.��Left atrial catheter position was confirmed by pressure monitoring (RA mean pressure 8 mm Hg and LA mean presure 14 mm Hg), LA saturation (99%),��as well as fluoroscopy.��The sheath was advanced over the dilator and positioned in
the left atrium.��This procedure was repeated for the Agilis sheath.��The remainder of the calculated heparin bolus was administered and heparin was
infused to maintain ACT at 300 -350 seconds throughout the case.
4.��RA pacing was performed via the proximal decapolar poles and LA pacing was performed via the distal decapolar poles.
5. A quadrapolar catheter was first positioned at the His position for His Bundle recording which was tagged via the 3-D Navex sytem, and then passed to the RVA for RV pacing and recording.
6. The Penta spline and grid catheter placed in each of the LIPV, LSPV, RSPV and the RIPV.��
7.��Next, a 3-D map was created using Navex.���A 3-D reconstructed CT image was compared to the 3-D Navex map to assist in anatomic interpretation, mapping and ablation.��The CT image and the NavX image were fused.
8. A total of 47 lesions were given to address the left atrial posterior wall flutter, mitral annular flutter, and focal reisolation of the right superior pulmonary vein.
9. Bidirectional block cross the mitral isthmus as above and electrical silence of the posterior wall for the clinical left atrial posterior wall flutter.
TOTAL FLOURO TIME: 16.0 minutes 163 mGy
TOTAL RF DURATION: 0 minutes
REVERSAL OF HEPARIN: 35 mg of protamine, slow IV administration
COMPLICATIONS:
None
Intracardiac US shows no pericardial effusion post ablation.
SUMMARY:��
Complex left atrial mapping and ablation.
Reisolation risk pulm vein, left atrial posterior wall atrial flutter 3 to milliseconds which is the clinical arrhythmia, clockwise mitral annular flutter was also addressed as the clinical arrhythmia transition to this arrhythmia after ablation of
the posterior wall.
RECOMMENDATIONS:
1. Consider same-day discharge
2. Resume anticoagulation for 6 weeks given that she has a watchman in place
3.��IV Lasix
4.��Can consider same-day discharge if she is stable from a respiratory perspective
Copy to: Dr. Enrike Cabrera
[2024-11-26] MEDS: LASIX 40 MG IV (10:25)
--- NOTE | 2024-11-26 14:12 | W.PN.UPDATE ---
Update Note
Progress Note Update
pt seen post PFA. Bilat groin sites without ht/bleeding, non tender. Post EKG NSR 1/st deg AVB, no acute changes. Received approx 1500cc fluids during case with some desaturation during extubation. Given 40mg IV lasix post procedure with good
diuresis, O2 sat >92% on room air, non labored breathing. Resume eliquis tonight. Decrease amiodarone to 200mg daily. Followup with Dr. Cabrera as scheduled. Home today if groin sites/tele remain stable.
== END 2024-11-26 14:30 | disposition home or self-care (01) ==
LOC: CATH 06:05
PROVIDERS: ATTENDING PHYSICIAN Internal Medicine Cardiovascular Disease; FAMILY PHYSICIAN Student in an Organized Health Care Education/Training Program; OTHER PHYSICIAN Internal Medicine Cardiovascular Disease
DX: I48.19 Other persistent atrial fibrillation (principal); I48.4 Atypical atrial flutter; I47.10 Supraventricular tachycardia, unspecified; E66.9 Obesity, unspecified; E78.5 Hyperlipidemia, unspecified; F32.A Depression, unspecified; F40.240 Claustrophobia; Z95.818 Presence of other cardiac implants and grafts; G47.33 Obstructive sleep apnea (adult) (pediatric); I13.0 Hypertensive heart and chronic kidney disease with heart failure and stage 1 through stage 4 chronic kidney disease, or unspecified chronic kidney disease; I44.0 Atrioventricular block, first degree; I50.32 Chronic diastolic (congestive) heart failure; I87.2 Venous insufficiency (chronic) (peripheral); K75.81 Nonalcoholic steatohepatitis (NASH); M19.90 Unspecified osteoarthritis, unspecified site; M85.80 Other specified disorders of bone density and structure, unspecified site; N18.30 Chronic kidney disease, stage 3 unspecified; N30.10 Interstitial cystitis (chronic) without hematuria; N31.9 Neuromuscular dysfunction of bladder, unspecified; R47.01 Aphasia; Z68.39 Body mass index [BMI] 39.0-39.9, adult; Z79.01 Long term (current) use of anticoagulants; Z79.899 Other long term (current) drug therapy; Z85.828 Personal history of other malignant neoplasm of skin; Z86.73 Personal history of transient ischemic attack (TIA), and cerebral infarction without residual deficits; Z87.19 Personal history of other diseases of the digestive system; Z88.1 Allergy status to other antibiotic agents; Z88.2 Allergy status to sulfonamides; Z88.5 Allergy status to narcotic agent; Z90.49 Acquired absence of other specified parts of digestive tract; Z90.710 Acquired absence of both cervix and uterus; Z90.722 Acquired absence of ovaries, bilateral; Z91.81 History of falling; Z96.653 Presence of artificial knee joint, bilateral
CPT/HCPCS: C1732; C1894; C1730; C1769; C1892; C1759; 85347; 93005; 93655; 93656; 93657; C1733; C1766

== ENCOUNTER 2024-12-20 16:39 | Inpatient (IN) | payer MEDICARE, OTHER, SELFPAY ==
[2024-12-20] VITALS (28 sets, daily range): BP systolic 103–153; BP diastolic 51–133; BMI 42.2; BMI 41.1
[2024-12-20 10:55] LABS: Hematocrit 37.2 % (37.0-47.0); Hemoglobin 12.2 g/dL (12.0-16.0); Mean Corp Hgb Conc. 32.8 g/dL (33.0-37.0); Mean Corpuscular Volume 88.4 fL (81.0-99.0); Nucleated Red Blood Cells % 0 %; Platelet Count 204 10^3/uL (130-400); Red Cell Dist. Width 15.7 % (11.5-14.5)
[2024-12-20 11:19] LABS: ALT (SGPT) 60 U/L (0-35); AST (SGOT) 51 U/L (14-36); Albumin 3.9 g/dl (3.5-5.0); Alkaline Phosphatase 129 U/L (38-126); Blood Urea Nitrogen 18 mg/dl (7-17); Calcium 8.8 mg/dl (8.4-10.2); Carbon Dioxide 27 mmol/L (22-30); Chloride 103 mmol/L (98-107); Glucose 150 mg/dl (70-99); Potassium 4.6 mmol/L (3.5-5.1); Sodium 136 mmol/L (135-145); Total Protein 6.9 g/dl (6.3-8.2); Troponin I 0.097 ng/ml; eGFR > 60.00
[2024-12-20] MEDS: TYLENOL 650 MG PO (11:22)
[2024-12-20] MEDS: MORPHINE SULFATE 4 MG IV ×2 (12:17→14:13)
[2024-12-20 14:02] LABS: Troponin I 1.030 ng/ml
--- NOTE | 2024-12-20 14:06 | ED.GENMED ---
History of Present Illness
General
Chief Complaint: Chest Pain
Source: patient and spouse
Time Seen by Provider: 12/20/24 10:52
History of Present Illness
History of Present Illness:
Note:
CHIEF COMPLAINT(S)
Chest and back pain.
HISTORY OF PRESENT ILLNESS
The patient is a 69-year-old female who presented with chest and back pain. She reported that the pain began this morning around 8:45 AM. The pain is described as tight and constant, radiating across the chest and towards the back, as well as
extending to the left arm down to the fingertips. The patient denied experiencing similar pain before, noting that previously any pain was localized to one breast only. There was no associated shortness of breath, coughing, belching, nausea, or
vomiting. She reported the pain does not worsen with movement or breathing.
The patient has a history of atrial fibrillation, for which she has undergone a cardioversion about one month ago, and a Watchman procedure previously. She is currently on apixaban (Eliquis) for anticoagulation. The patient noted taking the
medication around the same time as the onset of pain but does not believe it is related.
PAST MEDICAL AND SURGICAL HISTORY
The patient has a history of atrial fibrillation, treated with a Watchman procedure and recent cardioversion.
CHRONIC MEDICAL CONDITIONS SIGNIFICANTLY AFFECTING CARE
Atrial fibrillation.
MEDICATIONS
Apixaban (Eliquis).
REVIEW OF SYSTEMS
- Cardiovascular: Chest pain described as tight and constant, radiating to the back and left arm. No history of heart troubles was provided beyond current medication.
- Respiratory: Denied shortness of breath and coughing.
- Gastrointestinal: No belching, nausea, or vomiting.
PHYSICAL EXAM
General: Alert, no acute distress.
Skin: Warm, dry.
Head: Normocephalic, atraumatic.
Neck: Supple, trachea midline.
Eye Ears, Nose, Mouth, and Throat: Oral mucosa moist.
Cardiovascular: Heart rate regular at 62 bpm, no edema. Blood pressure 119/70 mmHg. No signs of cardiac distress.
Respiratory: Clear lung sounds.
Gastrointestinal: Abdomen non-tender.
Back: Normal range of motion, normal alignment.
Musculoskeletal: Tenderness across the chest wall; no outward signs of bruising. Normal range of motion, normal strength.
Neurological: Alert and oriented to person, place, time, and situation. No focal neurological deficit observed.
Psychiatric: Cooperative, appropriate mood & affect.
PROBLEM LIST
- Acute chest and back pain
- Atrial fibrillation on anticoagulation (chronic)
PLAN
- Check cardiac enzyme levels to assess for heart damage.
- Obtain a chest X-ray to evaluate for other potential causes of pain.
- Administer Tylenol for headache relief.
- Monitor the patient in the emergency department and consider rechecking lab work if necessary.
DIFFERENTIAL DIAGNOSIS
The Differential Diagnosis includes, in no particular order and is not limited to:
1. Musculoskeletal chest pain
2. Acute coronary syndrome
3. Pulmonary embolism
4. Costochondritis
5. Aortic dissection
6. Gastroesophageal reflux disease (GERD)
7. Pericarditis
8. Pneumonia
9. Panic disorder
10. Peptic ulcer disease
CARE-UPDATE
12/20/24 - 11:55
The patients EKG remains stable and unchanged from previous findings, which is reassuring. However, the heart enzyme levels are slightly elevated, suggesting a possible cardiac concern that requires further evaluation. The patients chest pain
persists at a level of 7 out of 10, and it has not been alleviated by nitroglycerin. The patient has taken aspirin and Eloquent as prescribed. It is recommended that a financial internship, potentially Dr. Johnson partner, be consulted to assess the
patients condition further. Morphine will be administered to address the patients significant pain.
CARE-UPDATE
12/20/24 - 12:11
Consulted with cardiology, who will perform an evaluation of the patient. Morphine dosage has been ordered.
CARE-UPDATE
12/20/24 - 14:08
The patients pain is rated at 4 out of 7, described as a solid sensation. The patient received aspirin from EMS and has continued with their morning dose of Eliquis. awaiting Cardiology consultation. Troponin levels increased to 1.03. Plan to repeat
morphine administration as nitroglycerin was ineffective earlier. Admission for further monitoring is advised, with consideration for initiating IV heparin therapy.
Disposition:
SUMMARY OF ENCOUNTER
The patient, a 69-year-old female, presented to the emergency department with chest and back pain that began this morning. She recently initiated steroid treatment, but the pain preceded this medication. Emergency Medical Services administered
aspirin and nitroglycerin, which did not alleviate the pain and resulted in a headache. Upon arrival at the hospital, the patient was given morphine, which reduced her pain levels from 7 to 4 out of 10. Her initial EKGs, including the one taken by
EMS, were non-ischemic.
DISPOSITION
Admit for unstable angina and consider cardiac catheterization.
ASSESSMENT
The patient has chest pain consistent with unstable angina, persisting despite nitroglycerin, with an elevated heart enzyme level, suggesting possible cardiac-related issues.
EMERGENCY TREATMENTS ADMINISTERED
Morphine was administered in the emergency department to alleviate pain.
MANAGEMENT OF THE PATIENTS CARE WAS DISCUSSED WITH
The case was discussed with cardiology, who will evaluate the patient further.
PLAN
The patient will be admitted for further monitoring and evaluation of unstable angina. Cardiology will assess the need for cardiac catheterization and consider the usage of heparin in view of the recent intake of apixaban (Eliquis).
INDEPENDENT REVIEW OF LABS AND INTERPRETATION OF TESTS
My independent review of cardiac enzyme levels indicates slight elevation, suggesting potential cardiac issues that require further evaluation.
MEDICATION RECONCILIATION
The patient received aspirin and nitroglycerin pre-hospital. Morphine was administered in the emergency department.
MEDICAL DECISION MAKING
- Number and Complexity of Problems Addressed: Chronic conditions affecting care: Atrial fibrillation. DDx List: Musculoskeletal chest pain, Acute coronary syndrome, Pulmonary embolism, Costochondritis, Aortic dissection, Gastroesophageal reflux
disease (GERD), Pericarditis, Pneumonia, Panic disorder, Peptic ulcer disease.
- Data:
- Category 1: Independent review of cardiac enzyme levels confirms slight elevation.
- Category 3: Discussion of management with cardiology, who agreed with maintaining the current management approach and assessing the possibility of cardiac catheterization.
- Risk: The consideration of admission reflects the complexity and potential risk of complications due to the patients chest pain and its persistence despite initial treatment. Proactive measures for evaluation and potential intervention, including
possible cardiac catheterization, highlight the risk management strategy.
DIAGNOSIS
Unstable Angina (I20.0)
Old records reviewed and patient actually had an ablation in November 2024.
1536 patient seen by cardiology bedside echo performed. Cardiology recommends hold heparin for now and he will trend troponin. Admit
Case discussed with hospitalist
Past History
Past History
ED Past Medical History: Arrthythmia (Paroxysmal atrial fibrillation), CHF, CVA ( X2 with left sided weakness), HTN, Hypercholesterolemia, Psychiatric (Anxiety, depression) and Other (Chronic headaches, PNA, UTI); Negative Asthma or NIDDM
ED Past Surgical History: Cholecystectomy, and Gynecological (Hysterectomy)
Social History
Tobacco: Non-smoker
Alcohol: None
Drug: None
Personal:
Living: with family
Employment: Retired
Family History
Family History: Hypertension
Phy Exam
Physical Exam
Physical Exam:
.
Scores
Heart Score for Chest Pain Patients
STEMI patient?: No
History: Highly Suspicious
ECG: Normal
Age: >/= 65 years
Risk Factors: >/= 3 Risk Factors or History of CAD
Troponin: >/= 3 x Normal Limit
Heart Score for Chest Pain Patients: 8
Heart Score Risk: 72.7 % MACE over next 6 weeks
Course
Orders/Labs/Results
Orders:
Orders
12/20/24 10:43
Electrocardiogram (*1) Urgent
Reason for Study: Chest Pain
Cardiac Monitoring- Treatment ONCE
EKG- Treatment ONCE
IV Insert/Care/Rem.- Treatment PRN
O2 Therapy [RESP] Urgent
Titrate/Wean O2 to maintain O2 sat greater than (%): 90
Special Instructions: Maintain sats >/=90%
Pulse Ox/spot Check [RESP] Urgent
Quantity: 1
Special Instructions: ON ROOM AIR
12/20/24 10:48
Complete Blood Count/With Diff Urgent
Comprehensive Metabolic Panel Urgent
Troponin I Urgent
12/20/24 11:19
Acetaminophen [Tylenol] 1,000 mg PO NOW STA
Acetaminophen [Tylenol] 650 mg .ROUTE .STK-MED ONE
12/20/24 11:20
Acetaminophen [Tylenol] 650 mg PO NOW STA
12/20/24 11:30
Electrocardiogram (*1) Urgent
Reason for Study: Chest Pain
12/20/24 11:31
Morphine Sulfate 4 mg IV NOW STA
12/20/24 11:34
CR Chest Portable - 1 View Urgent
Comment:
Reason For Exam: cp
Reason Study Needs to be Portable: Patient Unstable
12/20/24 12:30
Electrocardiogram (*1) Urgent
Reason for Study: Chest Pain
12/20/24 13:33
Troponin I Urgent
12/20/24 14:06
Morphine Sulfate 4 mg IV NOW STA
12/20/24 14:25
Echo 2D MMode Color/Doppler Urgent
Reason for Study: MO
12/20/24 Dinner
Cholesterol Lowering
At Your Request: Full Participation
Cholesterol Lowering: Sodium, 2 Gram
12/20/24 15:48
CT Chest/abd/pelvis Angio W/wo Urgent
Comment:
Reason For Exam: cp, back pain
12/20/24 15:53
Admit/Transfer Patient As Directed
Co-Sign Provider:
Level of Care: Inpatient admission
Assign to:: IVU
Physician / Group: dori
Diagnosis: nstemi
Reason for Hospitalization: nstemi
Expected length of stay greater than two midnights?: Yes
ELOS- Estimated Length of Stay in days: 2
I certify the patient meets the requirements for IP care: Yes
Code Status As Directed
Resuscitation Status: Full Code
PRN Pain Medication Management As Directed
May give lesser potent ordered pain med per pt: Yes
preference::
Protocol:: Medication orders for pain may be administered in a
manner that supports deferring to patient preference
when the pt is:
- Requesting an ordered lesser potent pain medication.
Least to most potent pain medications are defined
as: acetaminophen < NSAID < tramadol < opioids
(morphine, oxycodone, hydromorphone).
- Requesting a lesser dose of the same medication IF
ORDERED.
- Requesting a less intrusive route of administration
if both routes are prescribed by the provider (PO <
IV).
12/20/24 16:28
Troponin I Q6H
12/20/24 18:26
VTE Contraindication Routine
VTE Mechanical Device Contraindication: Medical Contraindication
Pharmocologic Contraindication: Medical Contraindication
Activity As Directed
Activity Level: As Tolerated
Vital Signs As Directed
Frequency: Per unit guidelines
12/20/24 20:00
Apixaban [Eliquis] 5 mg PO BID
12/20/24 22:54
Troponin I Q6H
12/21/24 03:27
Complete Blood Count/With Diff IN AM
Comprehensive Metabolic Panel IN AM
Troponin I Q6H
Abnormal Lab Results
12/20/24 12/20/24 12/20/24
10:48 13:33 16:28
MCHC 32.8 L g/dL
(33.0-37.0)
RDW 15.7 H %
(11.5-14.5)
Absolute Lymphs (auto) 0.8 L 10^3/uL
(1.2-3.4)
Neutrophils % 83.0 H %
(42.2-75.2)
Lymphocytes % 13.3 L %
(20.5-51.1)
BUN 18 H mg/dl
(7-17)
Glucose 150 H mg/dl
(70-99)
AST 51 H U/L
(14-36)
ALT 60 H U/L
(0-35)
Alkaline Phosphatase 129 H U/L
(38-126)
Troponin I 0.097 H* ng/ml 1.030 H* D ng/ml 5.530 H* D ng/ml
12/20/24 10:48
12/20/24 10:48
Vital Signs
Initial and Last Documented VS:
Initial Vital Signs
Pulse Resp Pulse Ox
58 18 92
12/20/24 10:46 12/20/24 10:46 12/20/24 10:46
Last Documented Vital Signs
Temp Pulse Resp BP Pulse Ox
98.1 F 48 16 109/62 91
12/21/24 07:19 12/21/24 07:19 12/21/24 07:19 12/21/24 06:00 12/21/24 07:19
*Pulse Oximetry
SaO2: 94
Oxygen Mode of Delivery: Room air
Patient hypoxic: no
*Ad Operations Intern Interpretation
Rate: normal
Interpretation: normal
Rhythm: sinus
*Critical Care Note
Total Time (30-74mins, 75-104mins- exclusive of procedures): 50 minutes
Data Reviewed
Review of Other/Old Records Reveals: Records (Recent cardioversion reviewed from November 2024)
Source: patient and spouse
ED Attending Note
-
Portions of this chart may have been created with voice recognition software.� Occasional wrong word or��sound alike� substitutions may have occurred due to the inherent limitations of voice recognition software.
Discharge Plan
Departure
Patient Disposition: Admit
Date of Disposition: 12/20/24
Time of Disposition: 14:09
Admit to: IVU
Presentation/result/management discussed w/ accepting MD/DO: Hospitalist
Discharge Problem:
Acute non-ST elevation myocardial infarction (NSTEMI)
Interventions
Interventions:
*Risk Screen - Suicide Last Done: 12/20/24 10:49
*General Assessment Last Done: 12/20/24 10:49
*Neglect/Abuse Screening Last Done: 12/20/24 10:49
*ED- Fall Risk Assessment Last Done: 12/20/24 18:05
*ED COVID-19 Vaccine History Last Done: 12/20/24 10:58
*ED Influenza Vaccine History Last Done: 12/20/24 10:58
*Nursing Disposition Last Done: 12/20/24 18:05
ED- Cardiac Assessment Last Done: 12/20/24 10:58
Discharge Date and Time
Discharge Date/Time: 12/20/24 18:05
--- NOTE | 2024-12-20 15:55 | HPS.HSE ---
Family Physician
-
Family Physician: Jus Hewitt DO
Chief Complaint
-
chest pain
History of Present Illness
69-year-old female past medical history of persistent atrial fibrillation status post cardioversion x 4 and ablation 1 month ago, pulmonary vein isolation, watchman on Eliquis,, chronic diastolic heart failure, obstructive sleep apnea, CKD 3,
advanced arthritis, hypertension, hyperlipidemia, right middle cerebral artery CVA, mild cognitive impairment, obesity, chronic lymphedema, hiatal hernia, migraines, interstitial cystitis, neurogenic bladder, skin cancer status post excision,
positive AVIS, ADHD, anxiety/depression, osteopenia, alopecia, insomnia, obesity, presenting with chest starting this morning.. Pain is described as tight and constant rating across the chest and towards the back as well extending into the left arm
down to her fingertips. She denies having similar symptoms before. Denies any associate shortness of with, cough, belching, nausea or vomiting. Pain is not worse with movement or breathing not worse with exertion.
Denies any lower extremity edema. Denies any weight gain or weight loss.
Denies smoking or alcohol use.
Medical History
Past Medical History
Past Medical History: Reports Other (persistent atrial fibrillation status post cardioversion x 4 and ablation 1 month ago, pulmonary vein isolation, watchman on Eliquis,, chronic diastolic heart failure, obstructive sleep apnea, CKD 3, advanced
arthritis, hypertension, hyperlipidemia, right middle cerebral artery CVA, mild cognitive i)
Past Surgical History: Reports Other (1. Pulmonary vein isolation. 2. Watchman implantation. 3. Cardioversion x4. 4. Transesophageal echocardiogram x2. 5. Left total knee arthroplasty. 6. Right total knee arthroplasty. 7. Right knee arthroscopy.
8. Total abdominal hysterectomy and bilateral salpingo-oophorectomy. 9. Cholecystectomy.)
Social History
Tobacco: Non-smoker
Alcohol: None
Drug: None
Family History
Family History: Not pertinent
Allergies / Home Medications
Allergies reflects when Allergies were last updated in [facility].
Home Medications with original date entered in [facility]
Allergy/Medication List:
Allergies
Allergy/AdvReac Type Severity Reaction Status Date / Time
adhesive Allergy RASH, Verified 12/20/24 11:22
ERYTHEMA
nitrofurantoin Allergy rash, Verified 12/20/24 11:22
swelling
nitrofurantoin Allergy Rash/SWELLI Verified 12/20/24 11:22
macrocrystalline (From NG
Macrodantin)
Sulfa (Sulfonamide Allergy rash, Verified 12/20/24 11:22
Antibiotics) swelling
oxycodone AdvReac drowsiness, Uncoded 12/20/24 11:22
disorientation
Home Medications
aripiprazole 2 mg tablet 2 mg PO DAILY Mental Health/Anxiety 03/29/22
atorvastatin 40 mg tablet 40 mg PO HS High Cholesterol 04/03/22
zolpidem 10 mg tablet (Ambien) 10 mg PO HS Sleep 04/03/22
amitriptyline 50 mg tablet 50 mg PO HS Mental Health/Anxiety 08/01/22
solifenacin 5 mg tablet 10 mg PO DAILY OAB 08/15/22
furosemide 40 mg tablet 40 mg PO DAILY Fluid Retention/Swelling #0 tabs 04/08/24
apixaban 5 mg tablet (Eliquis) 5 mg PO BID 11/05/24
cholecalciferol (vitamin D3) 125 mcg (5,000 unit) tablet (Vitamin D3) 250 mcg PO DAILY 11/05/24
fluoxetine 10 mg tablet 10 mg PO DAILY 11/05/24
furosemide 40 mg tablet (Lasix) 40 mg PO PRN PRN Edema 11/05/24
iron 28 mg PO SUWEFR 11/05/24
magnesium 250 mg tablet 500 mg PO HS 11/05/24
melatonin 10 mg tablet 20 mg PO HS Sleep 11/05/24
metoprolol succinate 100 mg tablet,extended release 24 hr 100 mg PO BID 11/05/24
multivitamin-ferrous fumarate-folic acid 18 mg-400 mcg tablet (Women's Daily Multivitamin) 1 tab PO HS 11/05/24
amiodarone 200 mg tablet 200 mg PO DAILY #0 tabs 11/26/24
Review of Systems
-
History Source: Patient
A 12 point ROS was completed and negative except as noted: Yes
Constitutional: Reports No Symptoms
EENT: Reports No Symptoms
Respiratory: Reports No Symptoms
Cardiac: Reports See HPI
Abdomen/GI: Reports No Symptoms
: Reports No Symptoms
Musculoskeletal: Reports No Symptoms
Skin: Reports No Symptoms
Neurological: Reports No Symptoms
Endocrine: Reports No Symptoms
Hematologic/Lymphatic: Reports No Symptoms
Psych: Reports No Symptoms
Physical Exam
Vital Signs
Vital Signs
Temp Pulse Resp BP Pulse Ox
98.2 F 59 15 144/76 96
12/20/24 10:49 12/20/24 15:00 12/20/24 15:00 12/20/24 15:00 12/20/24 15:27
Physical Exam
General: Well Developed, Well Nourished and No Apparent Distress
HEENT: NormoCephalic, Moist mucous membranes and Atraumatic
Respiratory: Clear
Cardiac: S1/S2 and Regular Rhythm; No Murmur or Rub
GI: Soft, Non Tender, Non Distended and Normal Bowel Sounds; No Organomegaly
Rectal: Deferred by Provider
Musculoskeletal: No Clubbing, No Cyanosis and No Edema
Skin: No Rash
Neuro: Nonfocal/grossly intact
Laboratory Results
-
12/20/24 10:48
12/20/24 10:48
Laboratory Results
Total Bilirubin 1.1 mg/dl (0.2-1.3) 12/20/24 10:48
AST 51 U/L (14-36) H 12/20/24 10:48
ALT 60 U/L (0-35) H 12/20/24 10:48
Alkaline Phosphatase 129 U/L (38-126) H 12/20/24 10:48
Troponin I 1.030 ng/ml H* D 12/20/24 13:33
Data Reviewed
-
Lab Data: Labs Reviewed by me
Old Records: Reviewed
Impression/Plan
-
IMPRESSION:
PLAN:
# Chest pain concerning for NSTEMI
- Troponin 0.097, increased to 1.03
-EKG shows sinus bradycardia heart rate 51
- Bedside echocardiogram without any acute abnormality
-CT angio chest abdomen pelvis pending to rule out aortic dissection
-Continue to trend troponin
- Cardiology recommending against heparin and continuing Eliquis
Persistent atrial fibrillation status post cardioversion x 4, ablation 1 month ago, and prior Watchman
- Continue Eliquis
- Continue amiodarone
- Continue metoprolol
Chronic diastolic heart failure
- Continue Lasix
Obstructive sleep
CKD 3
- Renal function at baseline
Advanced arthritis
Essential hypertension
Hyperlipidemia
- Continue statin
History of right middle cerebral artery CVA
Mild cognitive impairment
Obesity
Chronic lymphedema
Hiatal hernia
Interstitial cystitis
Neurogenic bladder
Skin cancer status post excision
History of positive AVIS
- Has appointment with rheumatology next week
ADHD
Anxiety/depression
- Continue amitriptyline, aripiprazole
Osteopenia
Alopecia
Insomnia
Full code
DVT prophylaxis�Eliquis
Cardiac diet
[2024-12-20 17:08] LABS: Troponin I 5.530 ng/ml
--- NOTE | 2024-12-20 19:13 | CON.CAR ---
Consultation
Consultation Request
Date/Time Consultation Requested: 12/20/24 3:00PM
Date/Time Consultation Performed: 12/20/24 6:00PM
Requesting Provider: Dr Matias
Performing Provider: Dr Hampton
Reason for Consultation: chest pain
Medical History
-
Chief Complaint: chest pains
History of Present Illness:
69-year-old female with complex past medical history including paroxysmal atrial fibrillation status post ablation November 2024, CVA, status post Watchman, hypertension, hyperlipidemia, obesity, and mild cognitive impairment presents with chest
pain. The pain is an ache in the center and right side of her chest. She also noticed some back pain with this. She woke up with the pain and it was moderate to severe. She was given sublingual nitroglycerin with little improvement. She was
given morphine and it did significantly improve. The pain continues to wax and wane. She has never had this pain before. She had an ablation about 4 weeks ago and had no symptoms related to that. She denies any shortness of breath. She denies
any sweats or nausea. She denies any orthopnea, PND, or edema. She currently has approximately 2 out of 10 pain.
PMH
Persistent atrial fibrillation and atypical atrial flutter, status post cardioversion x4, pulmonary vein isolation 07/2023 and 11/27, and Watchman implant 08/2022; pharmacological therapy with Amiodarone and Metoprolol Succinate, oral anticoagulation
with Eliquis.
Hypertension.
Hyperlipidemia.
Chronic diastolic heart failure, preserved ejection fraction.
Chronic lymphedema with venous insufficiency.
Obstructive sleep apnea, compliant with CPAP.
Chronic kidney disease stage 3.
Hiatal hernia.
Diverticulosis.
Hemorrhoids.
Nonalcoholic steatohepatitis with mildly elevated transaminases.
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
Remote migraines.
Mild cognitive impairment.
Ambulatory dysfunction with history of falls.
Osteoarthritis, status post bilateral total knee arthroplasty.
Interstitial cystitis with urinary frequency.
Neurogenic bladder.
Skin cancer, 11/2022, status post excision.
TMJ dysfunction.
Positive AVIS
ADHD.
Anxiety.
Depression.
Claustrophobia.
Osteopenia.
Alopecia.
Insomnia.
Obesity, BMI 39.6.
Past Medical History
Past Surgical History: Cholecystectomy and Gynecological
Social History
Tobacco: Non-Smoker
Alcohol: None
Living: With Family
Family History
Family History: Hypertension
Allergies / Home Medications
Allergy/AdvReac Type Severity Reaction Status Date / Time
adhesive Allergy RASH, Verified 12/20/24 11:22
ERYTHEMA
nitrofurantoin Allergy rash, Verified 12/20/24 11:22
swelling
nitrofurantoin Allergy Rash/SWELLI Verified 12/20/24 11:22
macrocrystalline (From NG
Macrodantin)
Sulfa (Sulfonamide Allergy rash, Verified 12/20/24 11:22
Antibiotics) swelling
oxycodone AdvReac drowsiness, Uncoded 12/20/24 11:22
disorientation
�Medication �Instructions �Recorded �Confirmed �Type
atorvastatin 40 mg tablet 40 mg PO HS High Cholesterol 04/03/22 12/20/24 History
zolpidem 10 mg tablet (Ambien) 10 mg PO HS Sleep 04/03/22 12/20/24 History
amitriptyline 50 mg tablet 50 mg PO HS Mental Health/Anxiety 08/01/22 12/20/24 History
apixaban 5 mg tablet (Eliquis) 5 mg PO BID 11/05/24 12/20/24 History
cholecalciferol (vitamin D3) 125 250 mcg PO DAILY 11/05/24 12/20/24 History
mcg (5,000 unit) tablet (Vitamin
D3)
fluoxetine 10 mg tablet 10 mg PO DAILY 11/05/24 12/20/24 History
furosemide 40 mg tablet (Lasix) 40 mg PO BID 11/05/24 12/20/24 History
metoprolol succinate 100 mg 100 mg PO BID 11/05/24 12/20/24 History
tablet,extended release 24 hr
amiodarone 200 mg tablet 200 mg PO DAILY #0 tabs 11/26/24 12/20/24 Rx
aripiprazole 5 mg tablet 5 mg PO DAILY 12/20/24 12/20/24 History
ferrous sulfate 325 mg (65 mg 325 mg PO SUWEFR 12/20/24 12/20/24 History
iron) tablet
gabapentin 100 mg capsule 100 mg PO BID 12/20/24 12/20/24 History
magnesium oxide 500 mg PO HS 12/20/24 12/20/24 History
prednisone 10 mg tablet 10 mg PO DIRECTED 12/20/24 12/20/24 History
solifenacin 10 mg tablet 10 mg PO DAILY 12/20/24 12/20/24 History
therapeutic multivitamin 1 tab PO DAILY 12/20/24 12/20/24 History
Review of Systems
-
History Source: Patient
Constitutional: No Symptoms
EENT: No Symptoms
Respiratory: No Symptoms
Cardiac: Chest Pain
Abdomen/GI: No Symptoms
: No Symptoms
Musculoskeletal: Muscle Stiffness
Skin: No Symptoms
Neurological: No Symptoms
Endocrine: No Symptoms
Hematologic/Lymphatic: No Symptoms
Physical Exam
Vital Signs
Temp Pulse Resp BP Pulse Ox
98.2 F 62 19 146/62 94
12/20/24 10:49 12/20/24 18:16 12/20/24 18:00 12/20/24 18:16 12/20/24 16:45
Lab Results
12/20/24 10:48
Troponin I 5.530 ng/ml H* D 12/20/24 16:28
Physical Exam
General: Well Developed, Well Nourished and No Apparent Distress
HEENT: Normocephalic and Anicteric
Respiratory: Clear and Non Labored Respirations
Cardiac: S1/S2, Regular Rhythm and Murmur (03/10 syst LSB)
GI: Soft and Non Tender
Musculoskeletal: No Edema
Skin: Warm and Dry
Neuro: AO x 3
Psych: Calm
Impression / Plan
-
Assess:
chest pain/NSTEMI
Paroxysmal atrial fibrillation status post PVI x 2 2023, 11/27
Status post Watchman 2022,
History of CVA
Hypertension
Hyperlipidemia
Chronic diastolic heart failure, preserved ejection fraction.
Chronic lymphedema with venous insufficiency.
Obstructive sleep apnea, compliant with CPAP.
Chronic kidney disease stage 3.
Hiatal hernia.
Diverticulosis.
Hemorrhoids.
Nonalcoholic steatohepatitis with mildly elevated transaminases.
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
Remote migraines.
Mild cognitive impairment.
Ambulatory dysfunction with history of falls.
Positive AVIS.
Echo 12/20/24: EF 60 to 65%, stage II diastolic dysfunction, mild to moderate MR, mild to moderate TR, PA pressure 51
CTA chest with no evidence for dissection aneurysm or hematoma.
Plan:
She presents with evidence of a likely non-STEMI. She continues to have mild chest pains. Will start IV heparin. Last dose of Eliquis was this morning. Start IV nitroglycerin and will use morphine for pain.
ECG with mild nonspecific ST abnormalities but no ST elevation.
Echocardiogram with a preserved ejection fraction no clear wall motion abnormality. CT scan of the chest reviewed with no aortic dissection. Patient was on Eliquis prior to procedure. No pericardial effusion.
Plan will be for likely cardiac catheterization this admission. Goal will be to get her pain-free.
Troponin at 5. Will continue to trend. Add aspirin 81 mg daily. Continue Toprol and amiodarone. She remains in sinus rhythm.
Creatinine currently normal at 0.9.
Transaminases are mildly abnormal. Continue to trend. Okay to continue atorvastatin 40 mg daily for now.
Patient currently on prednisone. Will review records as to why on prednisone. Continue for now
Data Reviewed
-
EKG: Tracing Personally Visualized and interpreted
Radiology: Report Reviewed by me
Ultrasound: Image Personally Visualized and interpreted
Medical Tests (Nuc Med, Echo etc): Image Personally Visualized and interpreted
Labs: Labs Reviewed by me
Old Records: Reviewed
[2024-12-20] MEDS: HEPARIN 25000 UNITS/250 ML IV ×2 (19:19→20:24)
[2024-12-20] MEDS: NITROGLYCERIN PREMIX 250 IV (19:22)
[2024-12-20] MEDS: MORPHINE SULFATE 2 MG IV ×2 (19:22→23:24)
[2024-12-20 20:01] LABS: APTT 28.9 Sec (23.4-35.0)
[2024-12-20] MEDS: LASIX PO (21:14)
[2024-12-20] MEDS: LIPITOR 40 MG PO (21:21)
[2024-12-20] MEDS: ELAVIL 50 MG PO (21:22)
[2024-12-20] MEDS: AMBIEN 10 MG PO (21:22)
[2024-12-20] MEDS: MAGNESIUM OXIDE 400 MG PO (21:22)
[2024-12-20] MEDS: NEURONTIN 100 MG PO (21:24)
[2024-12-20 23:02] LABS: Hematocrit 34.4 % (37.0-47.0); Hemoglobin 11.4 g/dL (12.0-16.0); Mean Corp Hgb Conc. 33.1 g/dL (33.0-37.0); Mean Corpuscular Volume 88.2 fL (81.0-99.0); Platelet Count 203 10^3/uL (130-400); Red Cell Dist. Width 15.8 % (11.5-14.5)
[2024-12-20 23:37] LABS: Troponin I 4.720 ng/ml
[2024-12-21] VITALS (47 sets, daily range): BP systolic 85–148; BP diastolic 54–132; BMI 41.0
--- NOTE | 2024-12-21 01:25 | PTCARENOTE ---
Received pt at change of shift resting in bed. SB-SR on tele, HR 40's-50's. Reached out to Dr. Hampton, instructed RN to hold both Toprol XL and PO Lasix. Heparin and Nitro gtt initiated and infusing per protocol. PRN IV Morphine administered per
pt request for CP--see MAY. 2LO2 applied to pt, sating mid 90's. pt ambulating to BSC with assistance of RN and cane. Fall risk precautions maintained, pt calls appropriately. Call he within reach.
[2024-12-21 04:01] LABS: Hematocrit 35.1 % (37.0-47.0); Hemoglobin 11.5 g/dL (12.0-16.0); Mean Corp Hgb Conc. 32.8 g/dL (33.0-37.0); Mean Corpuscular Volume 90.0 fL (81.0-99.0); Nucleated Red Blood Cells % 0 %; Platelet Count 221 10^3/uL (130-400); Red Cell Dist. Width 15.8 % (11.5-14.5)
[2024-12-21 04:10] LABS: APTT 46.9 Sec (23.4-35.0)
[2024-12-21 04:23] LABS: ALT (SGPT) 216 U/L (0-35); AST (SGOT) 269 U/L (14-36); Albumin 3.6 g/dl (3.5-5.0); Alkaline Phosphatase 189 U/L (38-126); Blood Urea Nitrogen 17 mg/dl (7-17); Calcium 8.9 mg/dl (8.4-10.2); Carbon Dioxide 31 mmol/L (22-30); Chloride 101 mmol/L (98-107); Estimated Creatinine Clearance 66 ml/min; Glucose 119 mg/dl (70-99); Sodium 136 mmol/L (135-145); Total Protein 6.3 g/dl (6.3-8.2); eGFR > 60.00
[2024-12-21 04:28] LABS: Potassium 4.4 mmol/L (3.5-5.1)
[2024-12-21] MEDS: TYLENOL 1000 MG PO (04:29)
[2024-12-21 04:36] LABS: Troponin I 6.480 ng/ml
[2024-12-21 06:19] LABS: Hepatitis C Antibody Negative (Negative)
[2024-12-21] MEDS: DETROL LA 4 MG PO (08:22)
[2024-12-21] MEDS: ASPIR LOW (ENTERIC COATED) 81 MG PO (08:22)
[2024-12-21] MEDS: NEURONTIN 100 MG PO ×2 (08:23→21:17)
[2024-12-21] MEDS: DELTASONE 40 MG PO (08:23)
[2024-12-21] MEDS: ABILIFY 5 MG PO (08:23)
[2024-12-21] MEDS: PACERONE 200 MG PO (08:23)
[2024-12-21] MEDS: THERAGRAN 1 TABLET PO (08:23)
[2024-12-21] MEDS: VITAMIN D3 (cholecalciferol) 250 MCG PO (08:24)
[2024-12-21] MEDS: FEOSOL 325 MG PO (08:26)
[2024-12-21] MEDS: PROZAC 10 MG PO (08:26)
--- NOTE | 2024-12-21 09:23 | W.PN.HOSP.TC ---
Today's Communication/Plan
-
Planning cath this week
Assessment / Plan
Assessment / Plan
69F with PAF on eliquis, CHF, KERI, CKD3, h/o CVA p/w chest pain, found to have NSTEMI.
NSTEMI
- Troponin still climbing to 6.55
- EKG shows sinus bradycardia no PATTI
- Echo EF 60-65% G2DD, mod LVH no RWMA,
- CT angio c/a/p neg for dissection
- Cardiology consulted. Cath in AM. ASA ordered by cards
- IV heparin drip
- Pain control with nitro and IV morphine
Persistent atrial fibrillation
s/p cardioversion x 4, ablation/PVI 1 month ago, and prior Watchman 2022
- hold Eliquis
- Continue amiodarone
- hold metoprolol for bradycardia
Chronic diastolic heart failure
Chronic lymphedema
- Continue Lasix
Essential hypertension
BP controlled
Hyperlipidemia
- Continue statin
History of right middle cerebral artery CVA
History of positive AVIS
- Has appointment with rheumatology next week
pt on prednisone
ADHD
Anxiety/depression
- Continue amitriptyline, aripiprazole
Full code
DVT prophylaxis� hep gtt
Anticipated Discharge: > 48 hours
Subjective/Interval History
-
Date of Service: December 21, 2024
Pt having intermittent sharp and dull chest pain in lower chest wrapping around back, relieved by nitro and morphine, some wooziness. No SOB.
Objective Data
-
Labs:
Laboratory Results
12/20/24 12/21/24 12/21/24
22:54 03:27 10:20
WBC 8.5 8.4
Hgb 11.4 L 11.5 L
Hct 34.4 L 35.1 L
Plt Count 203 221
APTT 46.9 H Pending
Sodium 136
Potassium 4.4
Chloride 101
Carbon Dioxide 31 H
BUN 17
Creatinine 0.9
Glucose 119 H
Calcium 8.9
Total Bilirubin 1.1
AST 269 H
ALT 216 H
Alkaline Phosphatase 189 H
Vital Signs:
Vital Signs
Temp Pulse Resp BP Pulse Ox
98.1 F 54 16 97/59 91
12/21/24 07:19 12/21/24 08:36 12/21/24 07:19 12/21/24 08:36 12/21/24 07:19
I&O
12/20/24 12/21/24 12/22/24
06:59 06:59 06:59
Intake Total 960 / 960
Output Total 200 / 200
Balance 760 / 760
Review of Systems
-
All other systems: Reviewed and negative
Physical Exam
-
General: No Apparent Distress
HEENT: Moist Mucous Membranes, Anicteric and PERRLA
Respiratory: Clear to Auscultation; Negative Wheezes, Rales or Rhonchi
Cardiac: Regular Rhythm and S1/S2; Negative Murmur, Rub or Gallop
GI: Soft, Nontender, Nondistended and Normal Bowel Sounds
Musculoskeletal: No Edema
Skin: Warm and Dry; Negative Rash, Ulcers or Lesions
Neuro: Awake and AO x 3
Hematologic / Lymphatic: No Lymphadenopathy
Psych: Calm
--- NOTE | 2024-12-21 10:40 | W.PN.CARDCBS ---
Today's Communication / Plan
-
Continue IV heparin, IV nitro, aspirin.
Continue morphine for pain control.
Plan will be for cardiac cath in AM.
Hold Toprol for now with bradycardia
We will hold atorvastatin with abnormal liver function test. Continue to trend
Okay to continue amiodarone. She remains in sinus. Hold Eliquis
Impression / Plan
-
Assess:
chest pain/NSTEMI
Paroxysmal atrial fibrillation status post PVI x 2 2023, 11/27
Status post Watchman 2022,
History of CVA
Hypertension
Hyperlipidemia
Chronic diastolic heart failure, preserved ejection fraction.
Chronic lymphedema with venous insufficiency.
Obstructive sleep apnea, compliant with CPAP.
Chronic kidney disease stage 3.
Hiatal hernia.
Diverticulosis.
Hemorrhoids.
Nonalcoholic steatohepatitis with mildly elevated transaminases.
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
Remote migraines.
Mild cognitive impairment.
Ambulatory dysfunction with history of falls.
Positive AVIS.
Echo 12/20/24: EF 60 to 65%, stage II diastolic dysfunction, mild to moderate MR, mild to moderate TR, PA pressure 51
CTA chest with no evidence for dissection aneurysm or hematoma.
Plan:
She presents with evidence of a likely non-STEMI. She continues to have intermittent episodes of chest pain but is currently pain-free. Continue IV heparin, IV nitroglycerin and morphine.
ECG with mild nonspecific ST abnormalities but no ST elevation.
Plan will be for cardiac cath in AM. Will trend troponin. Initially they were decreasing but last troponin was up slightly. Continue to follow.
Echocardiogram with a preserved ejection fraction no clear wall motion abnormality. CT scan of the chest reviewed with no aortic dissection. Patient was on Eliquis prior to procedure. No pericardial effusion.
Plan will be for cardiac catheterization in AM
She has marked sinus bradycardia. Will hold Toprol. Continue amiodarone. Continue to hold Eliquis for cardiac cath while on IV heparin.
Creatinine currently normal at 0.9.
Transaminases are worse. Continue to trend. Hold Atorvastatin and follow.
Patient currently on prednisone. Will discuss with hospitalist. Continue for now
Progress Note - Art Installer
Subjective
Date of Service: December 21, 2024
Still having intermittent episodes of chest pain. Currently pain-free. Slept okay overnight. Has a mild headache from the nitroglycerin.
Objective
Labs:
12/21/24 03:27
12/21/24 03:27
Labs
Hgb 11.5 g/dL (12.0-16.0) L 12/21/24 03:27
Hct 35.1 % (37.0-47.0) L 12/21/24 03:27
Plt Count 221 10^3/uL (130-400) 12/21/24 03:27
APTT 46.9 Sec (23.4-35.0) H 12/21/24 03:27
Sodium 136 mmol/L (135-145) 12/21/24 03:27
Potassium 4.4 mmol/L (3.5-5.1) 12/21/24 03:27
BUN 17 mg/dl (7-17) 12/21/24 03:27
Creatinine 0.9 mg/dL (0.6-1.0) 12/21/24 03:27
Glucose 119 mg/dl (70-99) H 12/21/24 03:27
Troponins
12/20/24 12/20/24 12/20/24
10:48 13:33 16:28
Troponin I 0.097 H* 1.030 H* D 5.530 H* D
12/20/24 12/21/24
22:54 03:27
Troponin I 4.720 H* 6.480 H* D
Vital Signs and I&O:
Vital Signs
Temp Pulse Resp BP Pulse Ox
98.1 F 53 16 98/54 91
12/21/24 07:19 12/21/24 10:00 12/21/24 07:19 12/21/24 10:00 12/21/24 07:19
Vital Signs
Temp Pulse Resp BP Pulse Ox
98.1 F 53 16 98/54 91
12/21/24 07:19 12/21/24 10:00 12/21/24 07:19 12/21/24 10:00 12/21/24 07:19
Intake & Output
12/19/24 12/20/24 12/21/24 12/22/24
06:59 06:59 06:59 06:59
Intake Total 960 / 960
Output Total 200 / 200
Balance 760 / 760
Physical Exam
Physical Exam
GEN: No distress, awake, Ox3
HEENT: supple, anicteric, mmm
LUNGS: CTA, no wheezes/rales
CV: Reg, S1/S2, 1/6 syst LSB, no gallop
ABD: soft, BS+, NT/ND
EXT: No edema
NEURO: Gross non-focal
SKIN: No rash
[2024-12-21] MEDS: LASIX 40 MG PO ×2 (10:41→21:17)
--- NOTE | 2024-12-21 10:57 | PTCARENOTE ---
Pt is AOx3, complains of CP 2/. Nitro gtt infusing per orders. Heparin gtt infusing per protocol. SB on tele monitor. Assist x1 OOB with cane. Call he within reach.
[2024-12-21 11:02] LABS: APTT 66.1 Sec (23.4-35.0)
[2024-12-21 11:16] LABS: Troponin I 6.550 ng/ml
[2024-12-21] MEDS: MORPHINE SULFATE 2 MG IV ×2 (15:37→23:09)
--- NOTE | 2024-12-21 16:06 | PTCARENOTE ---
@8870 pt complains of 4/10 chest pain, radiating from middle to left side. Dr Hampton made aware. EKG obtained. Per Dr Hampton, give PRN morphine as ordered. VSS. Will continue to monitor. Call he within reach.
[2024-12-21 17:24] LABS: Troponin I 4.760 ng/ml
[2024-12-21] MEDS: HEPARIN 25000 UNITS/250 ML IV (18:27)
[2024-12-21] MEDS: TYLENOL 650 MG PO (18:30)
[2024-12-21] MEDS: SENOKOT-S 1 TABLET PO (18:30)
[2024-12-21] MEDS: MIRALAX 17 GRAMS PO (18:30)
[2024-12-21 19:45] LABS: APTT 71.9 Sec (23.4-35.0)
[2024-12-21] MEDS: MAGNESIUM OXIDE 400 MG PO (21:18)
[2024-12-21] MEDS: ELAVIL 50 MG PO (22:14)
[2024-12-21] MEDS: AMBIEN 10 MG PO (22:14)
[2024-12-22] VITALS (30 sets, daily range): BP systolic 78–139; BP diastolic 59–85; BMI 41.0; BMI 40.8
--- NOTE | 2024-12-22 00:40 | PTCARENOTE ---
Pt c/o left side chest pain 4/10 and nausea. EKG done no changes. Nitro gtt increased, Morphine IV PRN and Compazine Iv given. Pt stated that pain getting easier. Rechecked with pt in 10 min., pt asleep at that time.
[2024-12-22] MEDS: TYLENOL 650 MG PO (01:13)
[2024-12-22 02:18] LABS: Hematocrit 34.6 % (37.0-47.0); Hemoglobin 11.0 g/dL (12.0-16.0); Mean Corp Hgb Conc. 31.8 g/dL (33.0-37.0); Mean Corpuscular Volume 92.8 fL (81.0-99.0); Platelet Count 190 10^3/uL (130-400); Red Cell Dist. Width 15.9 % (11.5-14.5)
[2024-12-22 02:25] LABS: APTT 106.7 Sec (23.4-35.0)
[2024-12-22 02:57] LABS: Blood Urea Nitrogen 15 mg/dl (7-17); Calcium 8.7 mg/dl (8.4-10.2); Carbon Dioxide 27 mmol/L (22-30); Chloride 103 mmol/L (98-107); Estimated Creatinine Clearance 85 ml/min; Glucose 124 mg/dl (70-99); Potassium 3.6 mmol/L (3.5-5.1); Sodium 136 mmol/L (135-145); eGFR > 60.00
[2024-12-22] MEDS: DETROL LA 4 MG PO (08:49)
[2024-12-22] MEDS: PACERONE 200 MG PO (08:49)
[2024-12-22] MEDS: PROZAC 10 MG PO (08:49)
[2024-12-22] MEDS: ASPIR LOW (ENTERIC COATED) 81 MG PO (08:49)
[2024-12-22] MEDS: NEURONTIN 100 MG PO ×2 (08:49→19:41)
[2024-12-22] MEDS: THERAGRAN 1 TABLET PO (08:49)
[2024-12-22] MEDS: LASIX 40 MG PO (08:49)
[2024-12-22] MEDS: ABILIFY 5 MG PO (08:49)
[2024-12-22] MEDS: VITAMIN D3 (cholecalciferol) 250 MCG PO (08:49)
[2024-12-22] MEDS: DELTASONE 40 MG PO (08:50)
[2024-12-22 09:05] LABS: APTT 107.7 Sec (23.4-35.0)
--- NOTE | 2024-12-22 10:20 | PTCARENOTE ---
sent to greens laborer in bed with nitro running at ordered rate by greens laborer RNs. in room.
--- NOTE | 2024-12-22 12:15 | PTCARENOTE ---
Received pt back from lab support service tech. Right radial site CDI. TR band in place. 95% on RA. Pt educated on restrictions and expected OOB time. at bedside. Call he within reach.
[2024-12-22 13:25] LABS: Troponin I 2.800 ng/ml
[2024-12-22 13:44] LABS: HDL Cholesterol 83 mg/dl; LDL Cholesterol, Calculated 40 mg/dl; Very Low Density Lipoprotein 10 mg/dl (0-30)
--- NOTE | 2024-12-22 14:36 | CM ---
spoke to pt in room, she is previndep, lives withher husb in a ranch home with no steps to enter. she has a cpap she uses at night. she denies any dc planning needs. plan is for dc to home when medically stable.
[2024-12-22] MEDS: NITROSTAT (SUBLINGUAL) 0.4 MG SL ×2 (16:20→16:32)
[2024-12-22] MEDS: SENOKOT-S 1 TABLET PO (16:21)
[2024-12-22] MEDS: LASIX 40 MG IV (16:22)
[2024-12-22] MEDS: IMDUR (EXTENDED RELEASE) 30 MG PO (16:41)
[2024-12-22] MEDS: MORPHINE SULFATE 2 MG IV (16:52)
--- NOTE | 2024-12-22 16:56 | ITS.CL.CATH ---
Photography Professor - Catheterization
Cardiac Catheterization
Procedure Report:
LEFT HEART CATHETERIZATION
Date of Procedure: December 22, 2024
Referring: Edouard Hampton MD
PROCEDURES:
1. Left heart catheterization, coronary angiogram.
2. Moderate sedation.
INDICATION: Concern for non-ST elevation DE
ACCESS: Right radial artery, 6Fr. sheath, under US guidance.
HEMODYNAMICS : (mmHg)
AO (s/d) : 131/73, mean of 97 mmHg
LVEDP : 35
No significant gradient across the aortic valve to suggest aortic stenosis.
CORONARY FINDINGS
Dominance: Right
Left Main Trunk (LMT): Large caliber vessel that gives rise to the LAD and LCx branches and is free of angiographic disease.
Left Anterior Descending Artery (LAD): Large caliber vessel that gives off 1 major diagonal branches as it courses along the anterior inter-ventricular groove before wrapping around the cardiac apex. There is mild diffuse atherosclerotic plaque.
Left Circumflex Artery (LCx): Large caliber vessel that gives off 1 major obtuse marginal (OM) branches as it courses along the atrio-ventricular (AV) groove. The left circumflex proper coursing along the atrioventricular groove has a 95 to 99%
stenosis however this is a very small caliber, less than 2 mm vessel and not a PCI target. This is likely culprit of presenting acute coronary syndrome
Right Coronary Artery (RCA): Large caliber dominant vessel that gives rise to the posterior descending artery (RPDA) and postero-lateral ventricular (RPLV) branches distally. There is mild diffuse atherosclerotic plaque
Ventriculogram: In single-plane DECKER projection, left ventricular systolic function is normal with estimated left ventricular ejection fraction of 60 to 65%.
SEDATION: 27 minutes of procedural sedation was utilized. IV Midazolam and IV Fentanyl were administered. An independent medical associate was present to assist with and help manage the patient's level of consciousness and physiologic status.
RADIATION SUMMARY: Fluoro Time (min): 4 point, Dose (mGy): 4 8, DAP (Gy.cm2) : 33.5
Closure Device: There were no immediate intra-procedural complications. The sheath was pulled in the lab support tech and a vascular-band applied to the right wrist for radial artery hemostasis using the patent hemostasis technique.
CONCLUSIONS
1. The left circumflex proper coursing along the atrioventricular groove has a 95 to 99% stenosis however this is a very small caliber, less than 2 mm vessel and not a PCI target. This is likely culprit of presenting acute coronary syndrome.
2. Significantly elevated LVEDP of 35 mmHg
RECOMMENDATIONS
1. Wean radial band per protocol. Monitor right hand perfusion and for bleeding from the radial site following removal of the vascular-band following trans-radial access.
2. Continue aggressive medical therapy and risk factor modification for secondary CAD prevention.
3. Hydrate with normal saline to mitigate the risk of contrast-induced acute kidney injury.
4. Continue daily aspirin along with Eliquis with high intensity statin and beta-jennie as tolerated. We will slowly work on optimizing antianginal medications.
5. Full echocardiogram to assess biventricular function and rule out any significant valvular abnormalities.
Copy to: Francesco Cabrera MD and Shawn Florez MD
Carleen Montana MD, [facility], [facility]
--- NOTE | 2024-12-22 17:17 | PTCARENOTE ---
@1615 pt complains of 4/10 chest pain that feels like pressure. Dr Montana made aware. New orders received. See MAR for details.
@1715 pt reports relief of chest pain, 0/10. Will continue to monitor.
--- NOTE | 2024-12-22 18:51 | W.PN.HOSP.TC ---
Addendum entered and electronically signed by Hannah Das MD 12/22/24 19:20:
I saw and evaluated the patient independently. I reviewed the resident�s note and agree with findings and plan as documented by Dr. Piper.
GENERAL: well developed, well nourished, female in no apparent distress
HEENT: NC/AT
HEART: regular rate and rhythm, +S1, +S2
LUNGS : clear to auscultation bilaterally
ABDOM: soft, nontender, nondistended, + bowel sounds
EXT: no cyanosis, clubbing, or edema
NEUROLOGIC: grossly intact
NSTEMI-- Troponin came down to 2.8, peaked at 6.55--s/p cardiac cath with no significant lesions found--medical management--apprec cards--CTA chest/ab/pelvis neg for dissection- Echo EF 60-65% G2DD, mod LVH no RWMA,
Persistent atrial fibrillation--s/p cardioversion x 4, ablation/PVI 1 month ago, and prior Watchman 2022-- Continue Eliquis- Continue amiodarone- Metoprolol as tolerated
Chronic diastolic heart failure/Chronic lymphedema- Continue Lasix
Essential hypertension--BP controlled
Hyperlipidemia- Continue statin
History of right middle cerebral artery CVA
History of positive AVIS- Has appointment with rheumatology next week--pt on prednisone
ADHD/Anxiety/depression- Continue amitriptyline, aripiprazole
code status-Full code
DVT proph� hep gtt
hopeful d/c in AM if cleared by cards
Original Note:
Today's Communication/Plan
-
-Continue on Aspirin
-Continue on Eliquis
-Continue on Metoprolol as tolerated
-Continue on Statin
-Work on optimizing antianginal medications
Assessment / Plan
Assessment / Plan
69-year-old female with complex PMHx including paroxysmal atrial fibrillation status post ablation November 2024, CVA, status post Watchman, hypertension, hyperlipidemia, obesity, and mild cognitive impairment presents with chest pain. The pain is
an ache in the center and right side of her chest. She also noticed some back pain with this. She woke up with the pain and it was moderate to severe. She was given sublingual nitroglycerin with little improvement. She was given morphine and it
did significantly improve. The pain continues to wax and wane. She has never had this pain before. She had an ablation about 4 weeks ago and had no symptoms related to that. She denies any shortness of breath. She denies any sweats or nausea.
She denies any orthopnea, PND, or edema. She rated her pain approximately 2 out of 10. Today, patient denies any nausea, vomiting, fever, diarrhea or constipation. She states that she is anxious to have her cardiac catheterization procedure.
NSTEMI
- Troponin came down to 2.800
- EKG shows sinus bradycardia no PATTI
- Echo EF 60-65% G2DD, mod LVH no RWMA,
- CT angio c/a/p neg for dissection
Persistent atrial fibrillation
s/p cardioversion x 4, ablation/PVI 1 month ago, and prior Watchman 2022
- Continue Eliquis
- Continue amiodarone
- Metoprolol as tolerated
Chronic diastolic heart failure
Chronic lymphedema
- Continue Lasix
Essential hypertension
BP controlled
Hyperlipidemia
- Continue statin
History of right middle cerebral artery CVA
History of positive AVIS
- Has appointment with rheumatology next week
pt on prednisone
ADHD
Anxiety/depression
- Continue amitriptyline, aripiprazole
Full code
DVT prophylaxis� hep gtt
Anticipated Discharge: Within 24 hours
Subjective/Interval History
-
Date of Service: December 22, 2024
69-year-old female with complex PMHx including paroxysmal atrial fibrillation status post ablation November 2024, CVA, status post Watchman, hypertension, hyperlipidemia, obesity, and mild cognitive impairment presents with chest pain. The pain is
an ache in the center and right side of her chest. She also noticed some back pain with this. She woke up with the pain and it was moderate to severe. She was given sublingual nitroglycerin with little improvement. She was given morphine and it
did significantly improve. The pain continues to wax and wane. She has never had this pain before. She had an ablation about 4 weeks ago and had no symptoms related to that. She denies any shortness of breath. She denies any sweats or nausea.
She denies any orthopnea, PND, or edema. She rated her pain approximately 2 out of 10. Today, patient denies any nausea, vomiting, fever, diarrhea or constipation. She states that she is anxious to have her cardiac catheterization procedure.
Objective Data
-
Labs:
Laboratory Results
12/22/24
08:37
APTT 107.7 H
Vital Signs:
Vital Signs
Temp Pulse Resp BP Pulse Ox
98.2 F 60 16 111/74 92
12/22/24 15:30 12/22/24 17:15 12/22/24 15:30 12/22/24 17:15 12/22/24 15:30
I&O
12/21/24 12/22/24 12/23/24
06:59 06:59 06:59
Intake Total 960 / 960
Output Total 200 / 200 1200 / 1200 1000 / 1000
Balance 760 / 760 -1200 / -1200 -1000 / -1000
Chest X Ray (12/20/2024): Low lung volumes with crowding of central/vascular markings. No pneumothorax.
Chest/Abdomen/Pelvis CTA (12/20/2024): No CTA evidence for a dissection, aneurysm, or intramural hematoma of the thoracic aorta or abdominal aorta.
Catheterization Lab Report (12/22/2024):1. The left circumflex proper coursing along the atrioventricular groove has a 95 to 99% stenosis however this is a very small caliber, less than 2 mm vessel and not a PCI target. This is likely culprit of
presenting acute coronary syndrome. 2. Significantly elevated LVEDP of 35 mmHg
Review of Systems
-
History Source: Patient
All other systems: Reviewed and negative
Physical Exam
-
General: Well Developed, No Apparent Distress and Comfortable
HEENT: Normocephalic and Atraumatic
Cardiac: Regular Rhythm and S1/S2
Breast: Deferred by me
GI: Soft and Nontender
Musculoskeletal: No Clubbing and No Edema
Skin: Warm and Dry
Neuro: AO x 3
Psych: Anxious
Data Reviewed
-
Total Time Spent with Patient (in minutes): 30
CT Scan: Report Reviewed by me
Medical Tests (Nuc Med, Echo etc): Report Reviewed by me
Labs: Labs Reviewed by me and Discussed with Physician
[2024-12-22] MEDS: ELIQUIS 5 MG PO (19:41)
[2024-12-22] MEDS: LIPITOR 40 MG PO (21:48)
[2024-12-22] MEDS: AMBIEN 10 MG PO (21:48)
[2024-12-22] MEDS: MAGNESIUM OXIDE 400 MG PO (21:48)
[2024-12-22] MEDS: ELAVIL 50 MG PO (21:48)
[2024-12-23] VITALS (11 sets, daily range): BP systolic 72–150; BP diastolic 61–88; BMI 40.1
--- NOTE | 2024-12-23 02:36 | PTCARENOTE ---
Pt NSR on monitor, VSS Pt denies pain or discomfort. Rt wrist post cath dsg CDI. Ambulates with x 1 assist and RW. Call he within reach
[2024-12-23] MEDS: DULCOLAX 10 MG RECTAL (03:57)
[2024-12-23 04:07] LABS: Hematocrit 38.6 % (37.0-47.0); Hemoglobin 12.4 g/dL (12.0-16.0); Mean Corp Hgb Conc. 32.1 g/dL (33.0-37.0); Mean Corpuscular Volume 91.0 fL (81.0-99.0); Nucleated Red Blood Cells % 0 %; Platelet Count 204 10^3/uL (130-400); Red Cell Dist. Width 15.9 % (11.5-14.5)
[2024-12-23 04:27] LABS: ALT (SGPT) 112 U/L (0-35); AST (SGOT) 59 U/L (14-36); Albumin 3.8 g/dl (3.5-5.0); Alkaline Phosphatase 162 U/L (38-126); Blood Urea Nitrogen 15 mg/dl (7-17); Calcium 9.2 mg/dl (8.4-10.2); Carbon Dioxide 30 mmol/L (22-30); Chloride 102 mmol/L (98-107); Estimated Creatinine Clearance 84 ml/min; Glucose 105 mg/dl (70-99); Magnesium 2.2 mg/dl (1.6-2.3); Potassium 3.6 mmol/L (3.5-5.1); Sodium 135 mmol/L (135-145); Total Protein 6.8 g/dl (6.3-8.2); eGFR > 60.00
[2024-12-23] MEDS: ASPIR LOW (ENTERIC COATED) 81 MG PO (10:01)
[2024-12-23] MEDS: THERAGRAN 1 TABLET PO (10:01)
[2024-12-23] MEDS: PROTONIX 40 MG PO (10:01)
[2024-12-23] MEDS: VITAMIN D3 (cholecalciferol) 250 MCG PO (10:01)
[2024-12-23] MEDS: ABILIFY 5 MG PO (10:01)
[2024-12-23] MEDS: IMDUR (EXTENDED RELEASE) 30 MG PO (10:01)
[2024-12-23] MEDS: PROZAC 10 MG PO (10:01)
[2024-12-23] MEDS: DELTASONE 30 MG PO (10:02)
[2024-12-23] MEDS: TOPROL XL 25 MG PO (10:02)
[2024-12-23] MEDS: LASIX 40 MG IV ×2 (10:02→17:50)
[2024-12-23] MEDS: PACERONE 200 MG PO ×2 (10:02→20:13)
[2024-12-23] MEDS: ELIQUIS 5 MG PO ×2 (10:02→20:13)
[2024-12-23] MEDS: FLUSH (NSS) 2 FLUSH IV ×3 (10:03→17:50)
[2024-12-23] MEDS: DETROL LA 4 MG PO (10:03)
[2024-12-23] MEDS: NEURONTIN 100 MG PO ×2 (10:03→20:13)
--- NOTE | 2024-12-23 10:59 | W.PN.CARDCBS ---
Addendum entered and electronically signed by Marina Wheeler PA-C 12/23/24 14:04:
Please add to below diagnoses: acute on chronic HFpEF
Addendum entered and electronically signed by Anum Kumar DO 12/23/24 11:38:
I saw and examined the patient.
The Concrete Batching Plant Operator's note was reviewed and I agree with the note.
Comment: Patient was seen and examined. This morning chest pain-free and overall feels okay however after she was initially seen she had a recurrence of atrial fibrillation
EN: No distress, awake, alert, oriented x3. Obese
HEENT: mmm
Lungs: Crackles B/L bases, no wheezes
CV: regular, S1/S2, no murmur
ABD: soft, BS+, NT/ND
EXT: Trace edema of bilateral lower extremity. Right radial c/d/i.
NEURO: Gross non-focal
Plan:
Non-STEMI with peak troponin 6.5
-Chest pain-free
- Reviewed cardiac catheterization 12/22/2024 with 95-99% stenosis of left circumflex proper, however was very small caliber vessel and not felt to be PCI target, so plan for medical management
-Currently on aspirin and Eliquis anticoagulation
-Continue Imdur 30 mg daily, Toprol XL 25 mg daily, atorvastatin 40 mg daily
-Cardiac rehab consult today and ambulation to reassess symptoms
History of PAF with recurrent AF this admission. History of PVI April 2023 and November 2024
-Will increase amiodarone to 200 mg twice daily and follow QTc
-Also has bradycardia so we will place Toprol on hold.
-Will need follow-up with EP
-Continue Eliquis anticoagulation
Heart failure with preserved ejection fraction with wedge on cath 35
- Continue diuresis with IV Lasix 40 mg twice daily. If accurate weight down 3 pounds overnight. Creatinine stable
- History of RODRIGUES with mildly elevated transaminases and elevated LFTs this admission. Follow
- Repeat labs in the morning
Right middle cerebral artery CVA, 07/2019, and two previous smaller CVAs, 2017, with residual left-sided weakness and expressive aphasia-now active issues this admission. Continue statin and Eliquis anticoagulation.
Will follow with you
Original Note:
Today's Communication / Plan
-
increase amiodarone to 200mg BID as back in afib. hold toprol given relative bradycardia
continue IV lasix
continue eliquis, asa
Impression / Plan
-
Assess:
chest pain/NSTEMI
Paroxysmal atrial fibrillation status post PVI x 04/2023, 11/2024
Status post Watchman 2022,
History of CVA
Hypertension
Hyperlipidemia
Chronic diastolic heart failure, preserved ejection fraction.
Chronic lymphedema with venous insufficiency.
Obstructive sleep apnea, compliant with CPAP.
Chronic kidney disease stage 3.
Hiatal hernia.
Diverticulosis.
Hemorrhoids.
Nonalcoholic steatohepatitis with mildly elevated transaminases.
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
Remote migraines.
Mild cognitive impairment.
Ambulatory dysfunction with history of falls.
Positive AVIS.
Echo 12/20/24: EF 60 to 65%, stage II diastolic dysfunction, mild to moderate MR, mild to moderate TR, PA pressure 51
CTA chest with no evidence for dissection aneurysm or hematoma.
Plan:
- Patient presented with chest pain and ruled in for NSTEMI, peak troponin 6.5
- Underwent cardiac catheterization 12/22/2024 with 95-99% stenosis of left circumflex proper, however was very small caliber vessel and not felt to be PCI target, so plan for medical management
- She also with history of PAF status post PVI 04/2023 and most recently 11/2024
- Since admission she has been in and out of atrial fibrillation. When in sinus, noted to be generally bradycardic.
- Will plan to increase amiodarone back from 200 mg daily to 200 mg twice daily for 1 to 2 weeks. follow QTc by EKG. Toprol placed on hold. Discussed with EP
- Continue aspirin, Eliquis
- Wedge by cath noted to be elevated at 35. Continue diuresis with IV Lasix 40 mg twice daily. If accurate weight down 3 pounds overnight. Creatinine stable
- LFTs downtrending, follow. ?passive congestion. Continue Lipitor
- Echo 12/20 with results as above
- d/w nursing
Progress Note - Electorate Officer
Subjective
Date of Service: December 23, 2024
Reports some chest discomfort which correlates with going back into atrial fibrillation
Objective
Labs:
12/23/24 03:50
12/23/24 03:50
Labs
Hgb 12.4 g/dL (12.0-16.0) 12/23/24 03:50
Hct 38.6 % (37.0-47.0) 12/23/24 03:50
Plt Count 204 10^3/uL (130-400) 12/23/24 03:50
APTT 107.7 Sec (23.4-35.0) H 12/22/24 08:37
Sodium 135 mmol/L (135-145) 12/23/24 03:50
Potassium 3.6 mmol/L (3.5-5.1) 12/23/24 03:50
BUN 15 mg/dl (7-17) 12/23/24 03:50
Creatinine 0.7 mg/dL (0.6-1.0) 12/23/24 03:50
Glucose 105 mg/dl (70-99) H 12/23/24 03:50
Troponins
12/20/24 12/20/24 12/20/24
10:48 13:33 16:28
Troponin I 0.097 H* 1.030 H* D 5.530 H* D
12/20/24 12/21/2412/21/25
22:54 03:27 10:37
Troponin I 4.720 H* 6.480 H* D 6.550 H*
12/21/24 12/22/24
16:47 12:40
Troponin I 4.760 H* D 2.800 H*
Vital Signs and I&O:
Vital Signs
Temp Pulse Resp BP Pulse Ox
97.8 F 54 20 112/64 91
12/23/24 08:11 12/23/24 08:11 12/23/24 08:11 12/23/24 08:11 12/23/24 08:11
Vital Signs
Temp Pulse Resp BP Pulse Ox
97.8 F 54 20 112/64 91
12/23/24 08:11 12/23/24 08:11 12/23/24 08:11 12/23/24 08:11 12/23/24 08:11
Intake & Output
12/21/24 12/22/24 12/23/24 12/24/24
07:59 07:59 07:59 07:59
Intake Total 960 / 960 500 / 500
Output Total 200 / 200 1200 / 1200 1500 / 1500 525 / 525
Balance 760 / 760 -1200 / -1200 -1000 / -1000 -525 / -525
Physical Exam
Physical Exam
GEN: No distress, awake, alert, oriented x3. Obese
HEENT: supple, anicteric, mmm, EOMI
LUNGS: Crackles B/L bases, no wheezes
CV: Irreg, S1/S2, no murmur
ABD: soft, BS+, NT/ND
EXT: No cyanosis, clubbing. Trace edema of bilateral lower extremity
NEURO: Gross non-focal
SKIN: Warm, pink, dry. No rash. R wrist site c/d/i.
[2024-12-23] MEDS: COMPAZINE 5 MG IV (11:17)
[2024-12-23] MEDS: KCL 40 MEQ PO (11:58)
--- NOTE | 2024-12-23 13:53 | PN.CDI ---
CDI
- -
CDI:
Physician Documentation Request
Admit Date: 12/20/24 16:39
Dear Cardiology,
Clinical Indicators:
Patient admitted with NSTEMI; s/p LHC1.
PMH includes Chronic HFpEF
12/23 Cardiology PN, 'Heart failure with preserved ejection fraction with wedge on cath 35... Continue diuresis with IV Lasix 40 mg twice daily.'
Please provide further specificity regarding the most likely acuity of CHF you are evaluating, treating or monitoring.
Acute on chronic HFpEF
Chronic HFpEF only
Other, please specify
Use of terms such as suspected, likely, concern for, or probable (associated with a specific diagnosis that is being evaluated, monitored, or treated as if it exists) are acceptable and can be coded in the inpatient setting, when documented at the
time of discharge.
Thank you,
ELSA Lambert RN
CDI Specialist
Please use your independent medical judgment in providing your response.
--- NOTE | 2024-12-23 15:52 | W.PN.HOSP.TC ---
Addendum entered and electronically signed by Hannah Das MD 12/23/24 21:32:
I saw and evaluated the patient independently. I reviewed and discussed the resident�s note and agree with findings and plan as documented by Dr. Piper.
GENERAL: well developed, well nourished, female in no apparent distress
HEENT: NC/AT
HEART: irreg irreg
LUNGS : clear to auscultation bilaterally
ABDOM: soft, nontender, nondistended, + bowel sounds
EXT: no cyanosis, clubbing, or edema
NEUROLOGIC: grossly intact
NSTEMI-- Troponin came down, peaked at 6.55--s/p cardiac cath with no significant lesions found amenable to intervention--medical management--apprec cards--CTA chest/ab/pelvis neg for dissection- Echo EF 60-65% G2DD, mod LVH no RWMA,
Persistent atrial fibrillation--s/p cardioversion x 4, ablation/PVI 1 month ago, and prior Watchman 2022-- Continue Eliquis- Continue amiodarone- Metoprolol as tolerated--back in afib today--amio being increased
Chronic diastolic heart failure/Chronic lymphedema- Continue Lasix
Essential hypertension--BP controlled
Hyperlipidemia- Continue statin
History of right middle cerebral artery CVA
History of positive AVIS- Has appointment with rheumatology next week--pt on prednisone
ADHD/Anxiety/depression- Continue amitriptyline, aripiprazole
code status-Full code
DVT proph
hopeful d/c in AM if cleared by cards
Original Note:
Today's Communication/Plan
-
Increase amiodarone to 200mg BID because patient is back in A-Fib.
Hold metoprol given relative bradycardia
Continue IV furosemide
Continue Eliquis, asa
Assessment / Plan
Assessment / Plan
69-year-old female with complex PMHx including paroxysmal atrial fibrillation status post ablation November 2024, CVA, status post Watchman, hypertension, hyperlipidemia, obesity, and mild cognitive impairment presents with chest pain. The pain is
an ache in the center and right side of her chest. She also noticed some back pain with this. She woke up with the pain and it was moderate to severe. She was given sublingual nitroglycerin with little improvement. She was given morphine and it
did significantly improve. The pain continues to wax and wane. She has never had this pain before. She had an ablation about 4 weeks ago and had no symptoms related to that. She denies any shortness of breath. She denies any sweats or nausea.
She denies any orthopnea, PND, or edema. She rated her pain approximately 2 out of 10. Today patient denies any nausea, vomiting, fever, diarrhea or constipation. She was complaining of left arm pain from her cardiac catheterization procedure
yesterday. Patient was given Imdur 30 mg for chest pain management. She would also like to talk about the results of her procedure and what it means moving forward with medical management. Around 12 pm today, patient went into Atrial Fibrillation
and an EKG was done. She reported chest pain after this incident. Her Amiodarone dose was increased to control this A-Fib w/ RVR.
Plan:
#Non-STEMI with peak troponin 6.5
-Chest pain-free
-Currently on aspirin and Eliquis anticoagulation
-Continue Imdur 30 mg daily, Toprol XL 25 mg daily, atorvastatin 40 mg daily
-Cardiac rehab consult today and ambulation to reassess symptoms
#History of PAF with recurrent AF this admission. History of PVI April 2023 and November 2024
-Will increase amiodarone to 200 mg twice daily and follow QTc
-Also has bradycardia so we will place Toprol on hold.
-Will need follow-up with EP
-Continue Eliquis anticoagulation
#Heart failure with preserved ejection fraction with wedge on cath 35
- Continue diuresis with IV Lasix 40 mg twice daily. If accurate weight down 3 pounds overnight. Creatinine stable
- History of RODRIGUES with mildly elevated transaminases and elevated LFTs this admission. Follow
- Repeat labs in the morning
#Right middle cerebral artery CVA, 07/2019, and two previous smaller CVAs, 2017
-With residual left-sided weakness and expressive aphasia-now active issues this admission.
- Continue statin and Eliquis anticoagulation.
Anticipated Discharge: > 48 hours
Subjective/Interval History
-
Date of Service: December 23, 2024
69-year-old female with complex PMHx including paroxysmal atrial fibrillation status post ablation November 2024, CVA, status post Watchman, hypertension, hyperlipidemia, obesity, and mild cognitive impairment presents with chest pain. The pain is
an ache in the center and right side of her chest. She also noticed some back pain with this. She woke up with the pain and it was moderate to severe. She was given sublingual nitroglycerin with little improvement. She was given morphine and it
did significantly improve. The pain continues to wax and wane. She has never had this pain before. She had an ablation about 4 weeks ago and had no symptoms related to that. She denies any shortness of breath. She denies any sweats or nausea.
She denies any orthopnea, PND, or edema. She rated her pain approximately 2 out of 10. Today patient denies any nausea, vomiting, fever, diarrhea or constipation. She was complaining of left arm pain from her cardiac catheterization procedure
yesterday. Patient was given Imdur 30 mg for chest pain management. She would also like to talk about the results of her procedure and what it means moving forward with medical management. Around 12 pm today, patient went into Atrial Fibrillation
and an EKG was done. She reported chest pain after this incident. Her Amiodarone dose was increased to control this A-Fib w/ RVR.
Objective Data
-
Labs:
Laboratory Results
12/23/24
03:50
WBC 10.1
Hgb 12.4
Hct 38.6
Plt Count 204
Sodium 135
Potassium 3.6
Chloride 102
Carbon Dioxide 30
BUN 15
Creatinine 0.7
Glucose 105 H
Calcium 9.2
Total Bilirubin 1.0
AST 59 H
ALT 112 H
Alkaline Phosphatase 162 H
Vital Signs:
Vital Signs
Temp Pulse Resp BP Pulse Ox
97.7 F 116 20 112/69 94
12/23/24 15:11 12/23/24 12:00 12/23/24 15:11 12/23/24 11:21 12/23/24 15:11
I&O
12/22/24 12/23/24 12/24/24
06:59 06:59 06:59
Intake Total 500 / 500 720 / 720
Output Total 1200 / 1200 1500 / 1500 525 / 525
Balance -1200 / -1200 -1000 / -1000 195 / 195
EKG (12/23/2024): Atrial Fibrillation with RVR Inferior Infarct with marked ST abnormality, and possible lateral subendocardial injury.
cardiac catheterization 12/22/2024 with 95-99% stenosis of left circumflex proper, however was very small caliber vessel and not felt to be PCI
Review of Systems
-
History Source: Patient
All other systems: Reviewed and negative
Cardiac: Reports Chest Pain
Psych: Reports Anxious
Physical Exam
-
General: Well Developed, No Apparent Distress and Comfortable
HEENT: Normocephalic and Atraumatic
Respiratory: Clear to Auscultation
Cardiac: Regular Rhythm and S1/S2
Breast: Deferred by me
GI: Soft and Nontender
Musculoskeletal: No Clubbing and No Edema
Skin: Warm and Dry
Neuro: AO x 3
Psych: Anxious
Data Reviewed
-
Total Time Spent with Patient (in minutes): 30
CT Scan: Report Reviewed by me
Medical Tests (Nuc Med, Echo etc): Report Reviewed by me
Labs: Labs Reviewed by me and Discussed with Physician
[2024-12-23] MEDS: MORPHINE SULFATE 2 MG IV (17:50)
[2024-12-23] MEDS: SENOKOT-S 1 TABLET PO (20:13)
[2024-12-23] MEDS: LIPITOR 40 MG PO (21:07)
[2024-12-23] MEDS: MAGNESIUM OXIDE 400 MG PO (21:07)
[2024-12-23] MEDS: ELAVIL 50 MG PO (21:07)
[2024-12-23] MEDS: AMBIEN 10 MG PO (21:07)
[2024-12-23] MEDS: TYLENOL 650 MG PO (21:12)
--- NOTE | 2024-12-23 22:54 | PTCARENOTE ---
Received patient at change of shift. SR on the monitor, HR in the 60s. R radial dressing CDI. Pt complained of constipation, PRN Senna administered. Pt complained of a 5/10 headache, PRN Tylenol administered as per order, see documentation. Call
he within reach.
[2024-12-24] VITALS (32 sets, daily range): BP systolic 98–167; BP diastolic 61–113; BMI 40.1
[2024-12-24 03:09] LABS: Hematocrit 39.7 % (37.0-47.0); Hemoglobin 12.7 g/dL (12.0-16.0); Mean Corp Hgb Conc. 32.0 g/dL (33.0-37.0); Mean Corpuscular Volume 91.7 fL (81.0-99.0); Nucleated Red Blood Cells % 0 %; Platelet Count 202 10^3/uL (130-400); Red Cell Dist. Width 15.8 % (11.5-14.5)
[2024-12-24 03:42] LABS: ALT (SGPT) 90 U/L (0-35); AST (SGOT) 46 U/L (14-36); Albumin 3.7 g/dl (3.5-5.0); Alkaline Phosphatase 145 U/L (38-126); Blood Urea Nitrogen 18 mg/dl (7-17); Calcium 8.9 mg/dl (8.4-10.2); Carbon Dioxide 29 mmol/L (22-30); Chloride 102 mmol/L (98-107); Estimated Creatinine Clearance 73 ml/min; Glucose 94 mg/dl (70-99); Magnesium 2.2 mg/dl (1.6-2.3); Potassium 3.8 mmol/L (3.5-5.1); Sodium 134 mmol/L (135-145); Total Protein 6.7 g/dl (6.3-8.2); eGFR > 60.00
[2024-12-24] MEDS: NITROSTAT (SUBLINGUAL) 0.4 MG SL ×5 (04:29→20:15)
[2024-12-24] MEDS: MORPHINE SULFATE 2 MG IV ×2 (04:47→20:12)
[2024-12-24] MEDS: IMDUR (EXTENDED RELEASE) 30 MG PO (04:55)
--- NOTE | 2024-12-24 05:00 | W.PN.UPDATE ---
Update Note
Progress Note Update
~4:40 Patient seen for chest pain, radiating to b/l arms, and back, pain rated at 5 out of 10. Given 3 doses of sublingual Nitro without any relief. EKG shows afib, HR 100. Given Morphine 2 mg IV x 1 with no relief. Ordered repeat CBC, CMP, mag and
troponin. Repeat EKG showed NSR HR 78.
TT'd, station mechanic Cardiology, Dr. Florez, reviewed events, sent EKGs, appreciate his review. Imdur 30 mg PO daily dose given early.
~ 5:10 Pt stated chest pain is slowly resolving, rates at 4 out of 10. Patient appears more comfortable, respirations unlabored, resting in bed.
~ 5: 40 Pt sleeping, appears comfortable.
[2024-12-24 05:01] LABS: Hematocrit 40.3 % (37.0-47.0); Hemoglobin 13.4 g/dL (12.0-16.0); Mean Corp Hgb Conc. 33.3 g/dL (33.0-37.0); Mean Corpuscular Volume 88.4 fL (81.0-99.0); Platelet Count 239 10^3/uL (130-400); Red Cell Dist. Width 15.8 % (11.5-14.5)
--- NOTE | 2024-12-24 05:24 | PTCARENOTE ---
Patient rang her call he at 04:20 and complained of 5/10 chest pain. BP 167/97. patient states pain is achy and heavy across her whole chest and her arms are feeling 'weird,' like heavy and tingling. EKG obtained and ONCOLOGY SPECIALIST Christelle Herzog made aware. SL Nitro
x3, BP tolerated, chest pain still a 5/10. PRN Morphine administered as per order, see MAR. Morning Imdur dose administered earlier as per Activities Coordinator.
05:20 Pt now with 4/10 chest pain and reporting her arms feel 'less tingly.' ONCOLOGY SPECIALIST updated. SR HR in the 60s. BP 129/82.
[2024-12-24 05:42] LABS: Troponin I 1.990 ng/ml
[2024-12-24 05:53] LABS: ALT (SGPT) 95 U/L (0-35); AST (SGOT) 52 U/L (14-36); Albumin 3.9 g/dl (3.5-5.0); Alkaline Phosphatase 159 U/L (38-126); Blood Urea Nitrogen 18 mg/dl (7-17); Calcium 9.2 mg/dl (8.4-10.2); Carbon Dioxide 30 mmol/L (22-30); Chloride 100 mmol/L (98-107); Estimated Creatinine Clearance 73 ml/min; Glucose 93 mg/dl (70-99); Magnesium 2.3 mg/dl (1.6-2.3); Potassium 3.7 mmol/L (3.5-5.1); Sodium 134 mmol/L (135-145); Total Protein 7.1 g/dl (6.3-8.2); eGFR > 60.00
[2024-12-24] MEDS: DELTASONE 30 MG PO (09:27)
[2024-12-24] MEDS: NEURONTIN 100 MG PO ×2 (09:27→19:31)
[2024-12-24] MEDS: DETROL LA 4 MG PO (09:27)
[2024-12-24] MEDS: PACERONE 200 MG PO ×2 (09:27→19:30)
[2024-12-24] MEDS: VITAMIN D3 (cholecalciferol) 250 MCG PO (09:27)
[2024-12-24] MEDS: ELIQUIS 5 MG PO ×2 (09:27→19:31)
[2024-12-24] MEDS: PROTONIX 40 MG PO (09:27)
[2024-12-24] MEDS: ASPIR LOW (ENTERIC COATED) 81 MG PO (09:29)
[2024-12-24] MEDS: LASIX 40 MG IV ×2 (09:30→17:41)
[2024-12-24] MEDS: FLUSH (NSS) 2 FLUSH IV ×2 (09:30→17:41)
[2024-12-24] MEDS: PROZAC 10 MG PO (09:34)
[2024-12-24] MEDS: ABILIFY 5 MG PO (09:34)
[2024-12-24] MEDS: THERAGRAN 1 TABLET PO (09:34)
[2024-12-24] MEDS: FEOSOL 325 MG PO (09:37)
--- NOTE | 2024-12-24 11:14 | W.PN.CARDCBS ---
Today's Communication / Plan
-
continues with PAF
continue amiodarone 200mg BID
lopressor 25mg Q6H
continue eliquis
continue IV lasix
ambulate as able
Impression / Plan
-
Assess:
chest pain/NSTEMI
Paroxysmal atrial fibrillation status post PVI x 04/2023, 11/2024
Status post Watchman 2022,
History of CVA
Hypertension
Hyperlipidemia
Chronic diastolic heart failure, preserved ejection fraction.
Chronic lymphedema with venous insufficiency.
Obstructive sleep apnea, compliant with CPAP.
Chronic kidney disease stage 3.
Hiatal hernia.
Diverticulosis.
Hemorrhoids.
Nonalcoholic steatohepatitis with mildly elevated transaminases.
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
Remote migraines.
Mild cognitive impairment.
Ambulatory dysfunction with history of falls.
Positive AVIS.
Echo 12/20/24: EF 60 to 65%, stage II diastolic dysfunction, mild to moderate MR, mild to moderate TR, PA pressure 51
CTA chest with no evidence for dissection aneurysm or hematoma.
Plan:
- Patient presented with chest pain and ruled in for NSTEMI, peak troponin 6.5
- Underwent cardiac catheterization 12/22/2024 with 95-99% stenosis of left circumflex proper, however was very small caliber vessel and not felt to be PCI target, so plan for medical management
-Overnight again had episode of discomfort across her chest with heaviness and numbness in both arms with some radiation to her back. She was given sublingual nitro x 3 without improvement. She then received dose of IV morphine with improvement
and was able to sleep
- each time patient has had recurrence of CP, has been in afib, ? causing ischemia to small circ. ?anxiety possibly also contributing. EKG 12/24 appears to be improving and trop continues to trend down.
- Echo 12/20 with results as above, EF preserved
- She also with history of PAF status post PVI 04/2023 and most recently 11/2024
- Since admission she has been in and out of atrial fibrillation. When in sinus, noted to be generally bradycardic.
- increased amiodarone back from 200 mg daily to 200 mg twice daily for 1 to 2 weeks. follow QTc by EKG. placed on po lopressor 25mg Q6H for today, plan to transition to toprol in AM. was on 100mg BID prior to admission.
- Continue aspirin, Eliquis. patient reportedly concerned about cost of OAC, CM to review with patient
- Wedge by cath noted to be elevated at 35. Continue diuresis with IV Lasix 40 mg twice daily. weight stable overnight if accurate. Creatinine stable
- follow LFTs. Continue Lipitor
- ambulate
- d/w nursing
Progress Note - Certified Dialysis Technician
Subjective
Date of Service: December 24, 2024
Had episode of chest discomfort across full chest at 4 AM with numbness and heaviness in both arms and radiation ot her back
Objective
Labs:
12/24/24 04:49
12/24/24 04:49
Labs
Hgb 13.4 g/dL (12.0-16.0) 12/24/24 04:49
Hct 40.3 % (37.0-47.0) 12/24/24 04:49
Plt Count 239 10^3/uL (130-400) 12/24/24 04:49
APTT 107.7 Sec (23.4-35.0) H 12/22/24 08:37
Sodium 134 mmol/L (135-145) L 12/24/24 04:49
Potassium 3.7 mmol/L (3.5-5.1) 12/24/24 04:49
BUN 18 mg/dl (7-17) H 12/24/24 04:49
Creatinine 0.8 mg/dL (0.6-1.0) 12/24/24 04:49
Glucose 93 mg/dl (70-99) 12/24/24 04:49
Troponins
12/21/24 12/21/24 12/22/24
10:37 16:47 12:40
Troponin I 6.550 H* 4.760 H* D 2.800 H*
12/24/24
04:49
Troponin I 1.990 H*
Vital Signs and I&O:
Vital Signs
Temp Pulse Resp BP Pulse Ox
98 F 62 20 107/64 95
12/24/24 10:58 12/24/24 08:00 12/24/24 10:58 12/24/24 07:00 12/24/24 10:58
Vital Signs
Temp Pulse Resp BP Pulse Ox
98 F 62 20 107/64 95
12/24/24 10:58 12/24/24 08:00 12/24/24 10:58 12/24/24 07:00 12/24/24 10:58
Intake & Output
12/22/24 12/23/24 12/24/24 12/25/24
07:59 07:59 07:59 07:59
Intake Total 500 / 500 720 / 720
Output Total 1200 / 1200 1500 / 1500 525 / 525
Balance -1200 / -1200 -1000 / -1000 195 / 195
Physical Exam
Physical Exam
GEN: No distress, awake, alert, oriented x3. Sitting in chair. Obese
HEENT: supple, anicteric, mmm, EOMI
LUNGS: CTA bilaterally, no wheezes/rales
CV: Irreg, S1/S2, 1/6 murmur
ABD: soft, BS+, NT/ND
EXT: No cyanosis, clubbing. trace edema of B/L LE
NEURO: Gross non-focal
SKIN: Warm, pink, dry. No rash
[2024-12-24] MEDS: LOPRESSOR 25 MG PO ×3 (13:35→23:30)
--- NOTE | 2024-12-24 14:08 | W.PN.HOSP.TC ---
Addendum entered and electronically signed by Hannah Das MD 12/24/24 16:54:
I saw and evaluated the patient independently. I reviewed and discussed the resident�s note and agree with findings and plan as documented by Dr. Piper.
GENERAL: well developed, well nourished, female in no apparent distress
HEENT: NC/AT
HEART: irreg irreg
LUNGS : clear to auscultation bilaterally
ABDOM: soft, nontender, nondistended, + bowel sounds
EXT: no cyanosis, clubbing, or edema
NEUROLOGIC: grossly intact
NSTEMI-- Troponin came down, peaked at 6.55--s/p cardiac cath with no significant lesions found amenable to intervention--medical management--had chest pain again overnight, unclear if afib triggers or chest pain triggers afib?----apprec cards--CTA
chest/ab/pelvis neg for dissection- Echo EF 60-65% G2DD, mod LVH no RWMA--consideration for increasing Imdur
Persistent atrial fibrillation (more like paroxysmal since has had periods of sinus rhythm)--s/p cardioversion x 4, ablation/PVI 1 month ago, and prior Watchman 2022-- Continue Eliquis- Continue amiodarone--Metoprolol as tolerated--back in
afib--amio being increased
Chronic diastolic heart failure/Chronic lymphedema- Continue Lasix
Essential hypertension--BP controlled
Hyperlipidemia- Continue statin
History of right middle cerebral artery CVA
History of positive AVIS- Has appointment with rheumatology next week--pt on prednisone
ADHD/Anxiety/depression- Continue amitriptyline, aripiprazole
code status-Full code
DVT proph
Original Note:
Today's Communication/Plan
-
Continue amiodarone 200 mg twice daily
Start Lopressor 25 mg every 6 hours
Continue Eliquis continue IV Lasix 40 mg twice daily
Continue Lipitor
Ambulate as able
Recheck labs in a.m.
Assessment / Plan
Assessment / Plan
Patient is a 69-year-old female presenting to the ED on 12/20/2024 for acute NSTEMI. Her symptoms were treated and a cardiac cath was done and it was decided based upon its findings that she would not be managed surgically but rather through
medical management. Around 4 AM this morning, she complained of pain radiating to bilateral arms and back. She rated the pain a 5 out of 10. Patient given 3 doses of sublingual nitrogen without any relief. At this point EKG showed atrial
fibrillation, heart rate 100. She was given morphine 2 mg IV x 1 with still no relief. A repeat CBC CMP magnesium and troponin were ordered repeat EKG showed normal sinus rhythm with heart rate of 78. Cardiology consult was placed, Dr. Florez
reviewed events, stat EKGs. She was started on Imdur 30 mg per oral daily dosage. Cardiology wanted her 8 AM dose given earlier, and then they will recheck on patient this morning. Around 5 AM patient stated her chest pain was slowly resolving
she is rating the pain a 4 out of 10. Patient appears more comfortable no labored breathing, she is resting in her bed. Patient appears to be comfortable. This morning patient denied any nausea, vomiting, fever, diarrhea or constipation. She
seemed anxious about her prognosis and ask when she would be discharged.
Plan:
#History of PAF with recurrent AF this admission. History of PVI April 2023 and November 2024
Continue amiodarone 200 mg twice daily follow QTc by EKG
Follow QTc by EKG
Lopressor 25 mg every 6 hours
Plan to transition to metoprolol in a.m. Was on 100 mg twice daily prior to admission.
Continue Eliquis
Continue IV Lasix 40 mg twice daily. Weight stable overnight if accurate. Creatinine stable.
Follow-up LFTs. Continue Lipitor
Ambulate as able
#Non-STEMI with peak troponin 6.5
EKG 12/24 appears to be improving and troponins continue to trend downwards.
#Heart failure with preserved ejection fraction with wedge on cath 35
- Continue diuresis with IV Lasix 40 mg twice daily. If accurate weight down 3 pounds overnight. Creatinine stable
- History of RODRIGUES with mildly elevated transaminases and elevated LFTs this admission. Follow
- Repeat labs in the morning
#Right middle cerebral artery CVA, 07/2019, and two previous smaller CVAs, 2017
-With residual left-sided weakness and expressive aphasia-now active issues this admission.
- Continue statin and Eliquis anticoagulation.
Anticipated Discharge: 24 - 48 hours
Subjective/Interval History
-
Date of Service: December 24, 2024
Patient is a 69-year-old female presenting to the ED on 12/20/2024 for acute NSTEMI. Her symptoms were treated and a cardiac cath was done and it was decided based upon its findings that she would not be managed surgically but rather through
medical management. Around 4 AM this morning, she complained of pain radiating to bilateral arms and back. She rated the pain a 5 out of 10. Patient given 3 doses of sublingual nitrogen without any relief. At this point EKG showed atrial
fibrillation, heart rate 100. She was given morphine 2 mg IV x 1 with still no relief. A repeat CBC CMP magnesium and troponin were ordered repeat EKG showed normal sinus rhythm with heart rate of 78. Cardiology consult was placed, Dr. Florez
reviewed events, stat EKGs. She was started on on Imdur 30 mg per oral daily dosage. Cardiology wanted her 8 AM dose given earlier, and then the recheck on patient this morning. Around 5 AM patient stated her chest pain was slowly resolving she
is rating the pain a 4 out of 10. Patient appears more comfortable no labored breathing, she is resting in her bed. Patient appears to be comfortable. This morning patient denied any nausea, vomiting, fever, diarrhea or constipation. She seemed
anxious about her prognosis and ask when she would be discharged.
Objective Data
-
Labs:
Laboratory Results
12/24/24 12/24/24
02:42 04:49
WBC 9.9 13.3 H
Hgb 12.7 13.4
Hct 39.7 40.3
Plt Count 202 239
Sodium 134 L 134 L
Potassium 3.8 3.7
Chloride 102 100
Carbon Dioxide 29 30
BUN 18 H 18 H
Creatinine 0.8 0.8
Glucose 94 93
Calcium 8.9 9.2
Total Bilirubin 1.1 1.2
AST 46 H 52 H
ALT 90 H 95 H
Alkaline Phosphatase 145 H 159 H
Vital Signs:
Vital Signs
Temp Pulse Resp BP Pulse Ox
98 F 114 20 103/69 95
12/24/24 10:58 12/24/24 13:35 12/24/24 10:58 12/24/24 13:35 12/24/24 10:58
I&O
12/23/24 12/24/24 12/25/24
06:59 06:59 06:59
Intake Total 500 / 500 720 / 720
Output Total 1500 / 1500 525 / 525
Balance -1000 / -1000 195 / 195
Recent EKG was done 12/24/2024: Impression: sinus rhythm with first-degree AV block. Inferior infarct. T wave abnormality. Prolonged QT.
Review of Systems
-
History Source: Patient
All other systems: Reviewed and negative
Physical Exam
-
General: Well Developed, Well Nourished, No Apparent Distress and Comfortable
HEENT: Normocephalic and Atraumatic
Respiratory: Clear to Auscultation
Cardiac: Other (Irregular irregular)
Breast: Deferred by me
GI: Soft, Nontender, Nondistended and Normal Bowel Sounds
Musculoskeletal: No Clubbing, No Cyanosis and No Edema
Neuro: AO x 3
Data Reviewed
-
Medical Tests (Nuc Med, Echo etc): Report Reviewed by me
Labs: Labs Reviewed by me and Discussed with Physician
--- NOTE | 2024-12-24 15:26 | CM ---
spoke to pt in room, she does not have a perscript plan. she uses [facility], however, she has an appt with a medicare part D represtivie to sign up for a perscrip plan. she has never used the eliquis 30 day free coupon, one was placed in her red dc
folder. pt is agreeable to staying on eliquis knowing she will have a perscrip plan starting in mar.
[2024-12-24] MEDS: TYLENOL 650 MG PO (17:48)
[2024-12-24] MEDS: MAALOX 30 ML PO (21:16)
[2024-12-24] MEDS: PROTONIX IV 40 MG IV (21:17)
[2024-12-24] MEDS: NSS (PRESERVATIVE FREE) 10 ML IV (21:17)
[2024-12-24] MEDS: ELAVIL 50 MG PO (21:23)
[2024-12-24] MEDS: MAGNESIUM OXIDE 400 MG PO (21:23)
[2024-12-24] MEDS: AMBIEN 10 MG PO (21:23)
[2024-12-24] MEDS: LIPITOR 40 MG PO (21:23)
[2024-12-24] MEDS: MORPHINE SULFATE 1 MG IV (21:27)
--- NOTE | 2024-12-24 23:33 | PTCARENOTE ---
Received patient at change of shift. SR on the monitor, HR in the 60s. Patient complaining of 4/10 CP radiating down her left arm. Patient put on 2L nasal cannula. EKG and vital signs obtained, SL nitro x3, PRN IV Morphine administered as per order,
see MAR. DRESSING ROOM PORTER Christelle Herzog and MARCIA Bass notified and came to see pt.
Pain 3/10 following Nitro and Morphine. CXR ordered and obtained. Protonix and Maalox ordered and administered. Another dose of Morphine administered.
Pain reassessed and pt asleep in bed.
[2024-12-25] VITALS (11 sets, daily range): BP systolic 94–138; BP diastolic 58–78; BMI 40.2
[2024-12-25 04:22] LABS: Hematocrit 39.2 % (37.0-47.0); Hemoglobin 12.9 g/dL (12.0-16.0); Mean Corp Hgb Conc. 32.9 g/dL (33.0-37.0); Mean Corpuscular Volume 92.0 fL (81.0-99.0); Nucleated Red Blood Cells % 0 %; Platelet Count 220 10^3/uL (130-400); Red Cell Dist. Width 16.0 % (11.5-14.5)
[2024-12-25 04:38] LABS: ALT (SGPT) 72 U/L (0-35); AST (SGOT) 34 U/L (14-36); Albumin 3.7 g/dl (3.5-5.0); Alkaline Phosphatase 146 U/L (38-126); Blood Urea Nitrogen 20 mg/dl (7-17); Calcium 8.9 mg/dl (8.4-10.2); Carbon Dioxide 32 mmol/L (22-30); Chloride 101 mmol/L (98-107); Estimated Creatinine Clearance 65 ml/min; Glucose 100 mg/dl (70-99); Magnesium 2.4 mg/dl (1.6-2.3); Potassium 3.9 mmol/L (3.5-5.1); Sodium 139 mmol/L (135-145); Total Protein 6.5 g/dl (6.3-8.2); eGFR > 60.00
--- NOTE | 2024-12-25 06:06 | W.PN.HOSP.TC ---
Addendum entered and electronically signed by Hannah Das MD 12/25/24 16:35:
I saw and evaluated the patient independently. I reviewed and discussed the resident�s note and agree with findings and plan as documented by Dr. Piper.
GENERAL: well developed, well nourished, female in no apparent distress
HEENT: NC/AT
HEART: irreg irreg
LUNGS : clear to auscultation bilaterally
ABDOM: soft, nontender, nondistended, + bowel sounds
EXT: no cyanosis, clubbing, or edema
NEUROLOGIC: grossly intact
NSTEMI-- Troponin came down, peaked at 6.55--s/p cardiac cath with no significant lesions found amenable to intervention--medical management--had chest pain again overnight (curiously this happens at night...)----apprec cards--CTA chest/ab/pelvis
neg for dissection- Echo EF 60-65% G2DD, mod LVH no RWMA--consideration for increasing Imdur for chronic angina symptoms
Persistent atrial fibrillation (more like paroxysmal since has had periods of sinus rhythm)--s/p cardioversion x 4, ablation/PVI 1 month ago, and prior Watchman 2022-- Continue Eliquis- Continue amiodarone--Metoprolol as tolerated--back in
afib--amio being increased
Chronic diastolic heart failure/Chronic lymphedema- Continue Lasix
Essential hypertension--BP controlled
Hyperlipidemia- Continue statin
History of right middle cerebral artery CVA
History of positive AVIS- Has appointment with rheumatology next week--pt on prednisone
ADHD/Anxiety/depression- Continue amitriptyline, aripiprazole
code status-Full code
DVT proph
consider d/c 12/26 as per cards
Original Note:
Today's Communication/Plan
-
Consider increasing Imdur.
Continue Eliquis
Continue amiodarone
Due to A-fib recurrence, amiodarone increased.
Lopressor 25 mg every 6 hours
Continue IV Lasix 40 mg twice daily.
Continue statin
Consult Cardiology
Assessment / Plan
Assessment / Plan
Patient is a 69-year-old female presenting to the ED on 12/20/2024 for acute NSTEMI. Her symptoms were treated and a cardiac cath was done and it was decided based upon its findings that she would not be managed surgically but rather through
medical management. Around 4 AM this morning, she complained of pain radiating to bilateral arms and back. She rated the pain a 5 out of 10. Patient given 3 doses of sublingual nitrogen without any relief. At this point EKG showed atrial
fibrillation, heart rate 100. She was given morphine 2 mg IV x 1 with still no relief. A repeat CBC CMP magnesium and troponin were ordered repeat EKG showed normal sinus rhythm with heart rate of 78. Cardiology consult was placed, Dr. Florez
reviewed events, stat EKGs. She was started on Imdur 30 mg per oral daily dosage. Cardiology wanted her 8 AM dose given earlier, and then they will recheck on patient this morning. Around 5 AM patient stated her chest pain was slowly resolving
she is rating the pain a 4 out of 10. Patient appears more comfortable no labored breathing, she is resting in her bed. Patient appears to be comfortable. Patient is continued on amiodarone 200 mg twice daily. She also started on Lopressor 25 mg
every 6 hours with plans to switch to metoprolol. She has continued Eliquis, IV Lasix, Lipitor. Last night, patient had another episode of chest pain that she states was sudden onset and radiated down her arms. Another EKG was ordered, 3 doses of
sublingual nitrogen were given along with 3 mg of morphine. A chest x ray was ordered and patient was prescribed IV protonix, malaax and some ambien. As of this morning, patient is in bed comfortable and in NAD. She denies any constitutional
symptoms like fever, chills, nausea vomiting. She also denies currently having any chest pain. As per her nurse, issue may be anxiety related. Patient has not had a bowel movement since shes been here but is passing gas.
Plan:
#Non-STEMI with peak troponin 6.5
Troponins trending downwards s/p cardiac cath (no significant lesions found amenable to intervention)
Medical management
Chest pain and runs of A-Fib around 4 AM on 12/24/24
CT of the chest/abdomen/pelvis was negative for dissection
Echo EF 60 to 65%, moderate LVH no RWMA
Consider increasing Imdur.
Consult Cardiology
#History of PAF with recurrent AF this admission. History of PVI April 2023 and November 2024
S/P cardioversion x 4, ablation/PVI 1 month ago, prior Watchman 2022
Continue Eliquis
Continue amiodarone
Due to A-fib recurrence, amiodarone increased.
Lopressor 25 mg every 6 hours
Plan to transition to metoprolol in a.m. Was on 100 mg twice daily prior to admission.
# Chronic diastolic heart failure/chronic lymphedema
- Continue diuresis with IV Lasix 40 mg twice daily.
#Essential hypertension
Controlled
#HLD
Continue statin
#Right middle cerebral artery CVA, 07/2019, and two previous smaller CVAs, 2016
-With residual left-sided weakness and expressive aphasia-now active issues this admission.
- Continue statin and Eliquis anticoagulation.
#History of positive AVIS
Appointment with rheum next week
Currently on prednisone
#ADHD/anxiety/depression
Continue amitriptyline aripiprazole he
#Constipation
Senna switched from PRN to daily
CODE STATUS: Full code
DVT prophylaxis
Anticipated Discharge: 24 - 48 hours
Subjective/Interval History
-
Date of Service: December 25, 2024
Patient is a 69-year-old female presenting to the ED on 12/20/2024 for acute NSTEMI. Her symptoms were treated and a cardiac cath was done and it was decided based upon its findings that she would not be managed surgically but rather through
medical management. Around 4 AM this morning, she complained of pain radiating to bilateral arms and back. She rated the pain a 5 out of 10. Patient given 3 doses of sublingual nitrogen without any relief. At this point EKG showed atrial
fibrillation, heart rate 100. She was given morphine 2 mg IV x 1 with still no relief. A repeat CBC CMP magnesium and troponin were ordered repeat EKG showed normal sinus rhythm with heart rate of 78. Cardiology consult was placed, Dr. Florez
reviewed events, stat EKGs. She was started on Imdur 30 mg per oral daily dosage. Cardiology wanted her 8 AM dose given earlier, and then they will recheck on patient this morning. Around 5 AM patient stated her chest pain was slowly resolving
she is rating the pain a 4 out of 10. Patient appears more comfortable no labored breathing, she is resting in her bed. Patient appears to be comfortable. Patient is continued on amiodarone 200 mg twice daily. She also started on Lopressor 25 mg
every 6 hours with plans to switch to metoprolol. She has continued Eliquis, IV Lasix, Lipitor. Last night, patient had another episode of chest pain that she states was sudden onset and radiated down her arms. Another EKG was ordered, 3 doses of
sublingual nitrogen were given along with 3 mg of morphine. A chest x ray was ordered and patient was prescribed IV protonix, malaax and some ambien. As of this morning, patient is in bed comfortable and in NAD. She denies any constitutional
symptoms like fever, chills, nausea vomiting. She also denies currently having any chest pain. As per her nurse, issue may be anxiety related. Patient has not had a bowel movement since shes been here but is passing gas.
Objective Data
-
Labs:
Laboratory Results
12/25/24
03:56
WBC 10.4
Hgb 12.9
Hct 39.2
Plt Count 220
Sodium 139
Potassium 3.9
Chloride 101
Carbon Dioxide 32 H
BUN 20 H
Creatinine 0.9
Glucose 100 H
Calcium 8.9
Total Bilirubin 0.8
AST 34
ALT 72 H
Alkaline Phosphatase 146 H
Vital Signs:
Vital Signs
Temp Pulse Resp BP Pulse Ox
98.2 F 90 18 127/75 97
12/25/24 03:54 12/24/24 23:30 12/25/24 03:54 12/24/24 23:30 12/25/24 03:54
I&O
12/23/24 12/24/24 12/25/24
06:59 06:59 06:59
Intake Total 500 / 500 720 / 720 960 / 960
Output Total 1500 / 1500 525 / 525 200 / 200
Balance -1000 / -1000 195 / 195 760 / 760
EKG: QTC: 433 ms�480 ms�387 ms�505 ms - 512 ms (trending upwards)
Longer QTc is associated with a higher incidence and risk of recurrence of A-fib�continue to monitor.
Chest X-ray (12/24/24):
IMPRESSION:
1. Mild cardiomegaly.
2. Left atrial appendage occlusion Watchman device in place.
3. Mild elevation of the right hemidiaphragm.
Review of Systems
-
History Source: Patient
All other systems: Reviewed and negative
Physical Exam
-
General: Well Developed, Well Nourished and No Apparent Distress
HEENT: Normocephalic and Atraumatic
Respiratory: Clear to Auscultation
Cardiac: Irregular Rhythm
Breast: Deferred by me
GI: Soft, Nontender and Nondistended
Musculoskeletal: No Clubbing, No Cyanosis and No Edema
Psych: Intact Judgement/Insight
Data Reviewed
-
Diagnostic Radiology: Report Reviewed by me
Medical Tests (Nuc Med, Echo etc): Report Reviewed by me and Discussed with Physician
Labs: Labs Reviewed by me and Discussed with Physician
[2024-12-25] MEDS: LOPRESSOR 25 MG PO ×4 (06:13→23:40)
--- NOTE | 2024-12-25 07:55 | PTCARENOTE ---
Assumed care of pt from prev nsg shift; Pt drowsy but easily arousable, AAOX3, w/no c/o CP or SOB this AM. Pt's VSS w/HR 60's this AM, BP 131/74. Pt is SB/SR w/1st deg AVB on telemetry monitoring. Pt w/R radial site [employer] w/some ecchymosis but no
signs or symptoms of bleeding or hematoma. Pt still w/no BM this AM. PRN bowel regimen administered as ordered. Pt w/+BS, +flatus & abd is soft, non-tender. Pt w/no addtl needs at this time. Plan of care ongoing.
[2024-12-25] MEDS: PROZAC 10 MG PO (10:06)
[2024-12-25] MEDS: DETROL LA 4 MG PO (10:06)
[2024-12-25] MEDS: VITAMIN D3 (cholecalciferol) 250 MCG PO (10:06)
[2024-12-25] MEDS: THERAGRAN 1 TABLET PO (10:06)
[2024-12-25] MEDS: PACERONE 200 MG PO ×2 (10:06→20:05)
[2024-12-25] MEDS: PROTONIX 40 MG PO (10:06)
[2024-12-25] MEDS: DELTASONE 30 MG PO (10:07)
[2024-12-25] MEDS: ELIQUIS 5 MG PO ×2 (10:07→20:04)
[2024-12-25] MEDS: LASIX 40 MG IV (10:07)
[2024-12-25] MEDS: ASPIR LOW (ENTERIC COATED) 81 MG PO (10:07)
[2024-12-25] MEDS: IMDUR (EXTENDED RELEASE) 30 MG PO (10:07)
[2024-12-25] MEDS: NEURONTIN 100 MG PO ×2 (10:07→20:05)
[2024-12-25] MEDS: ABILIFY 5 MG PO (10:08)
[2024-12-25] MEDS: FLUSH (NSS) 2 FLUSH IV (10:08)
--- NOTE | 2024-12-25 10:56 | PN.CDI ---
CDI
- -
CDI:
Physician Documentation Request
Admit Date: 12/20/24 16:39
Dear Doctor Feliz,
Clinical Indicators:
Cath Report: LVEDP of 35 mmHg
12/22 Lasix 40 mg IV BID ordered.
12/23 Cardiology addendum, '...acute on chronic HFpEF'
12/24 PN, 'Chronic diastolic heart failure/Chronic lymphedema'
Due to potentially conflicting documentation, please clarify the most likely acuity of CHF you are evaluating, treating or monitoring.
Acute on chronic HFpEF
Chronic HFpEF only (documentation complete)
Other, please specify
Use of terms such as suspected, likely, concern for, or probable (associated with a specific diagnosis that is being evaluated, monitored, or treated as if it exists) are acceptable and can be coded in the inpatient setting, when documented at the
time of discharge.
Thank you,
ELSA Lambert RN
CDI Specialist
available via tiger text
Please use your independent medical judgment in providing your response.
[2024-12-25] MEDS: SENOKOT-S 1 TABLET PO (12:24)
[2024-12-25] MEDS: MIRALAX 17 GRAMS PO (12:24)
--- NOTE | 2024-12-25 13:45 | W.PN.CARDCBS ---
Addendum entered and electronically signed by Shawn Florez MD 12/25/24 14:10:
Patient seen and examined
Agree with KIMBERLI Wheeler's note and assessment
Agree with KIMBERLI Wheeler's plan
Paroxysmal atypical atrial flutter interspersed with predominant sinus rhythm noted on telemetry
For chest pain is difficult to characterize with an apparent musculoskeletal component responding to narcotic yet at times a partial response to nitrates and antianginals. Her cardiac catheterization suggests a small AV groove circumflex vessel
which has a 95% or greater stenosis which I imagine is certainly contributing to any anginal symptoms. The vessel is too small to stent please see Dr. Montana's prior report. Much of the visit today was spent discussing stable versus unstable angina
with patient and reinforcing that if her symptoms are indeed stable with periodic exertional symptoms that we can manage this hopefully with medications which are both daily such as Imdur and as needed such as sublingual nitroglycerin.
Exam:
Neurologic exam stable
Cor regular no murmurs. Telemetry demonstrates paroxysmal atrial arrhythmias
HEENT normocephalic atraumatic
JVP 6
Lungs clear to auscultation bilaterally
Abdomen soft nontender positive bowel sounds
No extremity edema
Assess:
chest pain/NSTEMI
Paroxysmal atrial fibrillation status post PVI x 04/2023, 11/2024
Status post Watchman 2022,
History of CVA
Hypertension
Hyperlipidemia
Chronic diastolic heart failure, preserved ejection fraction.
Chronic lymphedema with venous insufficiency.
Obstructive sleep apnea, compliant with CPAP.
Chronic kidney disease stage 3.
Hiatal hernia.
Diverticulosis.
Hemorrhoids.
Nonalcoholic steatohepatitis with mildly elevated transaminases.
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
Remote migraines.
Mild cognitive impairment.
Ambulatory dysfunction with history of falls.
Positive AVIS.
Echo 12/20/24: EF 60 to 65%, stage II diastolic dysfunction, mild to moderate MR, mild to moderate TR, PA pressure 51
CTA chest with no evidence for dissection aneurysm or hematoma.
Plan:
-Medical management of CAD
-Given recent ablation we will try a short course of Motrin 600 mg twice a day x 3 days to see if there is an inflammatory component
- Since admission she has been in and out of atrial fibrillation, however overall burden decreasing with increased dose of amiodarone 200 mg twice daily to continue for 1 additional week upon DC. follow QTc by EKG. placed on po lopressor 25mg Q6H
for today, plan to transition to toprol 50mg BID upon DC. was on 100mg BID prior to admission. Could consider increasing the metoprolol dose as outpatient
- Continue aspirin, Eliquis.
- Wedge by cath noted to be elevated at 35. was diuresed. Cr stable. transition to po lasix 40mg BID.
- follow LFTs. Continue Lipitor
- ambulate
-Appears to be approaching discharge and would consider 1024 discharge to home if her symptoms are improving. Much of our discussion centered around trying to manage chronic stable angina or chest symptoms at home although obviously it can be
difficult at times if the chest pressure or chest symptoms are prolonged or escalate Tory and under those circumstances I discussed with patient that a call to the on-call physician or a trip to the emergency room would be considered.
- OP cardiac follow up with Dr. Cabrera
- d/w nursing
Original Note:
Today's Communication / Plan
-
Short course of Motrin (3 days), possibly chest discomfort is inflammatory in origin
Does not appear to be cardiac as not relieved by nitro, but is with morphine
Continue amiodarone 200 mg twice daily for 1 additional week on discharge
Continue Lopressor, plan to transition to Toprol 50mg BID upon discharge
continue asa, eliquis, PPI
Transition to p.o. Lasix 40 mg twice daily
Ambulate
Outpatient cardiac follow-up with Dr. Cabrera arranged
Aiming for discharge in a.m.
Impression / Plan
-
Primary Real Estate Investment Analyst: Dr. Cabrera of [facility]
Assess:
chest pain/NSTEMI
Paroxysmal atrial fibrillation status post PVI x 04/2023, 11/2024
Status post Watchman 2022,
History of CVA
Hypertension
Hyperlipidemia
Chronic diastolic heart failure, preserved ejection fraction.
Chronic lymphedema with venous insufficiency.
Obstructive sleep apnea, compliant with CPAP.
Chronic kidney disease stage 3.
Hiatal hernia.
Diverticulosis.
Hemorrhoids.
Nonalcoholic steatohepatitis with mildly elevated transaminases.
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
Remote migraines.
Mild cognitive impairment.
Ambulatory dysfunction with history of falls.
Positive AVIS.
Echo 12/20/24: EF 60 to 65%, stage II diastolic dysfunction, mild to moderate MR, mild to moderate TR, PA pressure 51
CTA chest with no evidence for dissection aneurysm or hematoma.
Plan:
- Patient presented with chest pain and ruled in for NSTEMI, peak troponin 6.5
- Underwent cardiac catheterization 12/22/2024 with 95-99% stenosis of left circumflex proper, however was very small caliber vessel and not felt to be PCI target, so plan for medical management
- Continues with occasional episodes of chest discomfort with associated numbness in her arm/fingers, but not relieved with sublingual nitro. EKGs remained stable. Troponin downtrending as of 12/24. Has improvement with morphine and is able to
sleep. Initial thought that being in A-fib with higher heart rates was causing ischemia, however most recent episode of pain occurred while in sinus rhythm. Suspect noncardiac chest pain. Will give short course of Motrin 600 mg twice daily if
inflammatory in origin.
- Echo 12/20 with results as above, EF preserved
- She also with history of PAF status post PVI 04/2023 and most recently 11/2024
- Since admission she has been in and out of atrial fibrillation, however overall burden decreasing with increased dose of amiodarone 200 mg twice daily to continue for 1 additional week upon DC. follow QTc by EKG. placed on po lopressor 25mg Q6H
for today, plan to transition to toprol 50mg BID upon DC. was on 100mg BID prior to admission.
- Continue aspirin, Eliquis.
- Wedge by cath noted to be elevated at 35. was diuresed. Cr stable. transition to po lasix 40mg BID.
- follow LFTs. Continue Lipitor
- ambulate
- planning for DC in AM
- OP cardiac follow up with Dr. Cabrera
- d/w nursing
Progress Note - Real Estate Investment Analyst
Subjective
Date of Service: December 25, 2024
Remains with intermittent A-fib as well as periodic symptoms of chest discomfort relieved with morphine
Objective
Labs:
12/25/24 03:56
12/25/24 03:56
Labs
Hgb 12.9 g/dL (12.0-16.0) 12/25/24 03:56
Hct 39.2 % (37.0-47.0) 12/25/24 03:56
Plt Count 220 10^3/uL (130-400) 12/25/24 03:56
APTT 107.7 Sec (23.4-35.0) H 12/22/24 08:37
Sodium 139 mmol/L (135-145) 12/25/24 03:56
Potassium 3.9 mmol/L (3.5-5.1) 12/25/24 03:56
BUN 20 mg/dl (7-17) H 12/25/24 03:56
Creatinine 0.9 mg/dL (0.6-1.0) 12/25/24 03:56
Glucose 100 mg/dl (70-99) H 12/25/24 03:56
Troponins
12/24/24
04:49
Troponin I 1.990 H*
Vital Signs and I&O:
Vital Signs
Temp Pulse Resp BP Pulse Ox
97.5 F 95 16 112/65 98
12/25/24 11:24 12/25/24 12:00 12/25/24 11:24 12/25/24 11:24 12/25/24 11:24
Vital Signs
Temp Pulse Resp BP Pulse Ox
97.5 F 95 16 112/65 98
12/25/24 11:24 12/25/24 12:00 12/25/24 11:24 12/25/24 11:24 12/25/24 11:24
Intake & Output
12/23/24 12/24/24 12/25/24 12/26/24
07:59 07:59 07:59 07:59
Intake Total 500 / 500 720 / 720 960 / 960 720 / 720
Output Total 1500 / 1500 525 / 525 200 / 200
Balance -1000 / -1000 195 / 195 760 / 760 720 / 720
Physical Exam
Physical Exam
GEN: No distress, awake, alert, oriented x3. Obese. On supplemental oxygen
HEENT: supple, anicteric, mmm, EOMI
LUNGS: CTA bilaterally, no wheezes/rales
CV: Irreg, S1/S2, 1/6 murmur
ABD: soft, BS+, NT/ND
EXT: No cyanosis, clubbing. trace edema of B/L LE
NEURO: Gross non-focal
SKIN: Warm, pink, dry. No rash
[2024-12-25] MEDS: MOTRIN 600 MG PO ×2 (14:09→20:05)
--- NOTE | 2024-12-25 15:20 | PTCARENOTE ---
Assumed care of Pt, A,A+Ox3, denies pain, offers no complaints. and son are visiting
[2024-12-25] MEDS: LASIX 40 MG PO (16:33)
[2024-12-25] MEDS: TYLENOL 650 MG PO (17:33)
--- NOTE | 2024-12-25 17:54 | PTCARENOTE ---
Pt c/o headache, med with Tylenol 650 mg po as ordered. Pt encouraged to walk, she agreed to take a walk in halls with her .
[2024-12-25] MEDS: LIPITOR 40 MG PO (21:17)
[2024-12-25] MEDS: ELAVIL 50 MG PO (21:18)
[2024-12-25] MEDS: MAGNESIUM OXIDE 400 MG PO (21:18)
[2024-12-25] MEDS: AMBIEN 10 MG PO (21:18)
[2024-12-25] MEDS: MORPHINE SULFATE 1 MG IV ×2 (21:48→22:22)
--- NOTE | 2024-12-25 22:59 | PTCARENOTE ---
Received patient at change of shift. SR/SB on the monitor, HR in the 50-60s. Ambulated in the hallway with RN.
2150 pt complained of L sided chest and arm pain/heaviness. VSS. PRN 1mg Morphine administered. ZOO DIRECTOR Richa Cordova notified. Another 1mg of morphine administered as per ZOO DIRECTOR.
2245 Pt resting comfortably in bed. Call he within reach.
[2024-12-26 04:35] VITALS: BMI 40.3
[2024-12-26 04:38] VITALS: BP 122/93
[2024-12-26 06:03] VITALS: BP 128/63
[2024-12-26] MEDS: LOPRESSOR 25 MG PO (06:03)
--- NOTE | 2024-12-26 06:42 | W.PN.HOSP.TC ---
Addendum entered and electronically signed by Hannah Das MD 12/26/24 19:16:
ERROR: should read acute on chronic diastolic heart failure....
Addendum entered and electronically signed by Hannah Das MD 12/26/24 19:09:
I saw and evaluated the patient independently. I reviewed and discussed the resident�s note and agree with findings and plan as documented by Dr. Piper.
GENERAL: well developed, well nourished, female in no apparent distress
HEENT: NC/AT
HEART: irreg irreg
LUNGS : clear to auscultation bilaterally
ABDOM: soft, nontender, nondistended, + bowel sounds
EXT: no cyanosis, clubbing, or edema
NEUROLOGIC: grossly intact
NSTEMI-- Troponin came down, peaked at 6.55--s/p cardiac cath with no significant lesions found amenable to intervention--medical management---apprec cards--CTA chest/ab/pelvis neg for dissection- Echo EF 60-65% G2DD, mod LVH no RWMA
Persistent atrial fibrillation (more like paroxysmal since has had periods of sinus rhythm)--s/p cardioversion x 4, ablation/PVI 1 month ago, and prior Watchman 2022-- Continue Eliquis- Continue amiodarone--Metoprolol as tolerated--back in
afib--amio being increased
Chronic diastolic heart failure/Chronic lymphedema- Continue Lasix
Essential hypertension--BP controlled
Hyperlipidemia- Continue statin
History of right middle cerebral artery CVA
History of positive AVIS- Has appointment with rheumatology next week--pt on prednisone
ADHD/Anxiety/depression- Continue amitriptyline, aripiprazole
code status-Full code
DVT proph
d/c
Original Note:
Today's Communication/Plan
-
Chronic Diastolic HFpEF
Assessment / Plan
Assessment / Plan
Patient is a 69-year-old female presenting to the ED on 12/20/2024 for acute NSTEMI. Her symptoms were treated and after cardiac catheterization procedure it was decided that she would be manage medically rather than surgically. Patient has a
history of going into atrial fibrillation of at least 2 nights throughout her hospital stay. Cardiology was consulted. EKGs were ordered, troponin and all relevant lab work were trended and she was managed medically with sublingual nitroglycerin
and morphine as well as IV Protonix Maalox and Ambien. Interestingly, patient would be back to normal and NAD throughout the rest of the day. Issue may be anxiety related. Last night patient suffered her latest episode around 10 PM where she
states she had tingling pain in her right arm that radiated downwards. She did not go to shock. She was given morphine and had just taken an Ambien Ambien so she went to sleep. This morning patient was back to normal and was in NAD. She reports
no nausea vomiting or fever but complains of severe constipation. As per ip litigation associate patient can elect to do PT/rehab or go home. Will monitor for 1-2 bowel movements and have her OOB and ambulating. As per nurse, patient had 2 very large soft
bowel movements around 2:14 PM. She also expressed her desire not to be discharged to SNF, she wants to go home. She has been able to get OOB and ambulating with just supervision so does not need rehab. Patient is ready to be discharged today.
Plan:
#Stable Angina
� Managed with daily Imdur
� Managed with as needed sublingual nitroglycerin�
#Atrial Fibrillation
-Continue amiodarone 200 mg twice daily for 1 additional week at home upon D/C
-Transition to metoprolol 50 mg twice daily upon D/C
-Continue aspirin
-Continue Eliquis
-Transition to p.o. Lasix 40 mg twice daily
-Continue Lipitor
-Follow LFTs:
-Ambulate
-Cardio consult
#Constipation
Senna switched from PRN to daily
Patient was ordered milk of molasses enema to facilitate bowel movements. (She had 2 decent sized BMs)
# Chronic Diastolic HFpEF/Chronic Lymphedema
-Continue diuresis with IV Lasix 40 mg twice daily.
#Essential Hypertension
Controlled
#HLD
Continue statin
#Right middle cerebral artery CVA, 07/2019, and two previous smaller CVAs, 2017
-With residual left-sided weakness and expressive aphasia-now active issues this admission.
- Continue statin and Eliquis anticoagulation.
#History of positive AVIS
Appointment with rheum next week
Currently on prednisone
#ADHD/anxiety/depression
Continue amitriptyline/ aripiprazole
CODE STATUS: Full code
DVT prophylaxis
Anticipated Discharge: Within 24 hours
Subjective/Interval History
-
Date of Service: December 26, 2024
Patient is a 69-year-old female presenting to the ED on 12/20/2024 for acute NSTEMI. Her symptoms were treated and after cardiac catheterization procedure it was decided that she would be manage medically rather than surgically. Patient has a
history of going into atrial fibrillation of at least 2 nights throughout her hospital stay. Cardiology was consulted. EKGs were ordered, troponin and all relevant lab work were trended and she was managed medically with sublingual nitroglycerin
and morphine as well as IV Protonix Maalox and Ambien. Interestingly, patient would be back to normal and NAD throughout the rest of the day. Issue may be anxiety related. Last night patient suffered her latest episode around 10 PM where she
states she had tingling pain in her right arm that radiated downwards. She did not go to shock. She was given morphine and had just taken an Ambien Ambien so she went to sleep. This morning patient was back to normal and was in NAD. She reports
no nausea vomiting or fever but complains of severe constipation. As per ip litigation associate patient can elect to do PT/rehab or go home. Will monitor for 1-2 bowel movements and have her OOB and ambulating. As per nurse, patient had 2 very large soft
bowel movements around 2:14 PM. She also expressed her desire not to be discharged to SNF, she wants to go home. She has been able to get OOB and ambulating with just supervision so does not need rehab. Patient is ready to be discharged today.
Objective Data
-
Labs:
Laboratory Results
12/26/24
06:38
WBC Pending
Hgb Pending
Hct Pending
Plt Count Pending
Sodium Pending
Potassium Pending
Chloride Pending
Carbon Dioxide Pending
BUN Pending
Creatinine Pending
Glucose Pending
Calcium Pending
Total Bilirubin Pending
AST Pending
ALT Pending
Alkaline Phosphatase Pending
Vital Signs:
Vital Signs
Temp Pulse Resp BP Pulse Ox
98.3 F 58 18 128/63 95
12/26/24 04:39 12/26/24 06:03 12/26/24 04:39 12/26/24 06:03 12/26/24 04:39
I&O
12/24/24 12/25/24 12/26/24
06:59 06:59 06:59
Intake Total 720 / 720 960 / 960 720 / 720
Output Total 525 / 525 200 / 200
Balance 195 / 195 760 / 760 720 / 720
Review of Systems
-
History Source: Patient
All other systems: Reviewed and negative
Physical Exam
-
General: Well Developed, Well Nourished and No Apparent Distress
HEENT: Normocephalic and Atraumatic
Respiratory: Clear to Auscultation
Cardiac: Irregular Rhythm
Breast: Deferred by me
GI: Tender, Distended and Other (Constipated)
Rectal: Brown
Musculoskeletal: No Clubbing, No Cyanosis and No Edema
Psych: Intact Judgement/Insight
Data Reviewed
-
Diagnostic Radiology: Report Reviewed by me
Medical Tests (Nuc Med, Echo etc): Report Reviewed by me and Discussed with Physician
Labs: Labs Reviewed by me and Discussed with Physician
[2024-12-26 07:59] VITALS: BP 124/64
[2024-12-26] MEDS: DETROL LA 4 MG PO (10:07)
[2024-12-26] MEDS: ELIQUIS 5 MG PO (10:07)
[2024-12-26] MEDS: PACERONE 200 MG PO (10:07)
[2024-12-26] MEDS: THERAGRAN 1 TABLET PO (10:07)
[2024-12-26] MEDS: LASIX 40 MG PO (10:07)
[2024-12-26] MEDS: MOTRIN 600 MG PO (10:07)
[2024-12-26] MEDS: ASPIR LOW (ENTERIC COATED) 81 MG PO (10:08)
[2024-12-26] MEDS: PROZAC 10 MG PO (10:08)
[2024-12-26] MEDS: MIRALAX 17 GRAMS PO (10:08)
[2024-12-26] MEDS: IMDUR (EXTENDED RELEASE) 30 MG PO (10:08)
[2024-12-26] MEDS: NEURONTIN 100 MG PO (10:08)
[2024-12-26] MEDS: SENOKOT-S 1 TABLET PO (10:08)
[2024-12-26] MEDS: PROTONIX 40 MG PO (10:08)
[2024-12-26] MEDS: DELTASONE 20 MG PO (10:08)
[2024-12-26] MEDS: ABILIFY 5 MG PO (10:09)
[2024-12-26] MEDS: VITAMIN D3 (cholecalciferol) 250 MCG PO (10:09)
[2024-12-26] MEDS: FEOSOL PO (10:10)
[2024-12-26 11:20] VITALS: BP 106/58
[2024-12-26] MEDS: LOPRESSOR PO (13:19)
--- NOTE | 2024-12-26 13:44 | CM ---
Reviewed chart. Met with Mrs. Benson to review discharge plans. She states she is feeling better and hoping to go home soon. She states prior to admission she resides with her spouse in a one stroy home with a ramp to enter. She states prior to
admission she was ambulating with a single point cane and independent in adls. She states she has a single point cane, rolling walker and CPAP Machine at home. She states she does not have a prescription plan and uses [facility]. Medical work-up in
progress. The discharge plan is to return home with her spouse when medically stable.
[2024-12-26 16:00] LABS: Hematocrit 38.7 % (37.0-47.0); Hemoglobin 12.7 g/dL (12.0-16.0); Mean Corp Hgb Conc. 32.8 g/dL (33.0-37.0); Mean Corpuscular Volume 90.0 fL (81.0-99.0); Nucleated Red Blood Cells % 0 %; Platelet Count 209 10^3/uL (130-400); Red Cell Dist. Width 15.9 % (11.5-14.5)
[2024-12-26 16:05] LABS: ALT (SGPT) 60 U/L (0-35); AST (SGOT) 32 U/L (14-36); Albumin 3.5 g/dl (3.5-5.0); Alkaline Phosphatase 138 U/L (38-126); Blood Urea Nitrogen 24 mg/dl (7-17); Calcium 8.4 mg/dl (8.4-10.2); Carbon Dioxide 30 mmol/L (22-30); Chloride 97 mmol/L (98-107); Estimated Creatinine Clearance 59 ml/min; Glucose 122 mg/dl (70-99); Magnesium 2.3 mg/dl (1.6-2.3); Potassium 3.7 mmol/L (3.5-5.1); Sodium 131 mmol/L (135-145); Total Protein 6.6 g/dl (6.3-8.2); eGFR > 60.00
[2024-12-26] MEDS: FLUZONE HIGH-DOSE 2025-26 0.5 ML IM (16:22)
[2024-12-26] MEDS: LASIX PO (16:23)
--- NOTE | 2024-12-26 17:15 | PTCARENOTE ---
D/C'd pt's IV line & telemetry pack. Discussed pt's D/C instructions & medications w/pt & spouse. Pt left via WC w/spouse driving her home.
--- NOTE | 2024-12-26 18:05 | W.PN.CARDCBS ---
Today's Communication / Plan
-
Continue antianginals for medical therapy of CAD
PT/OT
Bowel regimen
Impression / Plan
-
Primary Cold Roll Packer Sheet Iron: Dr. Cabrera of [facility]
Assess:
chest pain/NSTEMI
Paroxysmal atrial fibrillation status post PVI x 04/2023, 11/2024
Status post Watchman 2022,
History of CVA
Hypertension
Hyperlipidemia
Chronic diastolic heart failure, preserved ejection fraction.
Chronic lymphedema with venous insufficiency.
Obstructive sleep apnea, compliant with CPAP.
Chronic kidney disease stage 3.
Hiatal hernia.
Diverticulosis.
Hemorrhoids.
Nonalcoholic steatohepatitis with mildly elevated transaminases.
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
Remote migraines.
Mild cognitive impairment.
Ambulatory dysfunction with history of falls.
Positive AVIS.
Echo 12/20/24: EF 60 to 65%, stage II diastolic dysfunction, mild to moderate MR, mild to moderate TR, PA pressure 51
CTA chest with no evidence for dissection aneurysm or hematoma.
Plan:
Non-STEMI with peak troponin 6.5
She is having atypical left-sided arm/chest discomfort of unclear etiology but I doubt angina. Per nursing the symptoms do seem to occur once family leaves so anxiety may be playing a part
- Continue antianginals and medical management of CAD. Transition at time of discharge to Toprol-XL 50 mg twice daily; she was on 100 mg twice daily prior to admission. Continue aspirin 81 mg daily. Continue Imdur 30 mg daily.
- Wedge by cath noted to be elevated at 35. Discharge with Lasix 40 mg twice daily
-Weight at time of discharge 220 pounds
- For now we will continue atorvastatin and monitor LFTs closely. Would consider transition to PCSK9 inhibitor as an outpatient. Lipid profile 12/22/2024 with LDL 40.
Constipation�abdominal pain who reports no BM since Sunday. Hospitalist team is aware and patient is receiving bowel regimen and will have an enema today.
Increased leukocytosis, afebrile�defer to primary
History of PAF with recurrent AF this admission. History of PVI April 2023 and November 2024
-Will increase amiodarone to 200 mg twice daily for 1 additional week after discharge and then decrease to 200 mg once daily
-Will need follow-up with EP
-Continue Eliquis anticoagulation
Heart failure with preserved ejection fraction with wedge on cath
- Diuresed well with IV Lasix
- Creatinine stable
History of RODRIGUES with mildly elevated transaminases and elevated LFTs this admission. Would recommend GI follow-up as an outpatient
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 Continue statin and Eliquis anticoagulation.
PT/OT consultation pending
Outpatient cardiac follow-up will be arranged with [facility]
Progress Note - Cold Roll Packer Sheet Iron
Subjective
Date of Service: December 26, 2024
Seen and examined. No current complaints.
Objective
Labs:
12/26/24 15:36
12/26/24 15:36
Labs
Hgb 12.7 g/dL (12.0-16.0) 12/26/24 15:36
Hct 38.7 % (37.0-47.0) 12/26/24 15:36
Plt Count 209 10^3/uL (130-400) 12/26/24 15:36
APTT 107.7 Sec (23.4-35.0) H 12/22/24 08:37
Sodium 131 mmol/L (135-145) L D 12/26/24 15:36
Potassium 3.7 mmol/L (3.5-5.1) 12/26/24 15:36
BUN 24 mg/dl (7-17) H 12/26/24 15:36
Creatinine 1.0 mg/dL (0.6-1.0) 12/26/24 15:36
Glucose 122 mg/dl (70-99) H 12/26/24 15:36
Troponins
12/24/24
04:49
Troponin I 1.990 H*
Vital Signs and I&O:
Vital Signs
Temp Pulse Resp BP Pulse Ox
99.4 F 53 20 106/58 90
12/26/24 15:05 12/26/24 13:19 12/26/24 15:05 12/26/24 11:20 12/26/24 15:05
Vital Signs
Temp Pulse Resp BP Pulse Ox
99.4 F 53 20 106/58 90
12/26/24 15:05 12/26/24 13:19 12/26/24 15:05 12/26/24 11:20 12/26/24 15:05
Intake & Output
12/24/24 12/25/24 12/26/24 12/27/24
06:59 06:59 06:59 06:59
Intake Total 720 / 720 960 / 960 720 / 720 960 / 960
Output Total 525 / 525 200 / 200
Balance 195 / 195 760 / 760 720 / 720 960 / 960
Physical Exam
Physical Exam
GEN: No distress, awake, alert, oriented x3. Obese
HEENT: mmm
Lungs: Decreased breath sounds, overall poor effort. Clear
CV: regular, S1/S2, no murmur
ABD: soft, BS+, NT/ND
EXT: Trace edema of bilateral lower extremity. Right radial c/d/i.
NEURO: Gross non-focal
--- NOTE | 2024-12-26 18:17 | W.DCSUMMARY ---
Addendum entered and electronically signed by Hannah Das MD 12/26/24 19:11:
Read, reviewed, and agree. See same day progress note for additional details. Time spent coordinating care, DC planning, review of DC plan of care with resident, transition of care, review of records in EMR, med rec, consults, notes, d/w
consultants, nursing, family, and CM = 31 minutes
Original Note:
Discharge Summary
Discharge Data
Date of Admission: 12/20/24
Date of Discharge: 12/26/24
-
Pending Results: No
Hospital Course
Patient is a 69-year-old female presenting to the ED on 12/20/2024 for acute NSTEMI. Her symptoms were treated and after cardiac catheterization procedure it was decided that she would be manage medically rather than surgically. Patient has a
history of going into atrial fibrillation of at least 2 nights throughout her hospital stay. Cardiology was consulted. EKGs were ordered, troponin and all relevant lab work were trended and she was managed medically with sublingual nitroglycerin
and morphine as well as IV Protonix Maalox and Ambien. Interestingly, patient would be back to normal and NAD throughout the rest of the day. Issue may be anxiety related. Last night patient suffered her latest episode around 10 PM where she
states she had tingling pain in her right arm that radiated downwards. She did not go to shock. She was given morphine and had just taken an Ambien Ambien so she went to sleep. This morning patient was back to normal and was in NAD. She reports
no nausea vomiting or fever but complains of severe constipation. As per cable worker helper patient can elect to do PT/rehab or go home. Will monitor for 1-2 bowel movements and have her OOB and ambulating. As per nurse, patient had 2 very large soft
bowel movements around 2:14 PM. She also expressed her desire not to be discharged to SNF, she wants to go home. She has been able to get OOB and ambulating with just supervision so does not need rehab. Patient is ready to be discharged today.
Discharge Plan
-
Patient Disposition: Home (Routine Discharge)
Discharge Diagnosis/Procedures: Non ST segment elevation myocardial infarction status post cardiac catheterization, Persistent atrial fibrillation, Chronic diastolic heart failure with preserved ejection fraction, Chronic lymphedema, Essential
hypertension, Hyperlipidemia, History of right middle cerebral artery cerebrovascular accident. History of positive antinuclear antibody, Attention deficit hyperactivity disorder, Anxiety, Depression
Condition: Fair
Diet: Low Cholesterol
Activity: As tolerated and No strenuous activity
Driving Restrictions: As prior to admission
Bathing Restrictions: None
Specialty Instructions: Weigh Daily- Call MD for wt gain/loss 3 lbs overnight/5 lbs in 1 week
Instructions: *PCP/Other Airways Operations Specialist Heart Failure Instructions
Stand Alone Forms: DC Instructions- Cath/EP Lab
Referrals:
Argelia Hewitt DO [Family Provider, Family Practice] - in less than 1 week
Enrike Cabrera DO [Affiliate, Cardiology] - 12/29/24 11:00 am
Referral Note: Please call with questions
Prescriptions:
New
nitroglycerin 0.4 mg Tablet, Sublingual
0.4 mg sublingual [id number] [id number] (Reason: chest pain) Qty: 30 0RF
polyethylene glycol 3350 17 gram Powder In Packet
17 g PO DAILY Qty: 10 0RF
isosorbide mononitrate 30 mg Tablet Extended Release 24 Hr
30 mg PO DAILY Qty: 30 0RF
pantoprazole 40 mg Tablet,Delayed Release (Dr/Ec)
40 mg PO DAILY Qty: 30 0RF
aspirin 81 mg Tablet,Delayed Release (Dr/Ec)
81 mg PO DAILY Qty: 30 0RF
Continued
fluoxetine 10 mg Tablet
10 mg PO DAILY
furosemide [Lasix] 40 mg Tablet
40 mg PO BID Qty: 60 0RF
atorvastatin 40 MG tablet
40 mg PO HS Qty: 30 0RF
amitriptyline 50 mg Tablet
50 mg PO HS Qty: 30 0RF
ferrous sulfate 325 mg (65 mg iron) Tablet
325 mg PO SUWEFR Qty: 30 0RF
gabapentin 100 mg capsule
100 mg PO BID Qty: 60 0RF
aripiprazole 5 mg tablet
5 mg PO DAILY Qty: 30 0RF
cholecalciferol (vitamin D3) [Vitamin D3] 125 mcg (5,000 unit) Tablet
250 mcg PO DAILY Qty: 30 0RF
Eliquis 5 mg Tablet
5 mg PO BID Qty: 60 0RF
prednisone 10 mg Tablet
10 mg PO DIRECTED Qty: 0 0RF
Rx Instructions:
4 tabs x 3 days, 3 tabs x 3 days, 2 tabs x 3 days, 1 tab x 3 days
therapeutic multivitamin Tablet
1 tab PO DAILY Qty: 30 0RF
magnesium oxide 500 mg magnesium Tablet
500 mg PO HS Qty: 30 0RF
zolpidem [Ambien] 10 mg Tablet
10 mg PO HS Qty: 30 0RF
solifenacin 10 mg tablet
10 mg PO DAILY Qty: 30 0RF
Changed
amiodarone 200 mg Tablet
200 mg PO BID Qty: 60 0RF
metoprolol succinate 100 mg Tablet Extended Release 24 Hr
50 mg PO BID Qty: 60 0RF
Discharge Orders:
Discharge Patient (As Directed); Ordered 12/26/24
Ordered By: Juan Alberto Piper
Care Plan Goals
Care Plan Goals:
Problem: Readiness for enhanced knowledge related to diagnosis and treatment plan
Goal: Understand your diagnosis and treatment plan needs, including medications if applicable.
Instructions: Know your diagnosis, underlying causes and treatment plan options, including medications if applicable. Consult with your health care team to learn about your diagnosis and treatment plan, including medications if applicable.
Discharge Date and Time
Discharge Date/Time: 12/26/24 17:17
Print Language: GHANAIAN
== END 2024-12-26 17:17 | disposition home or self-care (01) | DRG 280 ==
LOC: IVU 16:39
PROVIDERS: Internal Medicine; Internal Medicine Interventional Cardiology; Nurse Practitioner; Nurse Practitioner Family; Physician Assistant; ADMITTING PHYSICIAN Hospitalist; ATTENDING PHYSICIAN Internal Medicine; CONSULT PHYSICIAN Internal Medicine Cardiovascular Disease; EMERGENCY PHYSICIAN Emergency Medicine; FAMILY PHYSICIAN Student in an Organized Health Care Education/Training Program
PROC: B2111ZZ Fluoroscopy of Multiple Coronary Arteries using Low Osmolar Contrast (ICD-10-PCS; 2024-12-22)
PROC: 4A023N7 Measurement of Cardiac Sampling and Pressure, Left Heart, Percutaneous Approach (ICD-10-PCS; 2024-12-22)
PROC: 3E02340 Introduction of Influenza Vaccine into Muscle, Percutaneous Approach (ICD-10-PCS; 2024-12-26)
DX: I21.4 Non-ST elevation (NSTEMI) myocardial infarction (principal); I50.33 Acute on chronic diastolic (congestive) heart failure; I13.0 Hypertensive heart and chronic kidney disease with heart failure and stage 1 through stage 4 chronic kidney disease, or unspecified chronic kidney disease; I48.19 Other persistent atrial fibrillation; I69.354 Hemiplegia and hemiparesis following cerebral infarction affecting left non-dominant side; I25.2 Old myocardial infarction; F90.9 Attention-deficit hyperactivity disorder, unspecified type; F40.240 Claustrophobia; F32.A Depression, unspecified; Z79.82 Long term (current) use of aspirin; K59.00 Constipation, unspecified; E66.9 Obesity, unspecified; Z68.39 Body mass index [BMI] 39.0-39.9, adult; N18.30 Chronic kidney disease, stage 3 unspecified; Z79.01 Long term (current) use of anticoagulants; Z79.899 Other long term (current) drug therapy; Z23 Encounter for immunization
CPT/HCPCS: 71045; 71275; 74174; 80048; 80053; 80061; 83735; 84484; 85025; 85027; 85730; 86803; 90662; 93005; 93306; 93458; 96374; 96376; 99291; C1769; C1894; G0008; Q9967